=== PATIENT | female | born 1945 | race Caucasian/White ===

== ENCOUNTER 2019-12-12 07:51 | Outpatient (CLI) | payer MEDICARE, SELFPAY ==
[2019-12-12 08:48] LABS: Hematocrit 41.2 % (37.0-47.0); Hemoglobin 13.7 g/dL (12.0-15.0); Mean Corpuscular HGB Conc 33.3 g/dl (32-36); Mean Corpuscular Hemoglobin 30.9 pg (26-34); Mean Corpuscular Volume 92.8 fl (80-100); Mean Platelet Volume 9.5 fl (7.4-10.4); Platelet Count Result 353 k/mm3 (150-375); Red Blood Count 4.44 M/mm3 (4.2-5.4); Red Cell Distribution Width 13.3 % (11.5-14.5); White Blood Count 7.8 K/mm3 (4.5-10.0)
[2019-12-12 08:52] LABS: Alanine Aminotransferase 25 U/L (4-35); Albumin Level 4.4 g/dL (3.5-5.1); Alkaline Phosphatase 90 U/L (38-126); Aspartate Amino Transferase 31 U/L (14-36); Bilirubin,Total 1.3 mg/dL (0.2-1.3); Blood Urea Nitrogen 18 mg/dL (7-17); Calcium 9.3 mg/dL (8.4-10.2); Carbon Dioxide 25 mmol/L (22-30); Chloride 105 mmol/L (98-107); Cholesterol 187 mg/dL (0-200); Estimated Glomerular Filt Rate 44; Glucose 102 mg/dL (65-105); HDL Direct 40 mg/dL; Potassium 4.3 mmol/L (3.4-5.0); Rheumatoid Factor < 8.6 IU/ML (<12); Sodium 140 mmol/L (137-145); Triglycerides 276 mg/dL (<150)
[2019-12-12 09:03] LABS: LDL Cholesterol Direct 92 mg/dL
[2019-12-12 09:12] LABS: Creatinine Urine 138.8 mg/dL
[2019-12-12 09:16] LABS: MALB Creatinine Ratio 5.8 mg/g (0-30)
[2019-12-12 09:27] LABS: Free T4 Free Thyroxine 1.05 ng/mL (0.78-2.19)
[2019-12-12 09:49] LABS: Erythrocyte Sedimentation Rate 19 mm/hr (0-20)
== END 2019-12-12 07:52 | disposition home or self-care (01) ==
PROVIDERS: PCP Emergency Medicine; Visit Provider Emergency Medicine
DX: I10 Essential (primary) hypertension (principal); K21.0 Gastro-esophageal reflux disease with esophagitis; G62.9 Polyneuropathy, unspecified; N28.9 Disorder of kidney and ureter, unspecified
CPT/HCPCS: 36415; 80053; 80061; 82043; 84439; 84443; 85027; 85652; 86038; 86430

== ENCOUNTER 2020-03-22 07:38 | Outpatient (CLI) | payer MEDICARE, SELFPAY ==
[2020-03-22 08:10] LABS: Creatinine Urine 96.8 mg/dL; Total Protein Urine Random 9 mg/dL
[2020-03-22 09:09] LABS: Blood Urea Nitrogen 22 mg/dL (7-17); Calcium 8.9 mg/dL (8.4-10.2); Carbon Dioxide 23 mmol/L (22-30); Chloride 106 mmol/L (98-107); Estimated Glomerular Filt Rate 44; Glucose 102 mg/dL (65-105); Sodium 139 mmol/L (137-145)
[2020-03-22 10:40] LABS: Phosphorus 3.5 mg/dL (2.5-4.5)
== END 2020-03-22 07:39 | disposition home or self-care (01) ==
PROVIDERS: PCP Emergency Medicine; Visit Provider Internal Medicine Nephrology
DX: I12.9 Hypertensive chronic kidney disease with stage 1 through stage 4 chronic kidney disease, or unspecified chronic kidney disease (principal); N18.3 Chronic kidney disease, stage 3 (moderate)
CPT/HCPCS: 36415; 80069; 82570; 84156

== ENCOUNTER 2020-05-10 09:22 | Outpatient (CLI) | payer MEDICARE, SELFPAY ==
[2020-05-10 10:22] LABS: Iron 131 ug/dL (37-170)
== END 2020-05-10 09:23 | disposition home or self-care (01) ==
PROVIDERS: PCP Emergency Medicine; Visit Provider Emergency Medicine
DX: D50.9 Iron deficiency anemia, unspecified (principal)
CPT/HCPCS: 36415; 83540

== ENCOUNTER 2020-06-16 11:32 | Outpatient (CLI) | payer MEDICARE, SELFPAY ==
--- NOTE | ~2020-06-16 | MM_ITS ---
EXAMINATION: MM screening stephenie BI w bharat HISTORY: Screening mammogram TECHNIQUE: Craniocaudal and mediolateral oblique 3-D tomosynthesis images were obtained and synthetic 2-D images were generated. CAD analysis was submitted and interpreted. COMPARISON: 12/18/2018, 04/21/2017, 04/19/2015 bilateral digital screening mammogram examinations BREAST PARENCHYMAL COMPOSITION: The breasts are almost entirely fatty. FINDINGS: There is no evidence of suspicious mass, calcification, or architectural distortion to sugg est malignancy in either breast. There has been no suspicious interval change. IMPRESSION: 1. No mammographic evidence of malignancy. 2. Recommend routine screening mammography in one year. BI-RADS Category 1: Negative Reviewed, dictated and finalized at location A.
== END 2020-06-16 11:33 | disposition home or self-care (01) ==
LOC: ANHIMG 11:36
PROVIDERS: PCP Emergency Medicine; Visit Provider Emergency Medicine
DX: Z12.31 Encounter for screening mammogram for malignant neoplasm of breast (principal)
CPT/HCPCS: 77063; 77067

== ENCOUNTER 2020-08-04 08:15 | Outpatient (CLI) | payer MEDICARE, SELFPAY ==
[2020-08-04 09:01] LABS: Creatinine Urine 138.5 mg/dL; Total Protein Urine Random 9 mg/dL
[2020-08-04 09:08] LABS: Albumin Level 4.2 g/dL (3.5-5.1); Blood Urea Nitrogen 18 mg/dL (7-17); Calcium 9.5 mg/dL (8.4-10.2); Carbon Dioxide 28 mmol/L (22-30); Estimated Glomerular Filt Rate 40; Glucose 111 mg/dL (65-105); Phosphorus 3.8 mg/dL (2.5-4.5)
[2020-08-04 09:19] LABS: Anion Gap 9 mmol/L (8-16); Chloride 102 mmol/L (98-107); Potassium 4.3 mmol/L (3.4-5.0); Sodium 139 mmol/L (137-145)
== END 2020-08-04 08:16 | disposition home or self-care (01) ==
PROVIDERS: PCP Emergency Medicine; Visit Provider Internal Medicine Nephrology
DX: N18.32 Chronic kidney disease, stage 3b (principal); I12.9 Hypertensive chronic kidney disease with stage 1 through stage 4 chronic kidney disease, or unspecified chronic kidney disease; E55.9 Vitamin D deficiency, unspecified
CPT/HCPCS: 36415; 80069; 82570; 84156

== ENCOUNTER 2020-08-12 06:54 | Outpatient (NON) | payer MEDICARE, SELFPAY ==
[2020-08-13 14:52] LABS: SARS-CoV-2 RNA PCR Negative
== END 2020-08-12 06:55 ==
LOC: ANHCOVIDDT 07:05
PROVIDERS: PCP Emergency Medicine; Visit Provider Emergency Medicine
DX: R51.9 Headache, unspecified (principal); Z20.828 Contact with and (suspected) exposure to other viral communicable diseases
CPT/HCPCS: 87635; C9803; U0003

== ENCOUNTER 2020-11-19 08:08 | Outpatient (CLI) | payer MEDICARE, SELFPAY ==
[2020-11-19 08:48] LABS: Hematocrit 43.2 % (37.0-47.0); Hemoglobin 14.7 g/dL (12.0-15.0); Mean Corpuscular Hemoglobin 31.8 pg (26-34); Mean Corpuscular Volume 93.5 fl (80-100); Mean Platelet Volume 9.5 fl (7.4-10.4); Platelet Count Result 319 k/mm3 (150-375); Red Blood Count 4.62 M/mm3 (4.2-5.4); Red Cell Distribution Width 13.7 % (11.5-14.5); White Blood Count 7.6 K/mm3 (4.5-10.0)
[2020-11-19 09:00] LABS: Alanine Aminotransferase 26 U/L (4-35); Albumin Level 4.3 g/dL (3.5-5.1); Alkaline Phosphatase 78 U/L (38-126); Anion Gap 7 mmol/L (8-16); Aspartate Amino Transferase 33 U/L (14-36); Bilirubin,Total 1.7 mg/dL (0.2-1.3); Blood Urea Nitrogen 19 mg/dL (7-17); Calcium 9.6 mg/dL (8.4-10.2); Carbon Dioxide 26 mmol/L (22-30); Chloride 106 mmol/L (98-107); Cholesterol 190 mg/dL (0-200); Estimated Glomerular Filt Rate 40; Glucose 110 mg/dL (65-105); HDL Direct 43 mg/dL; Potassium 4.4 mmol/L (3.4-5.0); Sodium 139 mmol/L (137-145); Triglycerides 189 mg/dL (<150)
[2020-11-19 09:11] LABS: LDL Cholesterol Direct 96 mg/dL
[2020-11-19 09:53] LABS: Iron 148 ug/dL (37-170)
[2020-11-19 10:02] LABS: Percent Iron Saturation 40 % (20-50)
[2020-11-19 10:10] LABS: Free T4 Free Thyroxine 1.18 ng/mL (0.78-2.19)
[2020-11-19 10:15] LABS: Vitamin D 25 Hydroxy 50.6 ng/mL
[2020-11-19 10:25] LABS: Add Urine Microscopic? YES; Appearance Urine Clear (Clear); Bilirubin Urine Negative (Negative); Blood Urine Negative (Negative); Color Urine Yellow (Yellow); Glucose Urine UA Negative (Negative); Ketones Urine Negative (Negative); Leukocyte Esterase Ur 2+ LEU/UL (NEGATIVE); Mucus Urine Few /lpf; Nitrate Urine Negative (Negative); Protein Urine Negative (Negative); Specific Grav Ur 1.016 (1.001-1.035); Squamous Epithelial Cell Urine Many /hpf (Few); Transitional Epi Cells Urine Rare /hpf (None Seen); Urobilinogen Urine Negative mg/dL (<2.0)
[2020-11-19 10:43] LABS: Creatinine Urine 190.2 mg/dL
[2020-11-19 10:48] LABS: MALB Creatinine Ratio 7.1 mg/g (0-30); Microalbumin Urine Random 13.5 mg/L (0-16.7)
== END 2020-11-19 08:09 | disposition home or self-care (01) ==
PROVIDERS: PCP Emergency Medicine; Visit Provider Emergency Medicine
DX: D64.9 Anemia, unspecified (principal); M54.5 Low back pain; I12.9 Hypertensive chronic kidney disease with stage 1 through stage 4 chronic kidney disease, or unspecified chronic kidney disease; N18.30 Chronic kidney disease, stage 3 unspecified
CPT/HCPCS: 36415; 80053; 80061; 81001; 82043; 82306; 83540; 83550; 84439; 84443; 85027

== ENCOUNTER 2020-12-23 07:39 | Outpatient (CLI) | payer MEDICARE, SELFPAY ==
[2020-12-23 09:17] LABS: Add Urine Microscopic? YES; Appearance Urine Cloudy (Clear); Bacteria Urine Trace /hpf; Bilirubin Urine Negative (Negative); Blood Urine Negative (Negative); Color Urine Yellow (Yellow); Glucose Urine UA Negative (Negative); Ketones Urine Negative (Negative); Leukocyte Esterase Ur 3+ LEU/UL (NEGATIVE); Mucus Urine Rare /lpf; Nitrate Urine Negative (Negative); Protein Urine Negative (Negative); Specific Grav Ur 1.017 (1.001-1.035); Squamous Epithelial Cell Urine Many /hpf (Few); Urobilinogen Urine Negative mg/dL (<2.0); WBC Urine 31-50 /hpf (0-3)
[2020-12-23 09:25] LABS: Alanine Aminotransferase 29 U/L (4-35); Albumin Level 4.1 g/dL (3.5-5.1); Alkaline Phosphatase 78 U/L (38-126); Anion Gap 6 mmol/L (8-16); Aspartate Amino Transferase 38 U/L (14-36); Bilirubin,Total 1.5 mg/dL (0.2-1.3); Blood Urea Nitrogen 26 mg/dL (7-17); Carbon Dioxide 28 mmol/L (22-30); Chloride 105 mmol/L (98-107); Estimated Glomerular Filt Rate 44; Glucose 107 mg/dL (65-105); Potassium 4.2 mmol/L (3.4-5.0); Sodium 139 mmol/L (137-145)
[2020-12-23 10:14] LABS: Free T4 Free Thyroxine 1.11 ng/mL (0.78-2.19)
[2020-12-26 06:03] LABS: Thyroid Peroxidase Antibodies 663 IU/mL (<9)
[2020-12-26 08:03] LABS: Triiodothyronine T3 Free 2.9 pg/mL (2.3-4.2)
== END 2020-12-23 07:40 | disposition home or self-care (01) ==
LOC: ANHLAB 07:47
PROVIDERS: PCP Emergency Medicine; Visit Provider Emergency Medicine
DX: R79.89 Other specified abnormal findings of blood chemistry (principal); E03.9 Hypothyroidism, unspecified
CPT/HCPCS: 36415; 80053; 81001; 84439; 84443; 84481; 86376; 87077; 87086; 87088; 87186

== ENCOUNTER 2021-01-06 09:49 | Outpatient (CLI) | payer MEDICARE, SELFPAY ==
[2021-01-06 10:20] LABS: Add Urine Microscopic? YES; Appearance Urine Clear (Clear); Bilirubin Urine Negative (Negative); Blood Urine Negative (Negative); Color Urine Yellow (Yellow); Glucose Urine UA Negative (Negative); Ketones Urine Negative (Negative); Leukocyte Esterase Ur Trace LEU/UL (NEGATIVE); Mucus Urine Rare /lpf; Nitrate Urine Negative (Negative); Protein Urine Negative (Negative); Specific Grav Ur 1.012 (1.001-1.035); Squamous Epithelial Cell Urine Occasional /hpf (Few); Urobilinogen Urine Negative mg/dL (<2.0); WBC Urine 0-3 /hpf (0-3)
== END 2021-01-06 09:50 | disposition home or self-care (01) ==
LOC: ANHLAB 09:53
PROVIDERS: PCP Emergency Medicine; Visit Provider Emergency Medicine
DX: N39.0 Urinary tract infection, site not specified (principal)
CPT/HCPCS: 81001; 87077; 87086; 87088; 87147; 87181; 87186

== ENCOUNTER 2021-01-28 08:25 | Outpatient (CLI) | payer MEDICARE, SELFPAY ==
[2021-01-28 08:56] LABS: Creatinine Urine 151.9 mg/dL; Total Protein Urine Random 11 mg/dL; Ur Ttl Prot Creatinine Ratio 0.07 mg/mg (0-0.20)
[2021-01-28 08:59] LABS: Albumin Level 4.1 g/dL (3.5-5.1); Anion Gap 5 mmol/L (8-16); Blood Urea Nitrogen 24 mg/dL (7-17); Carbon Dioxide 27 mmol/L (22-30); Chloride 107 mmol/L (98-107); Estimated Glomerular Filt Rate 37; Glucose 107 mg/dL (65-105); Phosphorus 3.6 mg/dL (2.5-4.5); Potassium 4.2 mmol/L (3.4-5.0); Sodium 139 mmol/L (137-145)
[2021-01-28 09:25] LABS: Parathyroid Intact 46.7 pg/mL (7.5-53.5)
[2021-01-28 10:08] LABS: Vitamin D 25 Hydroxy 45.9 ng/mL
== END 2021-01-28 08:26 | disposition home or self-care (01) ==
PROVIDERS: PCP Emergency Medicine; Visit Provider Internal Medicine Nephrology
DX: I12.9 Hypertensive chronic kidney disease with stage 1 through stage 4 chronic kidney disease, or unspecified chronic kidney disease (principal); N18.32 Chronic kidney disease, stage 3b
CPT/HCPCS: 36415; 80069; 82306; 82570; 83970; 84156

== ENCOUNTER 2021-02-16 12:13 | Outpatient (CLI) | payer MEDICARE, SELFPAY ==
[2021-02-16 13:22] LABS: Add Urine Microscopic? NO; Appearance Urine Clear (Clear); Bilirubin Urine Negative (Negative); Blood Urine Negative (Negative); Color Urine Straw (Yellow); Glucose Urine UA Negative (Negative); Ketones Urine Negative (Negative); Leukocyte Esterase Ur Negative LEU/UL (NEGATIVE); Nitrate Urine Negative (Negative); Protein Urine Negative (Negative); Specific Grav Ur 1.009 (1.001-1.035); Urobilinogen Urine Negative mg/dL (<2.0)
== END 2021-02-16 12:14 | disposition home or self-care (01) ==
PROVIDERS: PCP Emergency Medicine; Visit Provider Emergency Medicine
DX: N39.0 Urinary tract infection, site not specified (principal)
CPT/HCPCS: 81003; 87086; 87088

== ENCOUNTER 2021-03-11 08:24 | Outpatient (CLI) | payer MEDICARE, SELFPAY ==
[2021-03-11 09:36] LABS: Alanine Aminotransferase 25 U/L (4-35); Albumin Level 4.1 g/dL (3.5-5.1); Alkaline Phosphatase 77 U/L (38-126); Anion Gap 9 mmol/L (8-16); Aspartate Amino Transferase 34 U/L (14-36); Bilirubin,Total 1.5 mg/dL (0.2-1.3); Blood Urea Nitrogen 19 mg/dL (7-17); Calcium 9.4 mg/dL (8.4-10.2); Carbon Dioxide 23 mmol/L (22-30); Chloride 107 mmol/L (98-107); Cholesterol 179 mg/dL (0-200); Estimated Glomerular Filt Rate 40; Glucose 105 mg/dL (65-105); HDL Direct 37 mg/dL; Potassium 4.4 mmol/L (3.4-5.0); Sodium 139 mmol/L (137-145); Triglycerides 266 mg/dL (<150)
[2021-03-11 11:55] LABS: Free T4 Free Thyroxine 1.21 ng/mL (0.78-2.19)
[2021-03-11 12:50] LABS: Folic Acid 10.1 ng/mL (2.76->20)
[2021-03-11 15:29] LABS: LDL Cholesterol Direct 68 mg/dL
[2021-03-14 05:37] LABS: Insulin Level Total 13.7 uIU/mL (<=19.6); Thyroid Peroxidase Antibodies 458 IU/mL (<9)
[2021-03-15 12:17] LABS: Triiodothyronine T3 Free 2.6 pg/mL (2.3-4.2)
== END 2021-03-11 08:25 | disposition home or self-care (01) ==
PROVIDERS: PCP Emergency Medicine; Visit Provider Internal Medicine Endocrinology, Diabetes & Metabolism
DX: E06.3 Autoimmune thyroiditis (principal); R73.01 Impaired fasting glucose
CPT/HCPCS: 36415; 80053; 80061; 82607; 82746; 83036; 83525; 84439; 84443; 84481; 86376

== ENCOUNTER 2021-03-15 09:50 | Outpatient (CLI) | payer MEDICARE, SELFPAY ==
--- NOTE | ~2021-03-15 | US_ITS ---
EXAMINATION: US thyroid EXAM DATE: 03/15/2021 10:31 INDICATION: Goiter. TECHNIQUE: Multiple grayscale and Doppler images of the thyroid were obtained (by a technologist who performed the scan) and subsequently reviewed. Individual nodules and recommendations may be reporte d in accordance with TI-RADS system as designated by the 2017 ACR White Paper TI-RADS committee. The re is no prior study for comparison. FINDINGS: Right thyroid lobe measures 4.3 x 2.7 x 1.5 cm, the left measuring 4.0 x 2.9 x 1.4 cm. There is moder ately heterogeneous thyroid echogenicity without focal nodule identified. IMPRESSION: Mild thyromegaly. Reviewed, dictated and finalized at location B. IMPRESSION: Mild thyromegaly.
== END 2021-03-15 09:51 | disposition home or self-care (01) ==
LOC: ANHIMG 09:53
PROVIDERS: PCP Emergency Medicine; Visit Provider Internal Medicine Endocrinology, Diabetes & Metabolism
DX: E04.9 Nontoxic goiter, unspecified (principal)
CPT/HCPCS: 76536

== ENCOUNTER 2021-07-01 09:45 | Outpatient (CLI) | payer MEDICARE, SELFPAY ==
--- NOTE | ~2021-07-01 | MM_ITS ---
EXAMINATION: MM screening stephenie BI w bharat HISTORY: Screening TECHNIQUE: Craniocaudal and mediolateral oblique 3-D tomosynthesis images were obtained and synthetic 2-D images were generated. CAD analysis was submitted and interpreted. COMPARISON: Comparison to multiple prior studies sequentially, with oldest reviewed study dated 01/27. BREAST PARENCHYMAL COMPOSITION: The breasts are almost entirely fatty. FINDINGS: There is no evidence of suspicious mass, calcification, or architectural distortion to sugg est malignancy in either breast. There has been no suspicious interval change. IMPRESSION: 1. No mammographic evidence of malignancy. 2. Recommend routine screening mammography in one year. BI-RADS Category 1: Negative Reviewed, dictated and finalized at location A.
== END 2021-07-01 09:46 | disposition home or self-care (01) ==
LOC: ANHIMG 09:48
PROVIDERS: PCP Student in an Organized Health Care Education/Training Program; Visit Provider Student in an Organized Health Care Education/Training Program
DX: Z12.31 Encounter for screening mammogram for malignant neoplasm of breast (principal)
CPT/HCPCS: 77063; 77067

== ENCOUNTER 2021-08-02 07:39 | Outpatient (CLI) | payer MEDICARE, SELFPAY ==
[2021-08-02 09:43] LABS: Albumin Level 4.3 g/dL (3.5-5.1); Anion Gap 12 mmol/L (8-16); Blood Urea Nitrogen 21 mg/dL (7-17); Calcium 9.6 mg/dL (8.4-10.2); Carbon Dioxide 22 mmol/L (22-30); Chloride 106 mmol/L (98-107); Estimated Glomerular Filt Rate 40; Glucose 112 mg/dL (65-110); Phosphorus 3.9 mg/dL (2.5-4.5); Potassium 4.3 mmol/L (3.4-5.0); Sodium 140 mmol/L (137-145)
[2021-08-02 20:03] LABS: Creatinine Urine 218.4 mg/dL
[2021-08-02 20:07] LABS: Total Protein Urine Random < 5 mg/dL; Ur Ttl Prot Creatinine Ratio < 0.02 mg/mg (0-0.20)
== END 2021-08-02 07:40 | disposition home or self-care (01) ==
PROVIDERS: PCP Student in an Organized Health Care Education/Training Program; Referring Provider Emergency Medicine; Visit Provider Internal Medicine Nephrology
DX: I12.9 Hypertensive chronic kidney disease with stage 1 through stage 4 chronic kidney disease, or unspecified chronic kidney disease (principal); N18.32 Chronic kidney disease, stage 3b
CPT/HCPCS: 36415; 80069; 82570; 84156

== ENCOUNTER 2021-08-31 09:58 | Outpatient (CLI) | payer MEDICARE, SELFPAY ==
[2021-08-31 10:45] LABS: Alanine Aminotransferase 25 U/L (4-35); Albumin Level 4.2 g/dL (3.5-5.1); Alkaline Phosphatase 79 U/L (38-126); Anion Gap 8 mmol/L (8-16); Aspartate Amino Transferase 21 U/L (14-36); Bilirubin,Total 1.4 mg/dL (0.2-1.3); Blood Urea Nitrogen 33 mg/dL (7-17); Calcium 9.5 mg/dL (8.4-10.2); Carbon Dioxide 24 mmol/L (22-30); Chloride 104 mmol/L (98-107); Estimated Glomerular Filt Rate 44; Glucose 98 mg/dL (65-110); Hemoglobin A1C 5.7 % (<5.7); Potassium 4.5 mmol/L (3.4-5.0); Sodium 136 mmol/L (137-145)
[2021-08-31 11:05] LABS: Free T4 Free Thyroxine 1.45 ng/mL (0.78-2.19)
[2021-09-03 03:21] LABS: Insulin Level Total 9.6 uIU/mL (<=19.6)
== END 2021-08-31 09:59 | disposition home or self-care (01) ==
PROVIDERS: PCP Student in an Organized Health Care Education/Training Program; Visit Provider Internal Medicine Endocrinology, Diabetes & Metabolism
DX: E06.3 Autoimmune thyroiditis (principal); R73.01 Impaired fasting glucose
CPT/HCPCS: 36415; 80053; 83036; 83525; 84439; 84443

== ENCOUNTER 2022-01-13 13:54 | Outpatient (CLI) | payer MEDICARE, SELFPAY ==
--- NOTE | ~2022-01-13 | US_ITS ---
EXAMINATION: US venous doppler LE RT DATE: 01/13/2022 14:26 INDICATION: Right lower limb swelling. TECHNIQUE: Grayscale ultrasound images without and with compression and Doppler ultrasound images of the right lower extremity veins were obtained. COMPARISON: None. FINDINGS: The visualized portions of right common femoral vein, profunda (deep) femoral vein, femoral vein, pop liteal vein, peroneal veins, posterior tibial veins, and greater saphenous vein outflow are patent. IMPRESSION: 1. No deep venous thrombosis. Reviewed, dictated and finalized at location A.
== END 2022-01-13 13:55 | disposition home or self-care (01) ==
PROVIDERS: PCP Student in an Organized Health Care Education/Training Program; Visit Provider Orthopaedic Surgery
DX: R60.0 Localized edema (principal)
CPT/HCPCS: 93971

== ENCOUNTER 2022-02-02 08:03 | Outpatient (CLI) | payer MEDICARE, SELFPAY ==
[2022-02-02 08:54] LABS: Creatinine Urine 187.8 mg/dL; Total Protein Urine Random 11 mg/dL; Ur Ttl Prot Creatinine Ratio 0.06 mg/mg (0-0.20)
[2022-02-02 08:59] LABS: Albumin Level 4.3 g/dL (3.5-5.1); Anion Gap 9 mmol/L (8-16); Blood Urea Nitrogen 21 mg/dL (7-17); Calcium 9.3 mg/dL (8.4-10.2); Carbon Dioxide 25 mmol/L (22-30); Chloride 104 mmol/L (98-107); Estimated Glomerular Filt Rate 40; Glucose 104 mg/dL (65-110); Phosphorus 3.8 mg/dL (2.5-4.5); Potassium 4.2 mmol/L (3.4-5.0); Sodium 138 mmol/L (137-145)
[2022-02-02 09:11] LABS: Parathyroid Intact 45.6 pg/mL (7.5-53.5)
== END 2022-02-02 08:04 | disposition home or self-care (01) ==
LOC: ANHLAB 08:07
PROVIDERS: PCP Student in an Organized Health Care Education/Training Program; Visit Provider Internal Medicine Nephrology
DX: E55.9 Vitamin D deficiency, unspecified (principal); I12.9 Hypertensive chronic kidney disease with stage 1 through stage 4 chronic kidney disease, or unspecified chronic kidney disease; N18.32 Chronic kidney disease, stage 3b
CPT/HCPCS: 36415; 80069; 82306; 82570; 83970; 84156

== ENCOUNTER 2022-03-30 10:08 | Outpatient (CLI) | payer MEDICARE, SELFPAY ==
--- NOTE | 2022-03-30 10:57 | ECG_ITS ---
Measurements Intervals [place] Rate: 79 P: 23 ME: 205 QRS: -15 QRSD: 77 T: 29 QT: 383 QTc: 440 Interpretive Statements SINUS RHYTHM MODERATE VOLTAGE CRITERIA FOR LVH, CONSIDER NORMAL VARIANT [MEETS CRITERIA IN ONE OF: R(aVL), S(V1), R(V5), R(V5/V6)+S(V1)] NO PREVIOUS ECG AVAILABLE FOR COMPARISON Electronically Signed On 03-30-2022 18:06:22 CDT by Kristy Ridley M.D.
[2022-03-30 11:23] LABS: Basophils Absolute Auto 0.1 K/mm3 (0.0-0.1); Basophils Percent Auto 0.7 % (0.2-1.2); Eosinophils Absolute Auto 0.2 K/mm3 (0-0.3); Eosinophils Percent Auto 1.7 % (0-4.4); Hematocrit 40.8 % (37.0-47.0); Hemoglobin 13.2 g/dL (12.0-15.0); Immature Granulocyte Absolute 0.04 K/mm3 (0.00-0.031); Immature Granulocyte Percent A 0.4 % (0-0.5); Lymphocytes Absolute Auto 2.06 K/mm3 (0.9-3.2); Lymphocytes Percent Auto 21.7 % (18.3-44.2); Mean Corpuscular HGB Conc 32.4 g/dl (32-36); Mean Corpuscular Hemoglobin 29.7 pg (26-34); Mean Corpuscular Volume 91.7 fl (80-100); Mean Platelet Volume 9.1 fl (7.4-10.4); Monocytes Absolute Auto 0.7 K/mm3 (0.1-0.6); Monocytes Percent Auto 7.4 % (2.6-8.5); Neutrophils Absolute Auto 6.5 K/mm3 (1.3-6.7); Neutrophils Percent Auto 68.1 % (45.5-73.1); Platelet Count Result 362 k/mm3 (150-375); Red Blood Count 4.45 M/mm3 (4.2-5.4); Red Cell Distribution Width 13.8 % (11.5-14.5); White Blood Count 9.5 K/mm3 (4.5-10.0)
[2022-03-30 11:32] LABS: Albumin Level 4.4 g/dL (3.5-5.1); Anion Gap 7 mmol/L (8-16); Blood Urea Nitrogen 23 mg/dL (7-17); Calcium 9.1 mg/dL (8.4-10.2); Carbon Dioxide 25 mmol/L (22-30); Chloride 105 mmol/L (98-107); Estimated Glomerular Filt Rate 40; Glucose 107 mg/dL (65-110); Potassium 4.5 mmol/L (3.4-5.0); Sodium 137 mmol/L (137-145)
[2022-03-30 11:36] LABS: Hemoglobin A1C 5.9 % (<5.7)
[2022-03-30 12:02] LABS: Urine Cotinine NEGATIVE
== END 2022-03-30 10:09 | disposition home or self-care (01) ==
LOC: ANHSURGERY 10:15
PROVIDERS: PCP Student in an Organized Health Care Education/Training Program; Visit Provider Orthopaedic Surgery
DX: M17.11 Unilateral primary osteoarthritis, right knee (principal); Z01.818 Encounter for other preprocedural examination; R94.31 Abnormal electrocardiogram [ECG] [EKG]
CPT/HCPCS: 80048; 80307; 82040; 83036; 85025; 87070; 93005

== ENCOUNTER 2022-04-17 01:40 | Day surgery (SDC) | payer MEDICARE, SELFPAY ==
--- NOTE | 2022-03-30 09:44 | PC.NURSE ---
Report to the Outpatient Waiting Room, entrance under the green pavilion located off [facility], at time _0600_ on date _04/17/22_. OR Time: _0730`_. - You and your visitor will be asked a series of questions to screen for COVID 19 for your protection. - Only one visitor is allowed at this time. - The patient visitor is requested to leave or wait in car when not with patient. - A mask is required within the hospital. VISITING HOURS 10AM-8PM, USE MAIN HOSPITAL ENTRANCE (FRONT OF HOSPITAL) Patients may have clear liquids (water, carbonated beverages, clear teas, apple juice) until 3 hours prior to surgery (0430 AM) with a maximum of 20 ounces. - No food from midnight until time of surgery Take the following medications with a SIP of water the morning of surgery: _ LEVOTHYROXINE, TYLENOL & DIAZEPAM IF NEEDED_ Medications to discontinue per JESSICA - PIROXICAM, 7 DAYS PRIOR TO SURGERY, Date to take last dose 04/09/22_ Please no make-up, nail guatemalan, hairspray, perfume, deodorant, or body powder the day of surgery. No jewelry (including any body piercings) or valuables the day of surgery, leave them at home. Please take a shower or bath the night before, or the morning of, surgery with an antibacterial soap. Wear comfortable, loose fitting clothing. - Jewelry must be removed prior to entering the operating room. Rings and piercings that are not removed may be cut off. - The hospital will not accept responsibility for valuables. - Please leave all valuables, including medications, at home the day of surgery. If you are going home after surgery, a licensed courtesy bus driver must drive you home. - NO public transportation without another adult. - We recommend that an adult stay with you for 24 hours following discharge. - We also recommend that you do not drive, make important decision, drink alcoholic beverages, or take any drugs that were not prescribed by your health care provider for at least 24 hours after your discharge time. Follow any additional instructions given to you from your surgeon. TOTAL JOINT CLASS 04/05/22 @ [address] [place] [address] - USE MAIN HOSPITAL ENTRANCE, LOWER LEVEL If you or anyone in your household have experienced Covid symptoms in the past week, please notify your surgeon or the nurse liaison at the phone number below for possible testing. Instructions given to ___PT and asked if any additional questions and then verbalized understanding. Patient advised to call surgeon office or pre surgery nurse liaison [phone] if any additional questions.
[2022-03-30 10:42] VITALS: BP 124/78; PULSE 90; RESP 18; TEMP 37.2; O2SAT 98; BMI 32.3
--- NOTE | 2022-04-14 12:45 | PM.IMHP ---
H&P: HPI History of Present Illness Date/Time: 04/14/22 12:45 Chief Complaint: Right knee DJD Narrative: 76-year-old female patient of Dr. Resendez who presents today for a right total knee arthroplasty. Patient has been having pain in his knee for years. She has severe lateral compartment arthritis with a significant valgus deformity as well as a significant flexion contracture. Patient has been treated this nonsurgically for years. She is on chronic high-dose narcotics. She has reached a point where she feels she wishes to proceed with total knee arthroplasty rather continue nonsurgical treatment. Patient has also been on peroxicam cam chronically. Review of Systems Review of Systems: All systems reviewed & are unremarkable except as noted in HPI and below PMFSH Past Medical History Medical History Gallbladder & bile duct stone with obstruction Neck abrasion Right carpal tunnel syndrome Rotator cuff tear arthropathy of both shoulders Surgical History Surgical History History of left hip replacement Social History Social History Smoking packs per day: 1 Smoking cigarettes per day: 20.0 Smoking status: Former smoker Tobacco type: cigarettes Second hand tobacco smoke exposure: No Smoking end date: 10/01/77 Additional smoking assessment comments: PT UNABLE TO RECALL YRS SMOKED - DENIES ALL FORMS OF TOBACCO USE Alcohol intake: never Substance use: never Substance use type: does not use Additional living arrangements comments: DAUGHTER YORDY TO STAY WITH PT POST OP Spiritual care concerns: No Meds Home Medications and Allergies Home Medications Medication Instructions Recorded Confirmed Type diazepam 5 mg tablet (Valium) 5 mg PO TID PRN Anxiety 04/22/21 03/30/22 History levothyroxine 75 mcg tablet 75 mcg PO QAM 04/22/21 03/30/22 History (Synthroid) omeprazole 20 mg capsule,delayed 20 mg PO QAM 04/22/21 03/30/22 History release acetaminophen 500 mg tablet 750 mg PO Q6H PRN Pain 03/30/22 03/30/22 History cholecalciferol (vitamin D3) 250 250 mcg PO QAM 03/30/22 03/30/22 History mcg (10,000 unit) tablet olmesartan 20 mg tablet 10 mg QAM 03/30/22 03/30/22 History piroxicam 10 mg capsule 10 mg BID 03/30/22 03/30/22 History Allergies Allergy/AdvReac Type Severity Reaction Status Date / Time tramadol Allergy Seizure Verified 03/30/22 10:42 quinidine AdvReac Severe ??REACTION--ADVISED Verified 03/30/22 10:[address] SMITH NEVER TO TAKE codeine AdvReac Intermediate N/V Verified 03/30/22 10:35 Influenza Virus Vaccines AdvReac Intermediate RASH Verified 03/30/22 10:35 procaine AdvReac Intermediate DIAPHORETIC Verified 03/30/22 10:35 /N/V Penicillins AdvReac Mild RASH ON Verified 03/30/22 10:35 CHEST propoxyphene AdvReac Mild N/V Verified 03/30/22 10:35 Bumble Bee Allergy Unknown Itching Uncoded 03/30/22 10:35 Honey Bee Allergy Unknown Itching Uncoded 03/30/22 10:35 Wasp Allergy Unknown Itching Uncoded 03/30/22 10:35 Exam Narrative: 76-year-old female alert pleasant. She is 5 ft 3 and 181 lb. BMI is 32.1. She uses a four-wheel walker full-time basis. She does have a prominent Trendelenburg sag on the right when she walks. Her right knee range of motion is from 15-120 degrees. There is no effusion. Moderate tenderness over lateral aspect of the knee to palpation. Moderate parapatellar pain palpation. Obvious valgus deformity. Neurological exam to the right leg is normal. She has normal muscle strength in all muscle groups. Her right hip has decreased range of motion and pain with range of motion. She does have known moderately severe arthritis of. 2+ dorsalis pedis pulse in her foot. Assessment and Plan Assessment and plan (1) Right knee DJD: Code(s): M17.11 - Unilateral primary
[2022-04-17] VITALS (15 sets, daily range): BP systolic 130–154; BP diastolic 68–83; PULSE 73–91; RESP 12–18; TEMP 36.3–36.9; O2SAT 91–100
--- NOTE | ~2022-04-17 | XR_ITS ---
EXAMINATION: XR knee RT 2V DATE: 04/17/2022 11:29 INDICATION: Postoperative evaluation following right total knee arthroplasty. TECHNIQUE: Anteroposterior and lateral views of the right knee were obtained. COMPARISON: None. FINDINGS: Right total knee arthroplasty with patellar resurfacing appears well seated and in near anatomic alig nment. No fractures identified. Expected postoperative subcutaneous, intramedullary and intra-articu lar gas. IMPRESSION: 1. Right total knee arthroplasty, negative for postoperative purposes. Reviewed, dictated and finalized at location A.
[2022-04-17] MEDS: ACETAMINOPHEN 500 MG TABLET 1000 MG PO ×4 (06:26→23:56)
--- NOTE | 2022-04-17 06:54 | WPDANESEPPF ---
Anes - Initial Pre Proc Eval Procedure: Operation Date: 04/17/22 07:30 Proposed Procedures p Right Total Knee Arthroplasty - Rene Dutta MD Date/Time: 04/17/22 06:54 Surgeon: Rene Dutta MD Pre Op Diagnosis: oa right knee Patient Data Age: 76 Gender: F Height: 1.6 m Weight: 82.4 kg Last Vital Signs Temp 37.2 C 03/30/22 10:42 Pulse 90 03/30/22 10:42 Resp 18 03/30/22 10:42 BP 124/78 03/30/22 10:42 Pulse Ox 98 03/30/22 10:42 O2 Del Method Room Air 03/30/22 10:42 Allergies Allergy/AdvReac Type Severity Reaction Status Date / Time tramadol Allergy Seizure Verified 04/17/22 06:19 quinidine AdvReac Severe ??REACTION--ADVISED Verified 04/17/22 06:[address] SMITH NEVER TO TAKE codeine AdvReac Intermediate N/V Verified 04/17/22 06:19 Influenza Virus Vaccines AdvReac Intermediate RASH Verified 04/17/22 06:19 procaine AdvReac Intermediate DIAPHORETIC Verified 04/17/22 06:19 /N/V Penicillins AdvReac Mild RASH ON Verified 04/17/22 06:19 CHEST propoxyphene AdvReac Mild N/V Verified 04/17/22 06:19 Home Medications Medication Instructions Recorded Confirmed Type diazepam 5 mg tablet (Valium) 5 mg PO TID PRN Anxiety 04/22/21 04/17/22 History omeprazole 20 mg capsule,delayed 20 mg PO QAM 04/22/21 04/17/22 History release acetaminophen 500 mg tablet 750 mg PO Q6H PRN Pain 03/30/22 04/17/22 History cholecalciferol (vitamin D3) 250 250 mcg PO QAM 03/30/22 04/17/22 History mcg (10,000 unit) tablet olmesartan 20 mg tablet 10 mg QAM 03/30/22 04/17/22 History piroxicam 10 mg capsule 10 mg BID 03/30/22 04/17/22 History levothyroxine 112 mcg tablet 1 tablet PO QAM 04/17/22 04/17/22 History Patient hx anesthesia problems: post op nausea/vomiting Family hx anesthesia problems: none Results Review: All pre-operative results and documents have been reviewed as part of the pre-operative evaluation. [facility] Past Medical History Medical History Arthritis Hypertension Hypothyroid Surgical History Surgical History History of left hip replacement Social History Social History Smoking packs per day: 1 Smoking cigarettes per day: 20.0 Smoking status: Former smoker Tobacco type: cigarettes Second hand tobacco smoke exposure: No Smoking end date: 10/01/77 Additional smoking assessment comments: PT UNABLE TO RECALL YRS SMOKED - DENIES ALL FORMS OF TOBACCO USE Alcohol intake: never Substance use: never Substance use type: does not use Living arrangements: alone Additional living arrangements comments: DAUGHTER YORDY TO STAY WITH PT POST OP Spiritual care concerns: No Anes - Eval Final PreProcedure Day of Procedure 04/17/22 06:54 Patient weight: obese Heart: regular rate and rhythm Lungs: decreased breath sounds Airway: Mallampati scale class II Neurological: other (alert) Last oral intake: >/= 8 hours ASA classification: III Emergent: no Anesthetic plan: proceed Anesthesia type and monitoring: general LMA and standard monitoring Results Review: All pre-operative results and documents have been reviewed as part of the pre-operative evaluation. Informed Consent: The patient's anesthetic plan and its attendant risks and benefits were discussed with the patient/family/POA. Questions were solicited and answers provided to the satisfaction of the patient/family/POA.
[2022-04-17] MEDS: LACTATED RINGERS 1,000 ML 30 ML IV CONT (07:02)
[2022-04-17] MEDS: TRANEXAMIC ACID 1,000MG/ISO100 1,000 MG/100 ML BAG 200 MG IVPB (07:03)
--- NOTE | 2022-04-17 07:13 | WPDHPUPDATE1 ---
History and Physical Update Update Date/Time: 04/17/22 07:13 History and Physical has been reviewed, including an updated exam of the patient. There are NO changes in the patient's condition. Risks, benefits, and alternatives have been discussed and questions answered. Patient agrees to proceed with procedure.
[2022-04-17] MEDS: ceFAZolin 2 GM/D5W 50 ML 2 GM/50 ML BAG IVPB (07:40)
[2022-04-17] MEDS: ceFAZolin SODIUM 1 GM VIAL 3 GM (09:00)
[2022-04-17] MEDS: TRANEXAMIC ACID 1,000 MG/10 ML AMPUL 1000 MG IV PUSH (10:40)
[2022-04-17] MEDS: ceFAZolin SODIUM 1 GM VIAL IV PUSH (10:40)
--- NOTE | 2022-04-17 11:33 | W.PM.PROC2 ---
Procedure Note - Detailed Date of Procedure 04/17/22 Pre-op Diagnosis oa right knee, grade 3 valgus deformity Post-op Diagnosis Same Procedure Performed Right total knee arthroplasty with Biomet SSK semi constrained implants Surgeon Rene Dutta MD Professor Of Exercise Science Ricky Anesthesia General Description of Procedure Patient was brought to the operating room and general anesthesia was administered. The right knee was prepped draped usual fashion. She had about a 4 5 degree flexion contracture with mild valgus laxity under anesthesia. She received 2 g Ancef weight based vancomycin 1 g of tranexamic acid preoperatively. Limb was exsanguinated tourniquet elevated to 250 mmHg. A 7 in longitudinal midline incision was used and a vastus medialis splitting approach utilized splitting the vastus medialis at the level of the superior pole of patella. Infrapatellar and suprapatellar fat pads were excised a quadriceps synovectomy carried out. The patella had mild arthritic change. It measured 23.5 mm in thickness was cut to 15.5 mm. Protector cap applied. Guide anthony was inserted on the femoral canal after aspiration of canal contents and used the 5 degree valgus cutting bushing, 10 mm of bone removed the distal femur. This removed approximately 4 or 5 mm on the lateral side. There was gross asymmetry on extension gap between the medial and lateral side and with her 20 degree anatomic axis valgus deformity on standing x-ray, we plan to proceed with a constrained implants if the knee did not balance properly and it did not. Next the tibial plateau was cut. We tried to make a skim cut off the low point of the medial tibial plateau in our initial cut was just a little too conservative therefore an additional 2 mm of bone removed from the tibial plateau. Meniscal remnants were excised. Flexion gap measured 9 mm medially despite using a skim cut and this was due to the stretching the medial capsule and we considered 8 mm appropriate for calculation. Lateral side 90? measured 12 mm. Whitesides line was drawn on the femur and we set the cutting guide to 5? of external rotation which matched Whitesides line. She did not have a varus slope to her tibia. Posterior referencing pinholes were placed and the size 65 cutting block applied the distal femur which fit line to line medial to lateral AP and chamfer cuts were made. The 65 fit appropriately. The tibia cut was felt to still be in 1 or 2? of record bottom therefore we reapplied the tibial cutting guide using the same pin hole which just a little bit more slope. The tibia was sized to a 71 which fit line to line anteromedial to posterolateral and this was punched for the 80 mm finned stem 10 mm diameter and this seated flush. We trialed with the 5 in 1 trial. We were a little bit tighter laterally but we did have a mm of opening at 90? of flexion laterally with appropriate anterior drawer stability based on that side with looseness on the medial side. The knee came out almost to full extension just lacking a few degrees. We removed posterior femoral osteophytes and released posterior capsule centrally just lateral to the midline where there was a tight band and trialing again there was just a barely positive bounce with no play laterally therefore an additional mm of bone was removed from the distal femur chamfer cuts revisited and this time the knee came out to full extension with no bounce 1 mm lateral opening and 5 mm medial opening in extension about 6 mm at 30?. In extension the IT band was not tight. We had put the tourniquet down at 75 minutes. The 360 femoral component was applied the distal femur pinned in placed and we cut out the bone from the intercondylar box and prepared the canal with a Boss Reamer and 16 mm cylindrical Reamer for the 40 mm x 14 anthony. We trialed and we had the same findings knee came out to full extension with negative bounce and there is appropriate anterior drawer stability at 90? and 40? and
[2022-04-17] MEDS: fentaNYL CITRATE INJ (*CRX) 100 MCG/2 ML VIAL 25 MCG IV PUSH ×2 (12:02→12:10)
[2022-04-17] MEDS: SODIUM CHLORIDE 0.9% IV 1,000 ML 125 ML IV CONT (13:26)
--- NOTE | 2022-04-17 13:40 | ADMGEN ---
This patient, Celia Patterson, was admitted to 2 Medical Room 242-01. Patient/family oriented to hospital policies and general routines including ID bracelet, bed and alarms, visiting hours, pain management, procedures, bathroom and other care routines, personal items, smoking policy, room service/diet, and visiting hours. Information on how to activate the Rapid Response Team has been discussed. Patient/Family are encouraged to report perceived risks to care and to ask questions if they do not understand what they are told or what they should do. Report received from MARIA Hickey
--- NOTE | 2022-04-17 14:08 | PCOTNOTE ---
Per nursing, pt. unable to be seen as she is still heavily sedated and unable to stay awake. Will follow.
--- NOTE | 2022-04-17 15:54 | PC.NURSE ---
Patient states pain is only a 5, we gave ordered Tylenol and patient unable to stay awake while answering questions. States she is sleepy.
[2022-04-17] MEDS: SENNA/DOCUSATE SODIUM TABLET 2 TAB PO (17:33)
[2022-04-17] MEDS: ONDANSETRON INJ 4 MG/2 ML VIAL IV PUSH (20:17)
[2022-04-17] MEDS: FAMOTIDINE 20 MG TABLET PO (20:18)
[2022-04-17] MEDS: oxyCODONE HCL (*CRX) 5 MG TAB IR PO (20:18)
[2022-04-18 00:03] VITALS: BP 136/68; PULSE 69; RESP 18; TEMP 36.6; O2SAT 98
[2022-04-18] MEDS: oxyCODONE HCL (*CRX) 5 MG TAB IR PO ×2 (00:19→05:57)
[2022-04-18] MEDS: ONDANSETRON INJ 4 MG/2 ML VIAL IV PUSH ×2 (00:19→05:55)
[2022-04-18] MEDS: diazePAM (*CRX) 5 MG TABLET PO (02:50)
[2022-04-18] MEDS: LEVOTHYROXINE SODIUM 112 MCG TABLET PO (05:57)
[2022-04-18] MEDS: ACETAMINOPHEN 500 MG TABLET 1000 MG PO (05:57)
[2022-04-18 05:58] LABS: Basophils Percent Auto 0.1 % (0.2-1.2); Hematocrit 29.7 % (37.0-47.0); Immature Granulocyte Absolute 0.06 K/mm3 (0.00-0.031); Immature Granulocyte Percent A 0.4 % (0-0.5); Lymphocytes Percent Auto 9.2 % (18.3-44.2); Mean Corpuscular HGB Conc 33.7 g/dl (32-36); Mean Corpuscular Hemoglobin 30.4 pg (26-34); Mean Corpuscular Volume 90.3 fl (80-100); Mean Platelet Volume 9.8 fl (7.4-10.4); Monocytes Absolute Auto 1.6 K/mm3 (0.1-0.6); Monocytes Percent Auto 9.6 % (2.6-8.5); Neutrophils Absolute Auto 13.1 K/mm3 (1.3-6.7); Neutrophils Percent Auto 80.7 % (45.5-73.1); Platelet Count Result 276 k/mm3 (150-375); Red Blood Count 3.29 M/mm3 (4.2-5.4); Red Cell Distribution Width 13.7 % (11.5-14.5); White Blood Count 16.3 K/mm3 (4.5-10.0)
[2022-04-18 06:05] LABS: Anion Gap 4 mmol/L (8-16); Blood Urea Nitrogen 17 mg/dL (7-17); Calcium 7.8 mg/dL (8.4-10.2); Carbon Dioxide 24 mmol/L (22-30); Chloride 106 mmol/L (98-107); Estimated CRCL calculation 44 ml/min; Estimated Glomerular Filt Rate 54; Glucose 114 mg/dL (65-110); Potassium 4.1 mmol/L (3.4-5.0); Sodium 134 mmol/L (137-145)
[2022-04-18 06:10] VITALS: BP 123/59; PULSE 77; RESP 16; TEMP 36.1; O2SAT 95
--- NOTE | 2022-04-18 08:30 | PM.IMCN ---
Assessment and Plan Assessment and plan (1) Status post right knee replacement: Code(s): Z96.651 - Presence of right artificial knee joint Status: Acute Assessment and Plan: POD 1 Post op care per ortho Pain medications: Oxycodone 5mg PO Q4H TIFFANY and PRN, Morphine 2mg IV Q4H PRN . Cefazolin X3 bags Bowel: Miralax and Senna Ice pack DVT Eliquis 2.5mg PO Q12H for 12 days PT/OT Give one dose of Reglan for nausea (2) Right knee DJD: Code(s): M17.11 - Unilateral primary osteoarthritis, right knee Status: Acute Assessment and Plan: See above (3) Hypertension: Code(s): I10 - Essential (primary) hypertension Status: Acute Assessment and Plan: BP is 123/59 Continue home medications Trend BP Adjust accordingly (4) Hypothyroid: Code(s): E03.9 - Hypothyroidism, unspecified Status: Acute Assessment and Plan: COntinue home medications Additional Plan thank for allowing us to participate in this case please call for any additional questions HPI Data of Consult Consult date: 04/18/22 Requesting Physician: Rene Dutta MD Primary Care Provider: Vinh Resendez, DO Consult Narrative Reason for consult: medical management Narrative: Celia Patterson is a 76 year old female Medical history of anxiety, hypothyroidism, hypertension who is here for an elective right knee replacement with Dr. Dutta on 04/17/2022. Patient stated that she is having little pain about a 410. She does have an ice pack and stated that it has been helping her as well. She is nauseous but she thinks is pain medicine. She also stated that it could also be from lack of intake. Patient did have a tray for breakfast and stated that she was hoping that would help. She also stated that she gets icterus done which takes pain medicine however she did say Feldene is really only thing that has been helping. She stated that she has been taking ever since 2005 however there are cautious about giving him to work as she stated bed for kidneys however she said her baseline creatinine runs from anywhere from 1-1.3. She also stated that she is not having any urination issues as she chronically goes every 2 hours she stated that it has been happening for years. She denies any chest pain, shortness of breath, weakness, fatigue, visual changes hearing changes, dizziness, syncope, falls, abdominal pain, or vomiting. Patient is being admitted to the hospital services a consult with Ortho for medical management Review of Systems Review of Systems: All systems reviewed & are unremarkable except as noted in HPI and below PMFSH Past Medical History Medical History (Updated 04/18/22 @ 09:56 by RADHA Kidd) Arthritis Hypertension Hypothyroid Surgical History Surgical History (Updated 04/18/22 @ 09:56 by RADHA Kidd) History of left hip replacement Family History Family History Mother Heart disease Hypertension Father Hypertension Social History Social History Social History: patient currently lives at home by herself with her dog that she has had for the last 14 years. She stated that she has 2 kids 2 daughters 4 grandchildren 1 great grandchildren. Patient stated that she was however he of kidney cancer in 2011. Patient wishes to be a full code at this time and she likes her daughter Tonia to be her surrogate Smoking packs per day: 1 Smoking cigarettes per day: 20.0 Smoking status: Former smoker Tobacco type: cigarettes Second hand tobacco smoke exposure: No Smoking end date: 10/01/77 Additional smoking assessment comments: PT UNABLE TO RECALL YRS SMOKED - DENIES ALL FORMS OF TOBACCO USE Alcohol intake: never Substance use: never Substance us
[2022-04-18] MEDS: CHOLECALCIFEROL 1,000 UNITS TABLET 10000 UNITS PO (09:08)
[2022-04-18] MEDS: SENNA/DOCUSATE SODIUM TABLET 2 TAB PO (09:09)
[2022-04-18] MEDS: FAMOTIDINE 20 MG TABLET PO (09:09)
[2022-04-18] MEDS: OLMESARTAN MEDOXOMIL 10 MG TABLET PO (09:09)
[2022-04-18] MEDS: MELOXICAM 7.5 MG TABLET PO (09:10)
[2022-04-18] MEDS: APIXABAN 2.5 MG TABLET PO (09:10)
[2022-04-18] MEDS: polyethylene glycoL 3350 17 GM POWD.PACK PO (09:15)
[2022-04-18] MEDS: METOCLOPRAMIDE HCL INJ 10 MG/2 ML VIAL IV PUSH (10:13)
[2022-04-18 10:35] VITALS: BP 118/58; PULSE 74; RESP 14; TEMP 36.4; O2SAT 93
--- NOTE | 2022-04-18 11:40 | PM.PNORT ---
Subjective Subjective Date/Time Seen: 04/18/22 11:40 Review of Systems Review of Systems: Postop day 1 patient is alert. She did have some nausea overnight and 1 bout of emesis. We will change her pain medicine to 2.5 mg from a5 mg. She was up with therapy today walking well. Her knee has mild swelling. Dressing is dry. Neurovascularly she is intact. Morning labs are noted. Creatinine is down 1.00. Will plan outpatient work with therapy this afternoon and discharged home. Patient is anxious and wanting to home this afternoon. Objective Data Vital Signs Vital Signs: Vital Signs - 24 hr 04/17/22 11:45 04/17/22 12:00 04/17/22 12:15 Temperature Pulse Rate 78 82 78 Respiratory Rate 16 18 14 Blood Pressure 154/80 H 150/76 H 146/83 H Pulse Oximetry 100 98 98 Oxygen Delivery Room Air Nasal Cannula Nasal Cannula Oxygen Flow Rate 2 2 04/17/22 12:30 04/17/22 12:45 04/17/22 13:47 Temperature Pulse Rate 81 88 Respiratory Rate 16 18 Blood Pressure 140/77 146/82 H Pulse Oximetry 97 99 100 Oxygen Delivery Nasal Cannula Nasal Cannula Nasal Cannula Oxygen Flow Rate 2 2 2 04/17/22 13:54 04/17/22 13:10 04/17/22 13:22 Temperature 36.4 C 36.4 C L Pulse Rate 83 87 Respiratory Rate 12 14 Blood Pressure 136/76 137/76 Pulse Oximetry 97 97 99 Oxygen Delivery Nasal Cannula Oxygen Flow Rate 1 04/17/22 13:55 04/17/22 14:55 04/17/22 14:44 Temperature 36.3 C L 36.4 C L Pulse Rate 73 82 Respiratory Rate 18 14 Blood Pressure 139/68 135/75 Pulse Oximetry 95 94 Oxygen Delivery Room Air Oxygen Flow Rate 04/17/22 18:35 04/17/22 20:30 04/18/22 00:03 Temperature 36.9 C 36.6 C 36.6 C Pulse Rate 89 84 69 Respiratory Rate 16 16 18 Blood Pressure 150/74 H 140/72 136/68 Pulse Oximetry 98 91 98 Oxygen Delivery Oxygen Flow Rate 04/18/22 06:10 04/18/22 09:00 04/18/22 10:35 Temperature 36.1 C L 36.4 C L Pulse Rate 77 74 Respiratory Rate 16 14 Blood Pressure 123/59 L 118/58 L Pulse Oximetry 95 93 Oxygen Delivery Room Air Oxygen Flow Rate Intake/Output Intake/Output: Intake & Output 04/15/22 04/16/22 04/17/22 04/18/22 23:59 23:59 23:59 23:59 Intake Total 1470 1220 Balance 1470 1220 Meds/Results Medications: Active Medications Generic Name Dose Route Start Last Admin Trade Name Freq PRN Reason Stop Dose Admin Acetaminophen 1,000 mg 04/17/22 12:50 04/18/22 05:57 Acetaminophen 500 Mg Tablet PO 1,000 mg Q6H TIFFANY Administration Apixaban 2.5 mg 04/18/22 09:00 04/18/22 09:10 Apixaban 2.5 Mg Tablet PO 04/29/22 21:01 2.5 mg Q12HR TIFFANY Administration Cephalexin HCl 500 mg 04/18/22 21:00 Cephalexin 500 Mg Capsule PO Q12HR TIFFANY Diazepam 5 mg 04/17/22 12:50 04/18/22 02:50 Diazepam (*Crx) 5 Mg Tablet PO 5 mg TID PRN Administration Anxiety Diphenhydramine HCl 25 mg 04/17/22 12:50 Diphenhydramine Hcl Inj 50 Mg/Ml Vial IV PUSH Q6H PRN Itching Famotidine 20 mg 04/17/22 21:00 04/18/22 09:09 Famotidine 20 Mg Tablet PO 20 mg Q12HR TIFFANY Administration Levothyroxine Sodium 112 mcg 04/18/22 06:30 04/18/22 05:57 Levothyroxine Sodium 112 Mcg Tablet PO 112 mcg DAILY@0630 [facility] Administration Meloxicam 7.5 mg 04/18/22 08:00 04/18/22 09:10 Meloxicam 7.5 Mg Tablet PO 7.5 mg DAILY@0800 [facility] Administration Morphine Sulfate 2 mg 04/17/22 12:50 Morphine Sulfate (*Crx) 2 Mg/Ml Inj IV PUSH Q4H PRN Pain Rated 7-10 Naloxone HCl 0.1 mg 04/17/22 12:50 Naloxone Hcl 0.4 Mg/Ml Vial IV PUSH Q2M PRN Opiate Reversal Olmesartan 10 mg 04/18/22 09:00 04/18/22 09:09 Olmesartan Medoxomil 10 Mg Tablet PO 10 mg QAM TIFFANY Administration Ondansetron HCl 4 mg 04/17/22 12:50 04/18/22 05:55 Ondansetron Inj 4 Mg/2 Ml Vial IV PUSH 4 mg Q4H PRN Administration Nausea And Vomiting Oxycodone HCl 5 mg 04/17/22 12:50 Oxycodone Hcl (*Crx) 5 Mg Tab Ir
--- NOTE | 2022-04-18 11:48 | PM.DS ---
DS: Admitting Diagnosis Discharge Date 04/18 Admitting Diagnosis Right knee DJD DS: Discharge Diagnosis Discharge Diagnosis Plan 76-year-old female underwent right total knee arthroplasty on 04/17. Underwent the procedure without complications. Postoperatively she has been afebrile signs are stable. Neurovascular she is intact. She did have some nausea evening of surgery. She had 1 bout of emesis the next morning following breakfast. This is improved. Pain is well controlled with oxycodone 2.5 mg. She is also on meloxicam 7.5 mg daily. She is on scheduled Tylenol as well. Patient is on Eliquis for DVT prophylaxis. She is also on Senokot MiraLax. She is also going home with Keflex for 12 days. Patient was walking with physical therapy postop day 1 and doing well. Plan of discharge 04/18. Patient was advised keep the leg elevated at home prevent swelling but she should do her exercise on a regular basis. She has outpatient therapy starting next Sunday. Patient was also advised to not sit in the joint looking down within 30 minutes of time 3 times a day. Her dressing over the knee is dry intact. Patient was advised any questions or concerns she office otherwise we will see her her appointment date. DS: Summary Hospital Course Hospital Course: Stable Time Spent with Patient Time attestation: Total time spent providing and/or coordinating discharge services: DS: Data Data Completed and Pending Labs on day of discharge: Labs from last 24 hours 04/18/22 04/18/22 05:03 05:03 WBC 16.3 H RBC 3.29 L Hgb 10.0 L D Hct 29.7 L MCV 90.3 MCH 30.4 MCHC 33.7 RDW 13.7 Plt Count 276 MPV 9.8 Immature Gran % (Auto) 0.4 Neut % (Auto) 80.7 H Lymph % (Auto) 9.2 L [place] % (Auto) 9.6 H Eos % (Auto) 0.0 Baso % (Auto) 0.1 L Lymph # (Auto) 1.50 [place] # (Auto) 1.6 H Eos # (Auto) 0.0 Baso # (Auto) 0.0 Abs Immat Gran (auto) 0.06 H Absolute Neuts (auto) 13.1 H Absolute Nucleated RBC 0.0 Nucleated RBC % 0.0 Sodium 134 L Potassium 4.1 Chloride 106 Carbon Dioxide 24 Anion Gap 4 L BUN 17 Creatinine 1.00 Estim Creat Clear Calc 44 Estimated GFR 54 L Glucose 114 H Calcium 7.8 L Discharge Plan Discharge Patient Disposition: Home, Self-Care Discharge Instructions: RENE DUTTA M.D [facility], [place] [address] [place] [address] POST-OPERATIVE DISCHARGE INSTRUCTIONS TOTAL KNEE ARTHROPLASTY 1. When resting, lie on back with leg elevated above heart to minimize swelling. Significant swelling could indicate a blood clot and if this occurs call the office (or go to the ER) to have a venous ultrasound. 2. Do exercise 5 times a day. 3. Do not sit with leg down except for meals. Limit sitting in the chair with leg pain down to 30 minutes at a time 3 times a day. 4. Wound Care: Nursing will give additional dressings at discharge. Patient to change dressing at home 1 week from surgery, then maintain until seen in office. 5. May shower with dressing in place. Patient Instructions: Apixaban (By mouth), Pain Management (DC) Follow-up/Referrals: Rene Dutta MD [Physician] - Keep Reg. Scheduled Appt. Discharge Medications: New polyethylene glycol 3350 [Miralax] 17 gram Powder In Packet 17 g PO QAM Qty: 30 0RF sennosides-docusate sodium [Senokot-S] 8.6-50 mg Tablet 2 tab PO BID Qty: 60 0RF acetaminophen 500 mg Tablet 1,000 mg PO Q6H Qty: 90 0RF cephalexin 500 mg Capsule 500 mg PO Q12HR Qty: 48 0RF oxycodone 5 mg Tablet 5 mg PO Q4HR Qty: 30 0RF Rx Instructions: Take half tab q.4 hours for pain Eliquis 2.5 mg Tablet 2.5 mg PO Q12HR Qty: 27 0RF meloxicam 7.5 mg tablet 7.5 mg PO DAILY Qty: 30 0RF Continued omeprazole 20 mg capsule,delayed release(DR/EC) 20 mg PO QAM Rx Instructions: with meal everyday diazepam
== END 2022-04-18 13:30 | disposition home or self-care (01) ==
LOC: ANHSURGERY 06:14 → ANH2MED 12:52
PROVIDERS: Physician Assistant Surgical; PCP Student in an Organized Health Care Education/Training Program; Visit Provider Orthopaedic Surgery
PROC: (CPT 27447; principal; 2022-04-17 07:30)
DX: M17.11 Unilateral primary osteoarthritis, right knee (principal); I10 Essential (primary) hypertension; E03.9 Hypothyroidism, unspecified; Z87.891 Personal history of nicotine dependence; E66.9 Obesity, unspecified; Z68.32 Body mass index [BMI] 32.0-32.9, adult; Z79.899 Other long term (current) drug therapy
CPT/HCPCS: 27447; 36415; 73560; 80048; 85025; 86850; 86900; 86901; 87086; 97110; 97116; 97161; 97165; 97530; A9270; C1713; C1770; C1776; J0171; J0690; J1100; J1170; J1200; J2270; J2405; J2704; J2710; J2765; J2795; J3010; J3370; J7030; J7120

== ENCOUNTER 2022-04-21 14:26 | Outpatient (CLI) | payer MEDICARE, SELFPAY ==
--- NOTE | ~2022-04-21 | US_ITS ---
EXAMINATION: US venous doppler [facility] DATE: 04/21/2022 15:15 INDICATION: Right lower limb swelling. TECHNIQUE: Grayscale ultrasound images without and with compression and Doppler ultrasound images of the bilateral lower extremity veins were obtained. COMPARISON: Ultrasound 01/13/2022 FINDINGS: The visualized portions of right common femoral vein, profunda (deep) femoral vein, femoral vein, pop liteal vein, peroneal veins, posterior tibial veins, and greater saphenous vein outflow are patent. The visualized portions of left common femoral vein, profunda femoral vein, femoral vein, popliteal v ein, peroneal veins, posterior tibial veins, and greater saphenous vein outflow are patent. IMPRESSION: 1. No deep venous thrombosis. Reviewed, dictated and finalized at location A.
== END 2022-04-21 14:27 | disposition home or self-care (01) ==
PROVIDERS: PCP Student in an Organized Health Care Education/Training Program; Visit Provider Physician Assistant Surgical
DX: R60.0 Localized edema (principal)
CPT/HCPCS: 93970

== ENCOUNTER 2022-08-23 09:40 | Outpatient (CLI) | payer MEDICARE, SELFPAY ==
--- NOTE | 2022-08-23 11:00 | NEURO_ITS ---
Impression: # History of bilateral hand paresthesia. # Mild bilateral Carpal Tunnel Syndrome. # Normal needle/EMG exam. # Clinical correlation recommended. Motor Nerve Conduction Upper Extremities Median Nerve Conduction Velocity (m/sec) Terminal Latency (msec) Response Voltage(mV) Elbow-Wrist Wrist Elbow Wrist Right 51 4.1 3 7 Left 54 4.3 3 4 Ulnar Nerve Conduction Velocity (m/sec) Terminal Latency (msec) Response Voltage(mV) Above Elbow Below Elbow Wrist Above Elbow Below Elbow Wrist Right 60 61 2.6 6 7 7 Left 60 60 2.5 5 5 7 F-Wave Latency Median (ms) Ulnar (ms) Right 27.6 27.0 Left 28.3 28.2 Sensory Nerve Conduction Upper Extremities Median Nerve Stimulation Terminal Latency (msec) Wrist/Digit Response Voltage (uV) Wrist Right 3.9/4.1 17/23 Left 4.0/4.7 27/24 Ulnar Nerve Stimulation Terminal Latency (msec) Wrist/Digit Response Voltage (uV) Wrist Right 2.9 26 Left 2.9 43 Radial Nerve Terminal Latency (msec) Response Voltage(mV) Right 1.9 25 Left 1.9 21 Left Right Muscles Examined Fibrillation Fasciculation Scarcity Voltage Duration Left Right Left Right Left Right Left Right Left Right Deltoid Biceps X X Brachioradialis Triceps X X Pronator Teres X X Ext Indicis X X Ext Digitorum X X Abd Poll Brev X X 1st Dorsal Interosseus Paraspinals MTDD
== END 2022-08-23 09:41 | disposition home or self-care (01) ==
PROVIDERS: PCP Student in an Organized Health Care Education/Training Program; Visit Provider Psychiatry & Neurology Neurology
DX: G56.03 Carpal tunnel syndrome, bilateral upper limbs (principal)
CPT/HCPCS: 95886; 95911

== ENCOUNTER 2022-09-06 07:57 | Outpatient (CLI) | payer MEDICARE, SELFPAY ==
[2022-09-06 09:09] LABS: Albumin Level 4.3 g/dL (3.5-5.1); Anion Gap 6 mmol/L (8-16); Blood Urea Nitrogen 25 mg/dL (7-17); Calcium 9.2 mg/dL (8.4-10.2); Carbon Dioxide 27 mmol/L (22-30); Chloride 102 mmol/L (98-107); Estimated Glomerular Filt Rate 44; Glucose 99 mg/dL (65-110); Phosphorus 3.9 mg/dL (2.5-4.5); Potassium 4.5 mmol/L (3.4-5.0); Sodium 135 mmol/L (137-145)
[2022-09-06 09:44] LABS: Creatinine Urine 110.1 mg/dL; Total Protein Urine Random 6 mg/dL; Ur Ttl Prot Creatinine Ratio 0.05 mg/mg (0-0.20)
== END 2022-09-06 07:58 | disposition home or self-care (01) ==
PROVIDERS: PCP Student in an Organized Health Care Education/Training Program; Visit Provider Internal Medicine Nephrology
DX: I12.9 Hypertensive chronic kidney disease with stage 1 through stage 4 chronic kidney disease, or unspecified chronic kidney disease (principal); N18.32 Chronic kidney disease, stage 3b
CPT/HCPCS: 36415; 80069; 82570; 84156

== ENCOUNTER 2022-11-22 01:42 | Day surgery (SDC) | payer MEDICARE, SELFPAY ==
[2022-10-16 15:33] VITALS: BMI 32.0
--- NOTE | 2022-10-16 15:38 | PC.NURSE ---
Report to the Outpatient Waiting Room, entrance under the green pavilion located off [facility], at time ___0800____ on date __10/25/22 . Planned Procedure Time: ___1000 . Time changes happen often and if your time is changed the preop area will call you the afternoon before. - You and your visitor will be asked to self-screen and do not enter if you have any COVID symptoms. - Only one visitor is requested with a max of two and NO children visitors are allowed at this time. - The patient visitor may be requested to leave or wait in car when not with patient due to distancing restrictions. - A mask is optional within the hospital. Patients may have clear liquids (water, carbonated beverages, clear teas, apple juice) until 3 hours prior to surgery (0700 AM) with a maximum of 20 ounces. - No food from midnight until time of surgery - Infants may have breast milk until 4 hours before surgery, infant formula 6 hours prior to surgery. - Children will be allowed to drink immediately following surgery. If applicable, please bring a bottle or sippy cup to assist with drinking. Juice, water, soda, and popsicles are readily available. For infants on formula, please bring formula the day of surgery. Pacifiers are allowed. Take the following medications with a SIP of water the morning of surgery: _LEVOTHYROXINE, TYLENOL & DIAZEPAM IF NEEDED Medications to discontinue per physician PIROXICAM PER DR. CASTRO'S INSTRUCTIONS Date to take last dose Please no make-up, nail italian, hairspray, perfume, deodorant, or body powder the day of surgery. No jewelry (including any body piercings) or valuables the day of surgery, leave them at home. Please take a shower or bath the night before, or the morning of, surgery with an antibacterial soap. Wear comfortable, loose fitting clothing. Children are encouraged to wear pajamas. - Jewelry must be removed prior to entering the operating room. Rings and piercings that are not removed may be cut off. - The hospital will not accept responsibility for valuables. - Please leave all valuables, including medications, at home the day of surgery. If you are going home after surgery, a licensed distribution driver must drive you home. - NO public transportation without another adult if you receive anesthesia. - We recommend that an adult stay with you for 24 hours following discharge. - We also recommend that you do not drive, make important decision, drink alcoholic beverages, or take any drugs that were not prescribed by your health care provider for at least 24 hours after your discharge time. For Pediatric surgeries, we recommend two adults accompany the child home. Follow any additional instructions given to you from your surgeon. If you or anyone in your household have experienced Covid symptoms in the past week, please notify your surgeon or the nurse liaison at the phone number below for possible testing. Telephone instructions given to ___PT and asked if any additional questions and then verbalized understanding. Patient advised to call surgeon office or pre surgery nurse liaison [phone] if any additional questions.
--- NOTE | 2022-10-17 09:44 | PC.NURSE ---
Report to the Outpatient Waiting Room, entrance under the green pavilion located off [facility], at time ___09____ on date __10/25/22 . Planned Procedure Time: __1000 . Time changes happen often and if your time is changed the preop area will call you the afternoon before. - You and your visitor will be asked to self-screen and do not enter if you have any COVID symptoms. - Only one visitor is requested with a max of two and NO children visitors are allowed at this time. - The patient visitor may be requested to leave or wait in car when not with patient due to distancing restrictions. - A mask is optional within the hospital. -MAY HAVE LIGHT BREAKFAST Take the following medications with a SIP of water the morning of surgery: REGULAR HOME MEDS Medications to discontinue per physician __PIROXICAM PER DR. CASTRO'S INSTRUCTIONS___ Date to take last dose Please no make-up, nail lithuanian, hairspray, perfume, deodorant, or body powder the day of surgery. No jewelry (including any body piercings) or valuables the day of surgery, leave them at home. Please take a shower or bath the night before, or the morning of, surgery with an antibacterial soap. Wear comfortable, loose fitting clothing. Children are encouraged to wear pajamas. - Jewelry must be removed prior to entering the operating room. Rings and piercings that are not removed may be cut off. - The hospital will not accept responsibility for valuables. - Please leave all valuables, including medications, at home the day of surgery. -MAY DRIVE, BUT HAVING A DENTAL ASSOCIATE IS ENCOURAGED Follow any additional instructions given to you from your surgeon. If you or anyone in your household have experienced Covid symptoms in the past week, please notify your surgeon or the nurse liaison at the phone number below for possible testing. Telephone instructions given to __PATIENT__and asked if any additional questions and then verbalized understanding. Patient advised to call surgeon office or pre surgery nurse liaison [phone] if any additional questions.
--- NOTE | 2022-10-19 13:15 | PM.IMHP ---
H&P: HPI History of Present Illness Date/Time: 10/19/22 13:15 Chief Complaint: the patient is a 77-year-old female who presents with chronic history of numbness and tingling in the median nerve distribution left hand. This is chronic in nature getting worse with time she states her hand frequently falls asleep feels numb and tingling almost all the time. The patient has tried bracing activity modification and anti-inflammatories without significant relief. Patient underwent an EMG nerve conduction velocity test which shows moderately severe carpal tunnel syndrome left worse than right. Patient's symptoms are more significant than EMG study she has discussed treatment options in detail Dr. Pro has failed conservative measures she would now like to proceed with left carpal tunnel release. Review of Systems Review of Systems: Ten point review of systems otherwise negative [facility] Past Medical History Medical History Arthritis Hypertension Hypothyroid Surgical History Surgical History History of left hip replacement Family History Family History Mother Heart disease Hypertension Father Hypertension Social History Social History Social History: patient currently lives at home by herself with her dog that she has had for the last 14 years. She stated that she has 2 kids 2 daughters 4 grandchildren 1 great grandchildren. Patient stated that she was however he of kidney cancer in 2011. Patient wishes to be a full code at this time and she likes her daughter Tonia to be her surrogate Smoking packs per day: 1 Smoking cigarettes per day: 20.0 Smoking status: Former smoker Tobacco type: cigarettes Second hand tobacco smoke exposure: No Smoking end date: 10/01/77 Additional smoking assessment comments: PT UNABLE TO REALL # OF YRS SMOKED Alcohol intake: never Substance use: never Substance use type: does not use Living arrangements: alone Additional living arrangements comments: DAUGHTER YORDY TO STAY WITH PT POST OP Additional occupation/education comments: [employer] Gender identity (if verbalized by the patient): Female Sexual Orientation (if Verbalized by the Patient): Straight or Heterosexual Spiritual care concerns: No Agree to blood products: Yes Meds Home Medications and Allergies Home Medications Medication Instructions Recorded Confirmed Type diazepam 5 mg tablet (Valium) 5 mg PO TID PRN Anxiety 04/22/21 10/16/22 History omeprazole 20 mg capsule,delayed 20 mg PO QAM 04/22/21 10/16/22 History release cholecalciferol (vitamin D3) 250 250 mcg PO QAM 03/30/22 10/16/22 History mcg (10,000 unit) tablet olmesartan 20 mg tablet 10 mg QAM 03/30/22 10/16/22 History levothyroxine 112 mcg tablet 1 tablet PO QAM 04/17/22 10/16/22 History acetaminophen 500 mg tablet 1,000 mg PO Q6H #90 tabs 04/18/22 10/16/22 Rx piroxicam 10 mg capsule 10 mg PO BID #60 caps 09/05/22 10/16/22 Rx prednisone 10 mg tablet See Rx Instructions .Route .COMPLEX 10/17/22 10/17/22 History Allergies Allergy/AdvReac Type Severity Reaction Status Date / Time tramadol Allergy Seizure Verified 10/16/22 15:27 quinidine AdvReac Severe ??REACTION--ADVISED Verified 10/16/22 15:[address] SMITH NEVER TO TAKE codeine AdvReac Intermediate N/V Verified 10/16/22 15:27 Influenza Virus Vaccines AdvReac Intermediate RASH Verified 10/16/22 15:27 procaine AdvReac Intermediate DIAPHORETIC Verified 10/16/22 15:27 /N/V Penicillins AdvReac Mild RASH ON Verified 10/16/22 15:27 CHEST propoxyphene AdvReac Mild N/V Verified 10/16/22 15:27 Exam Narrative: on exam the patient is noted to be well-developed well-nourished female no acute distre
--- NOTE | 2022-10-27 15:07 | PC.NURSE ---
Report to the Outpatient Waiting Room, entrance under the green pavilion located off [facility], at time _0900_ on date _11/08/22_. Planned Procedure Time: _1000_. Time changes happen often and if your time is changed the preop area will call you the afternoon before. - You and your visitor will be asked to self-screen and do not enter if you have any COVID symptoms. - Only one visitor is requested with a max of two and NO children visitors are allowed at this time. - The patient visitor may be requested to leave or wait in car when not with patient due to distancing restrictions. - A mask is optional within the hospital at this time. -MAY HAVE A LIGHT BREAKFAST Take the following medications with a SIP of water the morning of surgery: _REGULAR HOME MEDS_ DO NOT STOP ANY OF YOUR OTHER PRESCRIPTION MEDICATIONS PRIOR TO SURGERY ?EXCEPT THE FOLLOWING Medications to discontinue per physician __PIROXICAM PER DR. CASTRO'S INSTRUCTIONS__ Date to take last dose Please no make-up, nail welsh, hairspray, perfume, deodorant, or body powder the day of surgery. No jewelry (including any body piercings) or valuables the day of surgery, leave them at home. Please take a shower or bath the night before, or the morning of, surgery with an antibacterial soap. Wear comfortable, loose fitting clothing. - Jewelry must be removed prior to entering the operating room. Rings and piercings that are not removed may be cut off. - The hospital will not accept responsibility for valuables. - Please leave all valuables, including medications, at home the day of surgery. -MAY DRIVE TO/FROM HOSPITAL, BUT HAVING A STORM SASH MAKER IS ENCOURAGED Follow any additional instructions given to you from your surgeon. If you or anyone in your household have experienced Covid symptoms in the past week, please notify your surgeon or the nurse liaison at the phone number below for possible testing. Telephone instructions given to __PATIENT__and asked if any additional questions and then verbalized understanding. Patient advised to call surgeon office or pre surgery nurse liaison [phone] if any additional questions.
--- NOTE | 2022-11-16 12:47 | PC.NURSE ---
PT STATES NO CHANGE IN HEALTH HX SINCE LAST INTERVIEW
--- NOTE | 2022-11-16 12:48 | PC.NURSE ---
Report to the Outpatient Waiting Room, entrance under the green pavilion located off [address], at time __1000 on date _11/22/22 . Planned Procedure Time: _1100 . Time changes happen often and if your time is changed the preop area will call you the afternoon before. - You and your visitor will be asked to self-screen and do not enter if you have any COVID symptoms. - Only one visitor is requested with a max of two and NO children visitors are allowed at this time. - The patient visitor may be requested to leave or wait in car when not with patient due to distancing restrictions. - A mask is optional within the hospital at this time. Patients may have clear liquids (water, carbonated beverages, clear teas, apple juice) until 3 hours prior to surgery with a maximum of 20 ounces. - No food from midnight until time of surgery - Infants may have breast milk until 4 hours before surgery, infant formula 6 hours prior to surgery. - Children will be allowed to drink immediately following surgery. If applicable, please bring a bottle or sippy cup to assist with drinking. Juice, water, soda, and popsicles are readily available. For infants on formula, please bring formula the day of surgery. Pacifiers are allowed. LIGHT BREAKFAST Take the following medications with a SIP of water the morning of surgery: ALL ROUTINE MORNING MEDS DO NOT STOP ANY OF YOUR OTHER PRESCRIPTION MEDICATIONS PRIOR TO SURGERY ?EXCEPT THE FOLLOWING Medications to discontinue per physician PIROXICAM PER DR CASTRO Date to take last dose Please no make-up, nail kenyan, hairspray, perfume, deodorant, or body powder the day of surgery. No jewelry (including any body piercings) or valuables the day of surgery, leave them at home. Please take a shower or bath the night before, or the morning of, surgery with an antibacterial soap. Wear comfortable, loose fitting clothing. Children are encouraged to wear pajamas. - Jewelry must be removed prior to entering the operating room. Rings and piercings that are not removed may be cut off. - The hospital will not accept responsibility for valuables. - Please leave all valuables, including medications, at home the day of surgery. If you are going home after surgery, a licensed local owner operator truck driver must drive you home. - NO public transportation without another adult if you receive anesthesia. - We recommend that an adult stay with you for 24 hours following discharge. - We also recommend that you do not drive, make important decision, drink alcoholic beverages, or take any drugs that were not prescribed by your health care provider for at least 24 hours after your discharge time. For Pediatric surgeries, we recommend two adults accompany the child home. Follow any additional instructions given to you from your surgeon. If you or anyone in your household have experienced Covid symptoms in the past week, please notify your surgeon or the nurse liaison at the phone number below for possible testing. Telephone instructions given to ___PATIENT and asked if any additional questions and then verbalized understanding. Patient advised to call surgeon office or pre surgery nurse liaison [phone] if any additional questions.
--- NOTE | 2022-11-22 06:54 | WPDHPUPDATE1 ---
History and Physical Update Update Date/Time: 11/22/22 06:54 History and Physical has been reviewed, including an updated exam of the patient. There are NO changes in the patient's condition. Risks, benefits, and alternatives have been discussed and questions answered. Patient agrees to proceed with procedure.
[2022-11-22 10:06] VITALS: BP 169/88; PULSE 95; RESP 20; TEMP 36.6; O2SAT 100
[2022-11-22] MEDS: ACETAMINOPHEN 500 MG TABLET 1000 MG PO (10:15)
[2022-11-22 10:29] VITALS: BP 178/88; PULSE 93; RESP 16; O2SAT 98
[2022-11-22 10:39] VITALS: BP 167/88; PULSE 91; RESP 16; O2SAT 98
[2022-11-22] MEDS: LIDOCAINE HCL 1% LOCAL INJ 20 ML VIAL INFILTRATE (10:45)
[2022-11-22 10:52] VITALS: BP 147/77; PULSE 83; RESP 16; O2SAT 99
--- NOTE | 2022-11-22 18:03 | W.PM.PROC2 ---
Procedure Note - Detailed Date of Procedure 11/22/22 Pre-op Diagnosis left carpal tunnel syndrome Post-op Diagnosis Same Procedure Performed [side] carpal tunnel release Surgeon Bulmaro Pro MD Anesthesia MAC Description of Procedure After sterile prep and drape, I injected the area of intended incision with 10ml of 1% lidocaine. A longitudinal incision was made in line with the ulnar boarder of the third finger. Disection carried down to the fascia, the fascia split and the carpal ligament identified. The carpal ligament was released and the flexor retinaculum was released as well. The nerve was noted to be red purple in color and in continuity. The wound was irrigated, hemostatis was obtained and closed with 3-0 prolene. Estimated Blood Loss 5 Drains No Packing No Pathology None sent Complications No immediate complications Condition Stable Disposition Same day
== END 2022-11-22 11:30 | disposition home or self-care (01) ==
PROVIDERS: PCP Student in an Organized Health Care Education/Training Program; Visit Provider Orthopaedic Surgery
PROC: (CPT 64721; principal; 2022-11-22 11:00)
DX: G56.02 Carpal tunnel syndrome, left upper limb (principal); I10 Essential (primary) hypertension; E03.9 Hypothyroidism, unspecified; M19.90 Unspecified osteoarthritis, unspecified site; Z87.891 Personal history of nicotine dependence
CPT/HCPCS: 64721; A9270

== ENCOUNTER 2022-12-24 08:47 | Outpatient (CLI) | payer MEDICARE, SELFPAY ==
--- NOTE | ~2022-12-24 | MR_ITS ---
MRI of the cervical spine Clinical History: Neck pain Technique: Axial T2-weighted and gradient images, and sagittal T1-weighted, T2-weighted, and STIR eddie ges were acquired. Findings: No acute fracture or subluxation identified in the cervical spine. There is fusion across t he C4-C5 and C5-C6 disc spaces. There is mild degenerative disc change at C3-C4 and C6-C7. No suspici ous bone marrow signal abnormality seen. At C2-C3, there is no disc bulge or herniation. No spinal canal stenosis, cord compression, or neural foraminal narrowing. At C3-C4, broad-based disc protrusion and ligamentum flavum hypertrophy result in moderate to severe spinal canal stenosis and cord compression. At C5-C6, there is no disc bulge or herniation. No spinal canal stenosis, cord compression, or neural foraminal narrowing. At C6-C7, there is no disc bulge or herniation. No spinal canal stenosis or cord compression. There i s probable bilateral neural foraminal narrowing with facet arthropathy, left worse than right. There is focal spinal cord edema at the C3-C4 level at the area of compression. Paravertebral soft ti ssues otherwise are unremarkable. Impression: Moderate to severe cord compression and spinal canal stenosis at C3-C4, with associated spinal cord e emily at this level. Compression is related to disc protrusion and ligamentum flavum hypertrophy. Prior fusion from C4 to C6. Reviewed, dictated and finalized at [facility]. Impression: Moderate to severe cord compression and spinal canal stenosis at C3-C4, with as sociated spinal cord edema at this level. Compression is related to disc protru sobeida and ligamentum flavum hypertrophy. Prior fusion from C4 to C6.
--- NOTE | ~2022-12-24 | MR_ITS ---
MRI of the lumbar spine Clinical History: Back pain Technique: Axial T2-weighted images, and sagittal T1-weighted, T2-weighted, and T2 fat-sat images wer e acquired. Findings: No fracture seen in the lumbar spine. 5 mm retrolisthesis of L1 over L2 noted. Minimal grad e 1 anterolisthesis of L4 over L5 noted. No focal or suspicious bone marrow signal abnormality identi fied. At L1-L2, disc bulge and facet arthropathy are present. There is no sue spinal canal stenosis. Ther e is severe bilateral neural foraminal narrowing. At L2-L3, there is minimal disc bulge with facet arthropathy. No spinal canal stenosis. There is mild right neural foraminal narrowing. Left neural foramen preserved. At L3-L4, disc bulge and facet arthropathy are present. No sue spinal canal stenosis. Neural forami na are preserved. At L4-L5, there is advanced facet arthropathy. No spinal canal stenosis or neural foraminal narrowing . At L5-S1, there is mild disc bulge with advanced facet arthropathy. No spinal canal stenosis or neura l foraminal narrowing. Paravertebral soft tissues are unremarkable. Impression: 5 mm retrolisthesis of L1 over L2. Minimal grade 1 anterolisthesis of L4 over L5. Severe bilateral neural foraminal narrowing at L1-L2. Mild right neural foraminal narrowing at L2-L3. Facet joint degenerative changes throughout the lumbar spine. Reviewed, dictated and finalized at [facility]. Impression: 5 mm retrolisthesis of L1 over L2. Minimal grade 1 anterolisthesis of L4 over L5. Severe bilateral neural foraminal narrowing at L1-L2. Mild right neural foraminal narrowing at L2-L3. Facet joint degenerative changes throughout the lumbar spine.
--- NOTE | ~2022-12-24 | MR_ITS ---
MRI of the thoracic spine Clinical History: Back pain Technique: Axial T2-weighted and gradient images, and sagittal T1-weighted, T2-weighted, and STIR eddie ges were acquired. Findings: Mild chronic compression deformity of the inferior endplate region of T12 is present, witho ut marrow edema. No other fracture or subluxation seen in the thoracic spine. No bone marrow signal a bnormality seen in the thoracic spine. There are several minimal disc bulges in the thoracic spine. No spinal canal stenosis, cord compressi on evident. No abnormal signal seen in the spinal cord. Vertebral soft tissues are unremarkable. Impression: Chronic compression deformity of T12. Minimal degenerative spondylosis, as above. Reviewed, dictated and finalized at location [facility]. Impression: Chronic compression deformity of T12. Minimal degenerative spondylosis, as above.
== END 2022-12-24 08:48 | disposition home or self-care (01) ==
PROVIDERS: PCP Student in an Organized Health Care Education/Training Program; Visit Provider Psychiatry & Neurology Neurology
DX: G95.9 Disease of spinal cord, unspecified (principal); Z98.1 Arthrodesis status
CPT/HCPCS: 72141; 72146; 72148

== ENCOUNTER 2023-01-25 11:54 | Outpatient (CLI) | payer MEDICARE, SELFPAY ==
--- NOTE | ~2023-01-25 | XR_ITS ---
Cervical Spine: AP, lateral, open-mouth views Clinical History: Pain Findings: The normal lordotic curve is maintained. There is fusion of the C4, C5, and C6 vertebral erich dies, with fusion across the associated C4-C5 and C5-C6 disc spaces. There is minimal grade 1 retroli sthesis of C3 over C4 with mild degenerative disc change at this level. There is probable mild degene rative disc change at C6-C7. There mild scattered facet joint degenerative changes in the cervical sp ine. Pre-vertebral soft tissues are unremarkable. Impression: Cervical fusion from C4 through C6, as detailed above. Additional mild degenerative changes, as above. Reviewed, dictated and finalized at location [facility]. Impression: Cervical fusion from C4 through C6, as detailed above. Additional mild degenerative changes, as above.
--- NOTE | ~2023-01-25 | CT_ITS ---
EXAMINATION: CT cervical spine wo con DATE: 01/25/2023 12:27 INDICATION: Cervical myelopathy. TECHNIQUE: Computed tomography (CT) of the cervical spine was performed without intravenous contrast. Automated exposure control and iterative reconstruction technique were employed. The dose-length pro duct was 412.92 mGy-cm. COMPARISON: Cervical spine MRI 12/24/2022, radiographs 01/25/2023 FINDINGS: Bone alignment is normal. There is mild chronic anterior wedging of C3 and C7 vertebral bod ies. There are changes of anterior fusion procedures at C4-C5 and C5-C6 with healed interbody bone gr aft. There is moderately decreased disc height at C2-C3 and C3-C4. The following disc levels are spec ifically discussed: C2-C3: There is no uncovertebral joint hypertrophy. There is mild right facet joint osteoarthritis. T here is ankylosis of left facet joint with mild hypertrophy. There is mild left neural foraminal sten osis. There is no central canal stenosis. C3-C4: There is severe bilateral uncovertebral joint osteoarthritis. There is severe bilateral facet joint osteoarthritis. There is mild bilateral neural foraminal stenosis. There is hypertrophy of the ligamentum flavum. There is severe central canal stenosis. C4-C5: There is no uncovertebral joint osteoarthritis. There is mild bilateral facet joint hypertroph y. There is no neural foraminal stenosis. There is no central canal stenosis. C5-C6: There is mild right and moderate left uncovertebral joint hypertrophy. There is mild bilateral facet joint hypertrophy. There is mild right and moderate left neural foraminal stenosis. There is n o central canal stenosis. C6-C7: There is ankylosis of the uncovertebral joints without hypertrophy. There is severe height fac et joint osteoarthritis. There is ankylosis of left facet joint with moderate hypertrophy. There is m ild bilateral neural foraminal stenosis. There is mild central canal stenosis. C7-T1: There is no uncovertebral joint osteoarthritis. There is severe bilateral facet joint osteoart hritis. There is mild bilateral neural foraminal stenosis. There is no central canal stenosis. IMPRESSION: 1. Severe central canal stenosis at C3-C4. Moderate spondylosis at other levels. 2. Interbody fusion and/or facet joint ankylosis at C2-C3 and from C4 to C7. Reviewed, dictated and finalized at location [facility]. IMPRESSION: 1. Severe central canal stenosis at C3-C4. Moderate spondylosis at other levels . 2. Interbody fusion and/or facet joint ankylosis at C2-C3 and from C4 to C7.
== END 2023-01-25 11:55 | disposition home or self-care (01) ==
PROVIDERS: PCP Student in an Organized Health Care Education/Training Program; Visit Provider Neurological Surgery
DX: G95.9 Disease of spinal cord, unspecified (principal); M48.02 Spinal stenosis, cervical region; M50.30 Other cervical disc degeneration, unspecified cervical region; Z98.1 Arthrodesis status
CPT/HCPCS: 72040; 72125

== ENCOUNTER 2023-02-22 11:31 | Outpatient (CLI) | payer MEDICARE, SELFPAY ==
[2023-02-22 12:07] LABS: Hematocrit 35.2 % (37.0-47.0); Hemoglobin 11.2 g/dL (12.0-15.0); Mean Corpuscular HGB Conc 31.8 g/dl (32-36); Mean Corpuscular Hemoglobin 26.4 pg (26-34); Mean Corpuscular Volume 82.8 fl (80-100); Platelet Count Result 426 k/mm3 (150-375); Red Blood Count 4.25 M/mm3 (4.2-5.4); Red Cell Distribution Width 17.2 % (11.5-14.5); White Blood Count 9.8 K/mm3 (4.5-10.0)
[2023-02-22 12:11] LABS: Appearance Urine Clear (Clear); Bacteria Urine Rare /hpf; Bilirubin Urine Negative (Negative); Blood Urine Negative (Negative); Color Urine Yellow (Yellow); Glucose Urine UA Negative (Negative); Ketones Urine Trace mg/dL (Negative); Leukocyte Esterase Ur 2+ LEU/UL (Negative); Nitrate Urine Negative (Negative); Protein Urine Negative (Negative); RBC Urine 0-2 /hpf (0-2); Specific Grav Ur 1.017 (1.001-1.035); Squamous Epithelial Cell Urine Occasional /hpf (Few); Urobilinogen Urine 0.2 mg/dL (<2.0); WBC Urine 21-50 /hpf
[2023-02-22 12:17] LABS: Add Urine Microscopic? YES; Prothrombin Time 13.3 Seconds (11.1-14.7)
[2023-02-22 12:18] LABS: Partial Thromboplastin Time 29.4 SECONDS (22.3-36.8)
[2023-02-22 12:30] LABS: Anion Gap 6 mmol/L (8-16); Blood Urea Nitrogen 27 mg/dL (7-17); Calcium 9.1 mg/dL (8.4-10.2); Carbon Dioxide 27 mmol/L (22-30); Chloride 102 mmol/L (98-107); Estimated Glomerular Filt Rate 44; Glucose 99 mg/dL (65-110); Potassium 4.7 mmol/L (3.4-5.0); Sodium 135 mmol/L (137-145)
== END 2023-02-22 11:32 | disposition home or self-care (01) ==
LOC: ANHSURGERY 11:38
PROVIDERS: PCP Student in an Organized Health Care Education/Training Program; Visit Provider Neurological Surgery
DX: M48.02 Spinal stenosis, cervical region (principal); M50.30 Other cervical disc degeneration, unspecified cervical region
CPT/HCPCS: 36415; 80048; 81001; 85027; 85610; 85730; 86850; 86900; 86901; 87086; 87147; 87181; 87186

== ENCOUNTER 2023-02-28 11:02 | Inpatient (IN) | payer MEDICARE, SELFPAY ==
--- NOTE | 2023-02-16 15:26 | PC.NURSE ---
Report to the Outpatient Waiting Room, entrance under the green pavilion located off [facility], at time __0600 on date ___02/28/23____. Planned Procedure Time: __729 . Time changes happen often and if your time is changed the preop area will call you the afternoon before. - You and your visitor will be asked to self-screen and do not enter if you have any COVID symptoms. - A mask is optional within the hospital at this time. Patients may have clear liquids (water, carbonated beverages, clear teas, apple juice) until 3 hours prior to surgery with a maximum of 20 ounces. - No food from midnight until time of surgery - Infants may have breast milk until 4 hours before surgery, infant formula 6 hours prior to surgery. - Children will be allowed to drink immediately following surgery. If applicable, please bring a bottle or sippy cup to assist with drinking. Juice, water, soda, and popsicles are readily available. For infants on formula, please bring formula the day of surgery. Pacifiers are allowed. Take the following medications with a SIP of water the morning of surgery: ____LEVOTHYROXINE DO NOT STOP ANY OF YOUR OTHER PRESCRIPTION MEDICATIONS PRIOR TO SURGERY ?EXCEPT THE FOLLOWING Medications to discontinue per physician VITAMIN D3 3 DAYS PRE OP. LAST DOSE 02/25/[address] GUERRERO Please no make-up, nail armenian, hairspray, perfume, deodorant, or body powder the day of surgery. No jewelry (including any body piercings) or valuables the day of surgery, leave them at home. Please take a shower or bath the night before, or the morning of, surgery with an antibacterial soap. Wear comfortable, loose fitting clothing. Children are encouraged to wear pajamas. - Jewelry must be removed prior to entering the operating room. Rings and piercings that are not removed may be cut off. - The hospital will not accept responsibility for valuables. - Please leave all valuables, including medications, at home the day of surgery. If you are going home after surgery, a licensed helper driver must drive you home. - NO public transportation without another adult if you receive anesthesia. - We recommend that an adult stay with you for 24 hours following discharge. - We also recommend that you do not drive, make important decision, drink alcoholic beverages, or take any drugs that were not prescribed by your health care provider for at least 24 hours after your discharge time. For Pediatric surgeries, we recommend two adults accompany the child home. Follow any additional instructions given to you from your surgeon. If you or anyone in your household have experienced Covid symptoms in the past week, please notify your surgeon or the nurse liaison at the phone number below for possible testing. Telephone instructions given to _PATIENT and asked if any additional questions and then verbalized understanding. Patient advised to call surgeon office or pre surgery nurse liaison [phone] if any additional questions.
[2023-02-16 15:37] VITALS: BMI 33.1
[2023-02-28] VITALS (18 sets, daily range): BP systolic 113–180; BP diastolic 60–97; PULSE 63–114; RESP 16–22; TEMP 36–37.1; O2SAT 88–100
--- NOTE | ~2023-02-28 | XR_ITS ---
EXAMINATION: XR fluoroscopy no charge DATE: 02/28/2023 11:04 INDICATION: C3 laminectomy and discectomy TECHNIQUE: AP and lateral fluoroscopic images of the cervical spine were obtained during procedure pe rformed by Dr. Fajardo. Radiologist was not present for the imaging or procedure. The amount of fluor oscopy time used during this procedure was 0.2 minutes. COMPARISON: None. FINDINGS: C3 laminectomy. C3-C4 discectomy with interbody fusion device and anterior plate and screw fixation. Endotracheal tube extends into the upper thoracic trachea and beyond the inferior margin of the field -of-view. IMPRESSION: 1. Fluoroscopy utilized during a C3 laminectomy and C3-C4 instrumented anterior spinal fusion. See pr ocedure note for further detail. Reviewed, dictated and finalized at location B. IMPRESSION: 1. Fluoroscopy utilized during a C3 laminectomy and C3-C4 instrumented anterior spinal fusion. See procedure note for further detail.
--- NOTE | 2023-02-28 06:45 | WPDANESEPPF ---
Anes - Initial Pre Proc Eval Procedure: Operation Date: 02/28/23 07:30 Proposed Procedures p C3 Laminectomy, C3-4 Cervical Discectomy with Fusion - Nessa Fajardo MD Date/Time: 02/28/23 06:45 Surgeon: Nessa Fajardo MD Pre Op Diagnosis: cervical myopathy, prev fusion Patient Data Age: 77 Gender: F Height: 1.61 m Weight: 86.2 kg Allergies Allergy/AdvReac Type Severity Reaction Status Date / Time Influenza Virus Vaccines Allergy Intermediate RASH Verified 02/16/23 15:16 Penicillins Allergy Mild RASH ON Verified 02/16/23 15:16 CHEST tramadol Allergy Seizure Verified 02/16/23 15:16 quinidine AdvReac Severe ??REACTION--ADVISED Verified 02/16/23 15:[address] SMITH NEVER TO TAKE codeine AdvReac Intermediate N/V Verified 02/16/23 15:16 procaine AdvReac Intermediate DIAPHORETIC Verified 02/16/23 15:16 /N/V propoxyphene AdvReac Mild N/V Verified 02/16/23 15:16 Home Medications Medication Instructions Recorded Confirmed Type diazepam 5 mg tablet (Valium) 5 mg PO TID PRN Anxiety 04/22/21 02/16/23 History omeprazole 20 mg capsule,delayed 20 mg PO QAM 04/22/21 02/16/23 History release cholecalciferol (vitamin D3) 250 250 mcg PO QAM 03/30/22 02/16/23 History mcg (10,000 unit) tablet levothyroxine 112 mcg tablet 1 tablet PO QAM 04/17/22 02/16/23 History piroxicam 10 mg capsule 10 mg PO BID #180 caps 11/22/22 02/16/23 Rx acetaminophen 500 mg tablet 1,000 mg PO Q6H PRN Pain 02/16/23 02/16/23 History olmesartan 20 mg tablet 10 mg PO DAILY 02/16/23 02/16/23 History Patient hx anesthesia problems: post op nausea/vomiting Family hx anesthesia problems: none Results Review: All pre-operative results and documents have been reviewed as part of the pre-operative evaluation. [facility] Past Medical History Medical History Arthritis Hypertension Hypothyroid Surgical History Surgical History History of left hip replacement Hx of hand surgery (~11/2022) Hx of right knee surgery (~03/2022) Family History Family History Mother Heart disease Hypertension Father Hypertension Social History Social History Social History: patient currently lives at home by herself with her dog that she has had for the last 14 years. She stated that she has 2 kids 2 daughters 4 grandchildren 1 great grandchildren. Patient stated that she was however he of kidney cancer in 2011. Patient wishes to be a full code at this time and she likes her daughter Tonia to be her surrogate Smoking packs per day: 1 Smoking cigarettes per day: 20.0 Years smoked: 5 Smoking pack-years: 5.00 Smoking status: Former smoker Tobacco type: cigarettes Second hand tobacco smoke exposure: No Smoking end date: 10/01/77 Additional smoking assessment comments: PT UNABLE TO REALL # OF YRS SMOKED Alcohol intake: never Substance use: never Substance use type: does not use Lack of Transportation: No Lack of Food: Never True Current Housing: I Have Housing Concerned About Future Housing: No Difficulty Paying Gas/Electric Bills: No Difficulty Paying for Meds: No Currently Unemployed: No Education: High School Diploma/GED Difficulty w/ Childcare or Family Care: No Living arrangements: alone Additional living arrangements comments: DAUGHTER YORDY TO STAY WITH PT POST OP Occupation/Education: retired Additional occupation/education comments: [employer] Gender identity (if verbalized by the patient): Female Sexual Orientation (if Verbalized by the Patient): Straight or Heterosexual Spiritual care concerns: No Agree to blood products: Yes Anes - Eval Final PreProcedure Day of Procedure 02/28/23 06:45 Patient
[2023-02-28] MEDS: LACTATED RINGERS 1,000 ML 30 ML IV CONT ×2 (07:00→10:57)
--- NOTE | 2023-02-28 07:10 | WPDHPUPDATE1 ---
History and Physical Update Update Date/Time: 02/28/23 07:10 History and Physical has been reviewed, including an updated exam of the patient. There are NO changes in the patient's condition. Risks, benefits, and alternatives have been discussed and questions answered. Patient agrees to proceed with procedure. To OR today for C3-4 laminectomies, ACDF C3-4
--- NOTE | 2023-02-28 07:11 | PM.IMHP ---
H&P: HPI History of Present Illness Date/Time: 02/28/23 07:11 Chief Complaint: Ms. Patterson is a 77-year-old female with history of previous ACDF C4-6 who was referred by Dr. Claire for evaluation myelopathy.? The patient originally had surgery in [address] Alexis at for what sounds like radicular pain to the shoulders.? Surgery went well without complications, and she had significant improvement in her symptoms following surgery.? This past July, she started noticing some difficulty with her balance for which she has mostly been using a walker and at times a cane. ? She reports pain between her shoulder and has developed numbness in her hands, primarily in her thumbs and index fingers and has noticed changes in her handwriting. She actually had a left-sided carpal tunnel release about 6 weeks ago on her left hand which made no improvement.? She feels generalized weakness in her arms and legs but denies any bowel or bladder changes.? She saw Dr. Claire last month who noticed signs of myelopathy on her physical exam and sent her for an MRI cervical spine.? Of note, she is otherwise healthy and only takes Tylenol and a prescription NSAID for pain. Review of Systems Review of Systems: All systems reviewed & are unremarkable except as noted in HPI and below PMFSH Past Medical History Medical History Arthritis Hypertension Hypothyroid Surgical History Surgical History History of left hip replacement Hx of hand surgery (~11/2022) Hx of right knee surgery (~03/2022) Family History Family History Mother Heart disease Hypertension Father Hypertension Social History Social History Social History: patient currently lives at home by herself with her dog that she has had for the last 14 years. She stated that she has 2 kids 2 daughters 4 grandchildren 1 great grandchildren. Patient stated that she was however he of kidney cancer in 2011. Patient wishes to be a full code at this time and she likes her daughter Tonia to be her surrogate Smoking packs per day: 1 Smoking cigarettes per day: 20.0 Years smoked: 5 Smoking pack-years: 5.00 Smoking status: Former smoker Tobacco type: cigarettes Second hand tobacco smoke exposure: No Smoking end date: 10/01/77 Additional smoking assessment comments: PT UNABLE TO REALL # OF YRS SMOKED Alcohol intake: never Substance use: never Substance use type: does not use Lack of Transportation: No Lack of Food: Never True Current Housing: I Have Housing Concerned About Future Housing: No Difficulty Paying Gas/Electric Bills: No Difficulty Paying for Meds: No Currently Unemployed: No Education: High School Diploma/GED Difficulty w/ Childcare or Family Care: No Living arrangements: alone Additional living arrangements comments: DAUGHTER YORDY TO STAY WITH PT POST OP Occupation/Education: retired Additional occupation/education comments: [employer] Gender identity (if verbalized by the patient): Female Sexual Orientation (if Verbalized by the Patient): Straight or Heterosexual Spiritual care concerns: No Agree to blood products: Yes Meds Home Medications and Allergies Home Medications Medication Instructions Recorded Confirmed Type diazepam 5 mg tablet (Valium) 5 mg PO TID PRN Anxiety 04/22/21 02/28/23 History omeprazole 20 mg capsule,delayed 20 mg PO QAM 04/22/21 02/28/23 History release cholecalciferol (vitamin D3) 250 250 mcg PO QAM 03/30/22 02/28/23 History mcg (10,000 unit) tablet levothyroxine 112 mcg tablet 1 tablet PO QAM 04/17/22 02/28/23 History piroxicam 10 mg capsule 10 mg PO BID #180 caps 11/22/22 02/28/23 Rx acetaminophen 500 mg tablet 1,000
[2023-02-28] MEDS: ceFAZolin 2 GM/D5W 50 ML 2 GM/50 ML BAG IVPB ×2 (07:41→16:57)
[2023-02-28] MEDS: BUPIVACAINE/EPINEPHRINE 0.5% 50 ML VIAL INFILTRATE (09:00)
--- NOTE | 2023-02-28 11:00 | PM.OP ---
Procedure Note - Brief Procedure Note - Brief Date of procedure: 02/28/23 cervical myopathy, prev fusion Post-op diagnosis: Same Procedure performed: C3, 4 laminectomies then ACDF C3-4 Surgeon: Nessa Fajardo MD Special Events Manager: Jose Anesthesia: GETA Description of procedure: First stage: laminectomies at C3 and C4. Patient was then flipped supine. Second stage: ACDF C3-4 with 6mm cage Implants: 6mm Orthofix miniconstruct cage 12mm Zavation plate 4 14mm screws 1cc I-factor Estimated blood loss (mL): 50 Urine output (mL): 250 Drains: No Packing: No Pathology: None sent Complications: None Condition: Stable Disposition: PACU
[2023-02-28] MEDS: ONDANSETRON INJ 4 MG/2 ML VIAL IV PUSH (11:36)
--- NOTE | 2023-02-28 12:21 | W.PM.PROC2 ---
Procedure Note - Detailed Date of Procedure 02/28/23 Pre-op Diagnosis 1. Cervical myelopathy 2. 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 History of previous ACDF C4-6 Post-op Diagnosis Same Procedure Performed 1. Cervical laminectomies at C3 and C4 2. Anterior cervical diskectomy and arthrodesis at C3-4 3. Placement of interbody cage at C3-4 4. Placement of anterior cervical plate at C3-4 5. Use of microscope for microsurgical techniques 6. Use of fluoroscopy Surgeon Nessa Fajardo MD Bank Operations Officer Jose Anesthesia General Indications Ms. Patterson is a 77-year-old female with history of previous ACDF C4-6 who presented with worsening numbness in the hands, fine motor dysfunction, worsening balance, difficulty with ambulation, and urinary frequency. Imaging revealed adjacent segment disease at C3-4 with significant cord compression and T2 cord-signal changes at this level. Surgery in the form of C3, 4 laminectomies and ACDF C3-4 was recommended. Risks including bleeding, pain, infection, CSF leak, weakness, paralysis, coma, stroke, and were discussed. The patient and her daughters provided informed consent to proceed. Description of Procedure The patient was taken to the operating room. General anesthesia was induced, and garcia catheter was placed. Lopez pins were placed, and the patient was turned prone onto the OR table. The shoulders were taped down to better expose the neck. Hair on the base of the skull was clipped. The incision was planned with the assistance of fluoroscopy. Perioperative antibiotics were given. The surgical site was prepped and draped in usual sterile fashion. Time out was performed. Local anesthetic was injected into the planned incision. A midline posterior cervical incision was made with a 15-blade scalpel. The soft tissue was dissected to the spinous processes with the bovie. The laminae were exposed with the bovie as well. A self-retaining retractor was placed, and the C-arm was used to verify the correct level. A high-speed drill was used to create troughs bilaterally through the laminae at C3 and C4. The spinous processes and laminae were then removed easily with the Leksell. A kerrison was used to remove further bone fragments and the posterior longitudinal ligament. The spinal cord appeared well decompressed. Hemostasis was achieved with the bipolar and Surgiflo. The surgical site was copiously irrigated. The muscles were approximated with 0 vicryl. The fascia was closed with 0 vicryl as well. The deep dermis was closed with 2-0 vicryl, and the superficial dermis was closed with 3-0 vicryl. The skin was closed with running 3-0 nylon. Sterile dressings were placed. The patient was then returned to the supine position on a new OR table. The Lopez was removed, and a gel donut was placed under the head. The shoulders were taped down. Pressure points were appropriately padded, and compression devices were placed on the patient's calves. The appropriate level was confirmed with the C-arm XR imaging. The patient was prepped and draped in usual sterile fashion. Local anesthesia was injected into the planned incision site. Incision was made with a 10-blade scalpel. The subcutaneous tissue was undermined above the platysma with the Metzenbaum scissors. The platysma was sharply opened horizontally. Bleeding was controlled with the bipolar. The avascular plane to the spine was dissected sharply. The anterior border of the spine was located and exposed with sharp and blunt dissection. A spinal needle was used to localize the C3-4 disc space; this was confirmed on fluoroscopy. The longus coli muscles were elevated bilaterally with a bovie. Once the C3-4 vertebral bodies and adjacent intervertebral disc were adequately exposed, self-retaining retractors were placed. Hopkins pins were placed in the C3 and C4 vertebral bodies and were distracted
[2023-02-28] MEDS: ACETAMINOPHEN 500 MG TABLET 1000 MG PO ×2 (13:18→23:20)
--- NOTE | 2023-02-28 13:48 | PCOTNOTE ---
Attempted to see pt. for occupational therapy evaluation. Pt. currently nauseous and vomiting, with reports of pain at surgical sites around neck, declining to participate at this time. Nursing aware.
--- NOTE | 2023-02-28 15:20 | PCPTNOTE ---
Attempted PT evaluation. Pt refused stating she is too tired. Rn aware. Will follow.
--- NOTE | 2023-02-28 15:29 | ADMGEN ---
This patient, Celia Patterson, was admitted to 3 [facility] Surg Room 310-01. Patient/family oriented to hospital policies and general routines including ID bracelet, bed and alarms, visiting hours, pain management, procedures, bathroom and other care routines, personal items, smoking policy, room service/diet, and visiting hours. Information on how to activate the Rapid Response Team has been discussed. Patient/Family are encouraged to report perceived risks to care and to ask questions if they do not understand what they are told or what they should do.
--- NOTE | 2023-02-28 17:27 | PC.NURSE ---
Patient is extremely nauseous after surgery and does not want to get up or participate in any therapy at this time. Educted patient on importance of getting out of bed and participating in therapy. At this time patient is still refusing to get up.
[2023-02-28] MEDS: PROMETHAZINE HCL 25 MG/ML AMPUL 12.5 MG IV PUSH ×2 (17:51→23:09)
--- NOTE | 2023-02-28 21:04 | PC.NURSE ---
called for exchange for Nessa Fajardo MD, neurosurgeon.
--- NOTE | 2023-02-28 21:11 | PC.NURSE ---
called exchange Nessa Fajardo MD r/t pt require for piroxicam for OA pain
--- NOTE | 2023-02-28 21:20 | PC.NURSE ---
methocarbamol qid prn for pain and spasms order per Md Herrera, jasmin Durant pt states gives she double vision
[2023-02-28] MEDS: oxyCODONE HCL (*CRX) 2.5 MG TAB IR PO (23:14)
--- NOTE | 2023-02-28 23:22 | PC.NURSE ---
pt requesting oxycodone 0.5 tablet of 2.5 mg dose, 1.25 mg given PO per pt request, states will make her loopy but needs it for 10/10 pain, informed about methcarbamol 750 mg po prn order as well, doesn't want to take at this time, keeps requesting proxicam 10 mg home medication, already discussed with Md Herrera prior in this shift, Md Fajardo doesn't want pt to take NSAIDS at this time. Pt informed MD Herrera already called prior in shift about this matter and does not want pt to take at this time.
[2023-03-01] MEDS: ceFAZolin 2 GM/D5W 50 ML 2 GM/50 ML BAG IVPB ×2 (00:01→08:41)
--- NOTE | 2023-03-01 02:36 | PC.NURSE ---
pt pulled out IV
[2023-03-01 03:15] VITALS: BP 135/76; PULSE 103; RESP 18; TEMP 36.6; O2SAT 97
[2023-03-01] MEDS: oxyCODONE HCL (*CRX) 2.5 MG TAB IR PO ×3 (05:02→20:04)
[2023-03-01] MEDS: ACETAMINOPHEN 500 MG TABLET 1000 MG PO ×4 (05:03→23:30)
--- NOTE | 2023-03-01 05:51 | PC.NURSE ---
pt doesn't want to take levothroxyine until meal comes
[2023-03-01 06:02] VITALS: BP 148/79; PULSE 109; RESP 18; TEMP 36.4; O2SAT 97
--- NOTE | 2023-03-01 07:34 | WPDANESPN ---
Anes - Prog Note Post-Op Date/Time: 03/01/23 07:34 Cardiovascular status: normal Respiratory status: normal Airway patency: baseline Mental status: baseline Post-Op hydration status: normal Vital Signs: Last Vital Signs Temp 36.6 C 03/01/23 03:15 Pulse 103 H 03/01/23 03:15 Resp 18 03/01/23 03:15 BP 135/76 03/01/23 03:15 Pulse Ox 97 03/01/23 03:15 O2 Del Method Nasal Cannula 02/28/23 22:13 O2 Flow Rate 2 02/28/23 22:13 Pain Score (VAS): 2 I/O: Intake & Output 02/28/23 02/28/23 03/01/23 15:59 23:59 07:59 Intake Total 250 200 50 Output Total 500 40 Balance -250 160 50 Post-procedural complaints: none Patient Feedback: Patient satisfied with anesthetic care.
[2023-03-01 08:00] VITALS: BP 123/75; PULSE 126; RESP 18; TEMP 35.5; O2SAT 94
[2023-03-01] MEDS: LEVOTHYROXINE SODIUM 112 MCG TABLET PO (08:30)
[2023-03-01] MEDS: CHOLECALCIFEROL 1,000 UNITS TABLET 10000 UNITS PO (08:31)
[2023-03-01] MEDS: OLMESARTAN MEDOXOMIL 10 MG TABLET PO (08:32)
[2023-03-01] MEDS: PANTOPRAZOLE 40 MG TABLET PO (08:32)
[2023-03-01 12:00] VITALS: BP 119/66; PULSE 97; RESP 18; TEMP 35.9; O2SAT 96
--- NOTE | 2023-03-01 12:07 | PCPTNOTE ---
On 03/01/23, the student, [Ksenia Harris], provided care and completed [facility] documentation on this patient. I have reviewed the student's documentation and agree with the findings.
--- NOTE | 2023-03-01 15:04 | WPDNEUROSGPN ---
Progress Note: A&P Assessment and Plan (1) Cervical spinal stenosis due to adjacent segment disease after fusion procedure: Code(s): M48.02 - Spinal stenosis, cervical region; M50.30 - Other cervical disc degeneration, unspecified cervical region Status: Acute (2) Cervical myelopathy: Code(s): G95.9 - Disease of spinal cord, unspecified Status: Acute (3) Status post cervical arthrodesis: Code(s): Z98.1 - Arthrodesis status Status: Acute Plan Ms. Patterson is a 77-year-old female with history of previous ACDF C4-6 who presented with cervical myelopathy and adjacent segment disease at C3-4 who underwent C3,4 laminectomies and ACDF C3-4 on 02/28. She is overall doing well. Plan: -Anticipate discharge home tomorrow morning -Continue to ambulate with therapy, out of bed to chair -Discussed restrictions again at the bedside Subjective Date/time seen: 03/01/23 12:30 Interval history: Complaining of pain in the back of the neck. Trying to avoid taking pain medication, although she did take an oxycodone earlier today which was helpful. Mild swallowing difficulty with chicken at lunch, otherwise swallowing well. Ambulated with physical therapy with a walker. Voiding without difficulty. Review of Systems Review of Systems: All systems reviewed & are unremarkable except as noted in HPI and below Constitutional: Comments: AOx4 Full strength in extremities Sensation intact to light touch Right anterior cervical incision with mild swelling Posterior cervical dressing with some serosanguinous drainage Objective Data Vital Signs Vital Signs: Vital Signs - 24 hr 02/28/23 15:10 02/28/23 18:30 02/28/23 19:59 Temperature 97.1 F L 96.9 F L 97.1 F L Pulse Rate 73 114 H 102 H Respiratory Rate 16 22 H 20 Blood Pressure 163/73 H 165/97 H 166/87 H Pulse Oximetry 97 92 96 Oxygen Delivery Oxygen Flow Rate 02/28/23 20:00 02/28/23 21:50 02/28/23 22:13 Temperature Pulse Rate 102 H Respiratory Rate 20 Blood Pressure Pulse Oximetry 96 88 L 94 Oxygen Delivery Nasal Cannula Room Air Nasal Cannula Oxygen Flow Rate 2 2 02/28/23 23:11 03/01/23 03:15 03/01/23 07:37 Temperature 97.0 F L 97.9 F Pulse Rate 109 H 103 H Respiratory Rate 18 18 Blood Pressure 143/76 H 135/76 Pulse Oximetry 98 97 Oxygen Delivery Room Air Oxygen Flow Rate 03/01/23 06:02 03/01/23 08:30 03/01/23 08:13 Temperature 97.6 F Pulse Rate 109 H Respiratory Rate 18 Blood Pressure 148/79 H Pulse Oximetry 97 Oxygen Delivery Room Air Room Air Oxygen Flow Rate Intake/Output Intake/Output: Intake & Output 02/26/23 02/27/23 02/28/23 03/01/23 23:59 23:59 23:59 23:59 Intake Total 450 944 Output Total 540 1000 Balance -90 -56 Meds/Results Medications: Active Medications Generic Name Dose Route Start Last Admin Trade Name Freq PRN Reason Stop Dose Admin Acetaminophen 1,000 mg 02/28/23 12:20 03/01/23 12:54 Acetaminophen 500 Mg Tablet PO 1,000 mg Q6HR TIFFANY Administration Al Hydrox/Mg Hydrox/Simethicone 20 ml 02/28/23 11:02 Mag Hydrox/Al Hydrox/Simeth 30 Ml Udc PO Q4H PRN Indigestion/Heartburn Bisacodyl 10 mg 02/28/23 11:02 Bisacodyl 10 Mg Suppository RECTAL DAILY PRN Constipation Diazepam 5 mg 02/28/23 11:07 Diazepam (*Crx) 5 Mg Tablet PO TID PRN Anxiety Docusate Sodium 100 mg 02/28/23 21:00 03/01/23 08:31 Docusate Sodium 100 Mg Capsule PO Not Given Q12HR [facility] Levothyroxine Sodium 112 mcg 03/01/23 07:30 03/01/23 08:30 Levothyroxine Sodium 112 Mcg Tablet PO 112 mcg DAILY@0730 TIFFANY Administration Methocarbamol 750 mg 02/28/23 21:20 Methocarbamol 750 Mg Tablet PO QID PRN Pain Olmesartan 10 mg 03/01/23 09:00 03/01/23 08:32 Olmesartan Medoxomil 10 Mg Tablet PO 10 mg DAILY ITFFANY Administration Ondansetron HCl 4 mg 02/28/23 11:02 02/28/23 11:36 Ondan
--- NOTE | 2023-03-01 16:47 | PC.NURSE ---
Pt has reported pain throughout the day. Pt has been treated with pain medication. Pt reports that the pain medication makes her very sleepy. Pt does not express any needs at this time. Pt has tolerated ambulation around the room and in the halls. Pt has participated in plan of care. Will continue to monitor pt.
[2023-03-01 20:00] VITALS: PULSE 97; RESP 18; O2SAT 96
[2023-03-01 22:00] VITALS: BP 128/74; PULSE 112; RESP 18; TEMP 36.5; O2SAT 95
[2023-03-02] MEDS: oxyCODONE HCL (*CRX) 2.5 MG TAB IR PO (02:05)
[2023-03-02 05:00] VITALS: BP 135/72; PULSE 106; RESP 18; TEMP 36.3; O2SAT 97
[2023-03-02] MEDS: ACETAMINOPHEN 500 MG TABLET 1000 MG PO (05:49)
[2023-03-02] MEDS: diazePAM (*CRX) 5 MG TABLET PO (06:01)
[2023-03-02] MEDS: CHOLECALCIFEROL 1,000 UNITS TABLET 10000 UNITS PO (08:28)
[2023-03-02] MEDS: OLMESARTAN MEDOXOMIL 10 MG TABLET PO (08:28)
[2023-03-02] MEDS: PANTOPRAZOLE 40 MG TABLET PO (08:28)
[2023-03-02] MEDS: LEVOTHYROXINE SODIUM 112 MCG TABLET PO (08:28)
--- NOTE | 2023-03-02 12:35 | PM.DS ---
DS: Admitting Diagnosis Discharge Date 03/02/23 Admitting Diagnosis Cervical myelopathy, history of previous ACDF C4-6 with adjacent segment disease DS: Discharge Diagnosis Discharge Diagnosis (1) Status post cervical arthrodesis: Code(s): Z98.1 - Arthrodesis status Status: Acute (2) Cervical spinal stenosis due to adjacent segment disease after fusion procedure: Code(s): M48.02 - Spinal stenosis, cervical region; M50.30 - Other cervical disc degeneration, unspecified cervical region Status: Acute (3) Cervical myelopathy: Code(s): G95.9 - Disease of spinal cord, unspecified Status: Acute DS: Summary Hospital Course Reason for hospitalization: Ms. Patterson is a 77-year-old female with history of previous ACDF C4-6 who presented with worsening numbness in the hands, fine motor dysfunction, worsening balance, difficulty with ambulation, and urinary frequency. Imaging revealed adjacent segment disease at C3-4 with significant cord compression and T2 cord-signal changes at this level. Surgery in the form of C3, 4 laminectomies and ACDF C3-4 was recommended.?She presented on 02/28 for surgery. Hospital Course: Ms. Patterson went to the operating room on February 28 for cervical laminectomies at C3 and C4 followed by ACDF C3-4. Please see the operative note for more details. The surgery was uncomplicated, and she was transferred to the floor after surgery. She had some issues with nausea and vomiting after surgery that were not controlled with Zofran, so Phenergan was started. On postoperative day 1, she noticed some dysphagia with chicken but was able to swallow liquids and softer foods without any difficulty. She ambulated with physical therapy with a walker. Her pain was manageable with medications. She was determined ready for discharge on postoperative day 2. Status at Discharge Functional status at discharge: uses cane/walker Time Spent with Patient Time attestation: Total time spent providing and/or coordinating discharge services: Exam Narrative: From 03/01: AOx4 Full strength in extremities Sensation intact to light touch Right anterior cervical incision with mild swelling Posterior cervical dressing with some serosanguinous drainage Discharge Plan Discharge Attending physician on discharge: Nessa Fajardo Discharging Clinician: Nessa Fajardo Patient Disposition: Home, Self-Care Activity: january shower Diet: as tolerated Wound Care Instructions: follow printed instructions and incision open to air Discharge Instructions: Discharge Instructions Procedure: Anterior Cervical Diskectomy and Fusion (ACDF) and cervical laminectomy Your doctor removed one or more discs from your neck, to remove pressure from the spinal cord or nerve roots, and then fused your spine using a small metal plate and a cage filled with synthetic bone. Here are some instructions to follow upon discharge from the hospital to help in your recovery: Activity: Until released by your doctor, you should not return to work. You should rest at home and let your body heal. Taking short walks is encouraged, but avoid strenuous exercise. Do not jog, run, lift weights, bicycle, or participate in any other exercises unless specifically allowed by your doctor. Most importantly, avoid lifting objects heavier than a telephone book or a carton of milk as this places a strain on your neck. If possible, avoid household activities that involve lifting such as laundry, grocery shopping, childcare. Try to arrange for help from friends and family for these activities while your neck heals. You should not drive for 7-10 days, until you are both off of narcotics and your neck has loosened up enough to safely check your blind spots. You may shower. After showering, lightly dab your wound dry. Do not take baths or sit in a hot tub or pool until approved by your doctor at your follow-up appointment. Do not apply
== END 2023-03-02 10:00 | disposition home or self-care (01) | DRG 472 ==
LOC: ANH3MEDSUR 12:12
PROVIDERS: Admitting Provider Neurological Surgery; PCP Student in an Organized Health Care Education/Training Program; Visit Provider Neurological Surgery
PROC: 0RB30ZZ Excision of Cervical Vertebral Disc, Open Approach (ICD-10-PCS; CPT 22551; principal; 2023-02-28 07:30)
DX: M48.02 Spinal stenosis, cervical region (principal); G95.9 Disease of spinal cord, unspecified; M50.30 Other cervical disc degeneration, unspecified cervical region; E03.9 Hypothyroidism, unspecified; I10 Essential (primary) hypertension; M19.90 Unspecified osteoarthritis, unspecified site; R13.10 Dysphagia, unspecified; Z98.1 Arthrodesis status; Z96.642 Presence of left artificial hip joint; Z87.891 Personal history of nicotine dependence; Z88.0 Allergy status to penicillin
CPT/HCPCS: 97161; 97165; 97530; 97535; 99199; A9270; C1713; J0131; J0330; J0690; J1100; J1170; J2250; J2405; J2550; J2704; J2710; J3010; J7120

== ENCOUNTER 2023-04-23 15:00 | Outpatient (RCR) | payer MEDICARE, SELFPAY ==
--- NOTE | 2023-04-11 16:18 | PTOPEVAL1 ---
Assessment and note entered by Marylin Butcher, PT Evaluation Information Assessment Status Evaluation Diagnosis s/p cervical fusion Onset February 28, 2023 Subjective Information history includes cervical surgery 2005; bilateral carpal tunnel release November 2022; since surgery, orders no lift over 10#; does not have a cervical collar; lives alone, prior to surgery, indep with all tasks; since surgery daughter assist with airport ramp agent, driving, grocery shopping pickler helper; use wheeled walker or cane for ambulation due to back pian, bilateral hip and knee pain; Reported Pain Level Pain Score Self Report Additional Pain Score Comments pain range in the past week: 3-5/10; both hands numb all the time, but less than it was at first; pain over R and L cervical and shoulders--sore, hurts; head feels heavy; R arm pain to mid humerus > L little sore, intermittent to mid humerus; have overall body pain from arthritis, not able to take her usual arthritis med since surgery; increase pain with using arms, doing things in kitchen and in home decrease pain with tylenol, PRN oxycodone-- not taken in the past 4 days; is not using heat/ice- instruct on PRN use; neck does not disrupt her sleeping. Assessment PT Clinical Summary Celia is s/p cervical fusion on February 28. Her medical history includes: previous neck surgery 2005; R and L rotator cuff repairs with limited motion, bilateral carpal tunnel surgery November 2022 ; Her self assessment with the Neck Disability Index score of 38% limitation in activity level. Prior to surgery, she was indep with all home and self care tasks and drove. Since surgery, daughter is assisting with shopping, driving, home tasks. With the evaluation, she has poor positioning of her shoulders and neck; weakness of shoulders and neck, with muscle spasms over cervical -thoracic musculature and tightness over scars. Skilled PT services are indicated for modalities to decrease pain and spasms, therapeutic exercises to increase strength and flexibility and education for home e
--- NOTE | 2023-04-13 08:15 | OPREHPOC ---
Outpatient Therapy Plan of Care This is a Multidisciplinary Plan of Care that may contain components documented by all disciplines (PT, OT, and ST.) PT Problem 1 PT Problem #1 Knowledge Deficit PT Goal 1 Goal 1* indep with home exercise program PT Problem 2 PT Problem #2 Pain PT Goal 1 Goal 1* pt report pain of neck at worst 3/10 2* self assessment functional score with Neck Disability Index 28% limitation PT Problem 3 PT Problem #3 Impaired Strength PT Goal 1 Goal 1* pt able to hold neck in neutral position during PT session 2* pt able to perform 20 reps of R shoulder flexion 3* pt able to perform 20 reps of L shoulder flexion PT Problem 4 PT Problem #4 Impaired Flexibility PT Goal 1 Goal 1* pt report she is able to drive short distances 2* pt have cervical active extension to neutral/0' 3* no pain increase with cervical rotation R 4* no pain increase with cervical rotation L
--- NOTE | 2023-04-26 15:44 | PTOPDC ---
Assessment and note entered by Marylin Butcher, PT Evaluation Information Assessment Status Discharge - Pt Not Present Diagnosis s/p cervical fusion Onset February 28, 2023 Subjective Information Pt called and stated dr told her not to come to therapy any more. Assessment PT Clinical Summary Celia has received 4 PT sessions. She had increased pain at last session. She called and canceled therapy, stated her dr told her she did not need PT anymore. Therefore, she will be discharged at this time. The goals were not addressed. Plan of Care PT Services Indicated No
== END 2023-04-27 07:38 | disposition home or self-care (01) ==
LOC: ANHPT 15:00
PROVIDERS: PCP Student in an Organized Health Care Education/Training Program; Visit Provider Neurological Surgery
DX: Z98.1 Arthrodesis status (principal)
CPT/HCPCS: 97110; 97140; 97162

== ENCOUNTER 2023-05-10 11:23 | Outpatient (CLI) | payer MEDICARE, SELFPAY ==
--- NOTE | ~2023-05-10 | XR_ITS ---
Cervical Spine: AP, lateral, open-mouth views Clinical History: Arthrodesis COMPARISON: 01/25/2023 Findings: Patient is status post interval anterior fusion from C3 to C4, anterior plate and screws an d interbody fusion device present. Additional fusion from C4 through C6 is stable from prior exam, wi th mature fusion at these levels. There is moderate degenerative disc narrowing at C6-C7. No preverte bral soft tissue swelling. Impression: Status post interval anterior fusion from C3 to C4, as detailed above. Stable anterior fusion from C4 to C6, as noted above. Reviewed, dictated and finalized at location . Impression: Status post interval anterior fusion from C3 to C4, as detailed above. Stable anterior fusion from C4 to C6, as noted above.
== END 2023-05-10 11:24 | disposition home or self-care (01) ==
LOC: ANHIMG 11:27
PROVIDERS: PCP Student in an Organized Health Care Education/Training Program; Visit Provider Neurological Surgery
DX: Z98.1 Arthrodesis status (principal)
CPT/HCPCS: 72040

== ENCOUNTER 2023-06-03 11:17 | Outpatient (CLI) | payer MEDICARE, SELFPAY ==
--- NOTE | ~2023-06-03 | MR_ITS ---
MRI of the cervical spine Clinical History: Arthrodesis Technique: Axial T2-weighted and gradient images, and sagittal T1-weighted, T2-weighted, and STIR eddie ges were acquired. Findings: There is no acute fracture or subluxation of the cervical spine. There is anterior fusion f rom C3 to C4, with anterior plate and screws present. There is interbody fusion across the C4-C5 and C5-C6 disc spaces. No suspicious bone marrow signal abnormality seen. There is moderate degenerative disc change at C2-C3 and C6-C7. At C2-C3, there is minimal disc bulge. No spinal canal stenosis, cord compression, or neural foramina l narrowing. At C3-C4, there is disc osteophyte complex which mildly flattens the ventral cord. There is probable bilateral neural foraminal narrowing with bilateral facet arthropathy present. At C4-C5, there is no definite canal stenosis or cord compression. Bilateral neural foramina are pres erved. At C5-C6, there is probable bilateral neural foraminal narrowing, left worse than right, with mild fa cet hypertrophy. No definite central canal stenosis or cord compression. At C6-C7, there is no definite central canal stenosis or cord compression. There is left neural marsha inal narrowing with left facet arthropathy. Right neural foramen preserved. . Mild hyperintense T2 signal in the spinal cord at the C3-C4 level. Paravertebral soft tissues are u nremarkable. Impression: Anterior and interbody fusion from C3 through C6, as detailed above. Moderate degenerative spondylosis at C3-C4 and C5-C6, as detailed above. Additional mild degenerative changes, as above. Amorphous hyperintense T2 cord signal to C3 and C4 levels. This could reflect sequela of chronic myel omalacia/cord compression. Reviewed, dictated and finalized at location . Impression: Anterior and interbody fusion from C3 through C6, as detailed above. Moderate degenerative spondylosis at C3-C4 and C5-C6, as detailed above. Additi onal mild degenerative changes, as above. Amorphous hyperintense T2 cord signal to C3 and C4 levels. This could reflect s equela of chronic myelomalacia/cord compression.
--- NOTE | ~2023-06-03 | MR_ITS ---
MRI of the brain Clinical History: Right arm paresthesia Technique: Axial and sagittal T1-weighted images were acquired. These were followed by axial T2-weigh scott, diffusion weighted, gradient, and FLAIR images. Findings: No acute infarct, intracranial hemorrhage, or mass lesion identified. There is moderate to severe chronic white matter disease in the periventricular white matter bilaterally. Ventricles and subarachnoid spaces are dilated. Orbits are unremarkable. Paranasal sinuses and mastoi d air cells are clear. Major intracranial flow voids are intact. Sagittal midline structures are intact. IMPRESSION: No acute intracranial abnormality. Moderate to severe chronic microvascular ischemic changes. Mild to moderate generalized atrophy. Reviewed, dictated and finalized at location .
== END 2023-06-03 11:18 | disposition home or self-care (01) ==
PROVIDERS: PCP Student in an Organized Health Care Education/Training Program; Visit Provider Neurological Surgery
DX: R20.0 Anesthesia of skin (principal); Z98.1 Arthrodesis status; M47.892 Other spondylosis, cervical region
CPT/HCPCS: 70551; 72141

== ENCOUNTER 2023-06-05 12:30 | Outpatient (CLI) | payer MEDICARE, SELFPAY ==
[2023-06-05 13:20] LABS: Creatinine Urine 203.7 mg/dL
[2023-06-05 13:25] LABS: Albumin Level 4.1 g/dL (3.5-5.1); Anion Gap 10 mmol/L (8-16); Blood Urea Nitrogen 28 mg/dL (7-17); Calcium 9.2 mg/dL (8.4-10.2); Carbon Dioxide 20 mmol/L (22-30); Chloride 104 mmol/L (98-107); Estimated Glomerular Filt Rate 44; Glucose 99 mg/dL (65-110); Phosphorus 4.1 mg/dL (2.5-4.5); Potassium 4.5 mmol/L (3.4-5.0); Sodium 134 mmol/L (137-145)
[2023-06-05 13:35] LABS: Parathyroid Intact 30.5 pg/mL (7.5-53.5)
[2023-06-05 14:00] LABS: Vitamin D 25 Hydroxy 48.1 ng/mL
[2023-06-05 14:06] LABS: Total Protein Urine Random < 5 mg/dL; Ur Ttl Prot Creatinine Ratio < 0.02 mg/mg (0-0.20)
== END 2023-06-05 12:31 | disposition home or self-care (01) ==
PROVIDERS: PCP Student in an Organized Health Care Education/Training Program; Visit Provider Internal Medicine Nephrology
DX: E55.9 Vitamin D deficiency, unspecified (principal); I12.9 Hypertensive chronic kidney disease with stage 1 through stage 4 chronic kidney disease, or unspecified chronic kidney disease; N18.32 Chronic kidney disease, stage 3b; N25.81 Secondary hyperparathyroidism of renal origin
CPT/HCPCS: 36415; 80069; 82306; 82570; 83970; 84156

== ENCOUNTER 2023-06-20 08:26 | Outpatient (CLI) | payer MEDICARE, SELFPAY ==
[2023-06-20 09:12] LABS: Basophils Absolute Auto 0.1 K/mm3 (0.0-0.1); Basophils Percent Auto 1.1 % (0.2-1.2); Eosinophils Absolute Auto 0.3 K/mm3 (0-0.3); Eosinophils Percent Auto 3.8 % (0-4.4); Hemoglobin 10.6 g/dL (12.0-15.0); Immature Granulocyte Absolute 0.02 K/mm3 (0.00-0.031); Immature Granulocyte Percent A 0.3 % (0-0.5); Lymphocytes Absolute Auto 2.28 K/mm3 (0.9-3.2); Mean Corpuscular HGB Conc 31.2 g/dl (32-36); Mean Corpuscular Hemoglobin 25.6 pg (26-34); Mean Corpuscular Volume 82.1 fl (80-100); Monocytes Absolute Auto 0.6 K/mm3 (0.1-0.6); Monocytes Percent Auto 8.3 % (2.6-8.5); Neutrophils Absolute Auto 4.1 K/mm3 (1.3-6.7); Neutrophils Percent Auto 55.5 % (45.5-73.1); Platelet Count Result 394 k/mm3 (150-375); Red Blood Count 4.14 M/mm3 (4.2-5.4); Red Cell Distribution Width 16.9 % (11.5-14.5); White Blood Count 7.4 K/mm3 (4.5-10.0)
[2023-06-20 09:30] LABS: Alanine Aminotransferase 19 U/L (6-35); Albumin Level 4.1 g/dL (3.5-5.1); Alkaline Phosphatase 75 U/L (38-126); Anion Gap 6 mmol/L (8-16); Aspartate Amino Transferase 27 U/L (14-36); Bilirubin,Total 1.2 mg/dL (0.2-1.3); Blood Urea Nitrogen 21 mg/dL (7-17); Calcium 9.4 mg/dL (8.4-10.2); Carbon Dioxide 26 mmol/L (22-30); Chloride 105 mmol/L (98-107); Cholesterol 179 mg/dL (0-200); Estimated Glomerular Filt Rate 44; Glucose 103 mg/dL (65-110); HDL Direct 38 mg/dL; Potassium 4.3 mmol/L (3.4-5.0); Sodium 137 mmol/L (137-145); Triglycerides 203 mg/dL (<150)
[2023-06-20 09:41] LABS: LDL Cholesterol Direct 79 mg/dL
[2023-06-20 11:34] LABS: Hepatitis C Virus Antibody Negative (Negative)
== END 2023-06-20 08:27 | disposition home or self-care (01) ==
LOC: ANHLAB 08:30
PROVIDERS: PCP Student in an Organized Health Care Education/Training Program; Visit Provider Student in an Organized Health Care Education/Training Program
DX: E03.8 Other specified hypothyroidism (principal); Z11.59 Encounter for screening for other viral diseases; Z13.220 Encounter for screening for lipoid disorders; Z13.0 Encounter for screening for diseases of the blood and blood-forming organs and certain disorders involving the immune mechanism; Z13.228 Encounter for screening for other metabolic disorders; Z13.29 Encounter for screening for other suspected endocrine disorder; N18.32 Chronic kidney disease, stage 3b
CPT/HCPCS: 36415; 80053; 80061; 84443; 85025; 86803

== ENCOUNTER 2023-07-20 07:31 | Outpatient (CLI) | payer MEDICARE, SELFPAY ==
[2023-07-20 08:23] LABS: Basophils Absolute Auto 0.1 K/mm3 (0.0-0.1); Basophils Percent Auto 1.2 % (0.2-1.2); Eosinophils Absolute Auto 0.2 K/mm3 (0-0.3); Eosinophils Percent Auto 2.9 % (0-4.4); Hematocrit 39.7 % (37.0-47.0); Hemoglobin 12.3 g/dL (12.0-15.0); Immature Granulocyte Absolute 0.02 K/mm3 (0.00-0.031); Immature Granulocyte Percent A 0.3 % (0-0.5); Lymphocytes Absolute Auto 2.01 K/mm3 (0.9-3.2); Lymphocytes Percent Auto 26.3 % (18.3-44.2); Mean Corpuscular Hemoglobin 26.6 pg (26-34); Mean Corpuscular Volume 85.9 fl (80-100); Mean Platelet Volume 9.4 fl (7.4-10.4); Monocytes Absolute Auto 0.7 K/mm3 (0.1-0.6); Monocytes Percent Auto 9.4 % (2.6-8.5); Neutrophils Absolute Auto 4.6 K/mm3 (1.3-6.7); Neutrophils Percent Auto 59.9 % (45.5-73.1); Platelet Count Result 376 k/mm3 (150-375); Red Blood Count 4.62 M/mm3 (4.2-5.4); Red Cell Distribution Width 21.2 % (11.5-14.5); White Blood Count 7.7 K/mm3 (4.5-10.0)
[2023-07-20 09:00] LABS: Appearance Urine Clear (Clear); Bacteria Urine None Seen /hpf; Bilirubin Urine Negative (Negative); Blood Urine Negative (Negative); Color Urine Yellow (Yellow); Glucose Urine UA Negative (Negative); Ketones Urine Negative (Negative); Leukocyte Esterase Ur 3+ LEU/UL (Negative); Nitrate Urine Negative (Negative); Non Pathogenic Casts 0-2; Protein Urine Negative (Negative); RBC Urine 0-2 /hpf (0-2); Specific Grav Ur 1.014 (1.001-1.035); Squamous Epithelial Cell Urine Few /hpf (Few); Urobilinogen Urine 0.2 mg/dL (<2.0); WBC Urine 51-100 /hpf
[2023-07-20 09:07] LABS: Add Urine Microscopic? YES
[2023-07-20 12:42] LABS: Lactate Dehydrogenase 185 U/L (120-246)
[2023-07-20 12:57] LABS: Transferrin 301 mg/dL (206-381)
[2023-07-20 13:24] LABS: Iron 119 ug/dL (37-170)
[2023-07-20 13:35] LABS: Percent Iron Saturation 31 % (20-50)
[2023-07-25 22:04] LABS: Haptoglobin 179 mg/dL (43-212)
== END 2023-07-20 07:32 | disposition home or self-care (01) ==
PROVIDERS: PCP Student in an Organized Health Care Education/Training Program; Visit Provider Student in an Organized Health Care Education/Training Program
DX: D64.9 Anemia, unspecified (principal); I10 Essential (primary) hypertension; Z79.899 Other long term (current) drug therapy
CPT/HCPCS: 36415; 81001; 82607; 82728; 82746; 83010; 83540; 83550; 83615; 84466; 85025; 87086; 87088

== ENCOUNTER 2023-08-29 12:42 | Outpatient (CLI) | payer MEDICARE, SELFPAY ==
--- NOTE | ~2023-08-29 | XR_ITS ---
Cervical Spine: AP, lateral, open-mouth views Clinical History: Arthrodesis COMPARISON: 05/10/2023 Findings: There is anterior and interbody fusion extending from C3 to C4. There are additional interb fatimah fusions from C4 to C5 and C5-C6. There is grade 1 retrolisthesis of C2 over C3. There is diffuse, severe facet arthropathy throughout the cervical spine. Stable degenerative disc narrowing at C2-C3. Pre-vertebral soft tissues are unremarkable. Impression: Postoperative changes, as above, stable from prior exam. Stable moderate to advanced degenerative spondylosis, as detailed above. Stable grade 1 retrolisthesis of C2 over C3. Reviewed, dictated and finalized at location M. MBOAT CAPTAIN Impression: Postoperative changes, as above, stable from prior exam. Stable moderate to advanced degenerative spondylosis, as detailed above. Stable grade 1 retrolisthesis of C2 over C3.
== END 2023-08-29 12:43 | disposition home or self-care (01) ==
PROVIDERS: PCP Student in an Organized Health Care Education/Training Program; Visit Provider Neurological Surgery
DX: Z98.1 Arthrodesis status (principal); M47.892 Other spondylosis, cervical region
CPT/HCPCS: 72040

== ENCOUNTER 2023-11-28 08:15 | Outpatient (CLI) | payer MEDICARE, SELFPAY ==
[2023-11-28 09:10] LABS: Basophils Absolute Auto 0.1 K/mm3 (0.0-0.1); Basophils Percent Auto 1.1 % (0.2-1.2); Eosinophils Absolute Auto 0.2 K/mm3 (0-0.3); Eosinophils Percent Auto 2.9 % (0-4.4); Hematocrit 36.7 % (37.0-47.0); Hemoglobin 11.7 g/dL (12.0-15.0); Immature Granulocyte Absolute 0.02 K/mm3 (0.00-0.031); Immature Granulocyte Percent A 0.3 % (0-0.5); Lymphocytes Absolute Auto 1.99 K/mm3 (0.9-3.2); Lymphocytes Percent Auto 27.4 % (18.3-44.2); Mean Corpuscular HGB Conc 31.9 g/dl (32-36); Mean Corpuscular Hemoglobin 28.5 pg (26-34); Mean Corpuscular Volume 89.5 fl (80-100); Mean Platelet Volume 9.5 fl (7.4-10.4); Monocytes Absolute Auto 0.6 K/mm3 (0.1-0.6); Monocytes Percent Auto 8.4 % (2.6-8.5); Neutrophils Absolute Auto 4.3 K/mm3 (1.3-6.7); Neutrophils Percent Auto 59.9 % (45.5-73.1); Platelet Count Result 368 k/mm3 (150-375); Red Cell Distribution Width 14.9 % (11.5-14.5); White Blood Count 7.3 K/mm3 (4.5-10.0)
[2023-11-28 09:23] LABS: Alanine Aminotransferase 18 U/L (6-35); Albumin Level 4.3 g/dL (3.5-5.1); Alkaline Phosphatase 90 U/L (38-126); Anion Gap 9 mmol/L (8-16); Aspartate Amino Transferase 29 U/L (14-36); Bilirubin,Total 1.3 mg/dL (0.2-1.3); Blood Urea Nitrogen 25 mg/dL (7-17); Calcium 9.7 mg/dL (8.4-10.2); Carbon Dioxide 22 mmol/L (22-30); Chloride 106 mmol/L (98-107); Cholesterol 184 mg/dL (0-200); Estimated Glomerular Filt Rate 44; Glucose 107 mg/dL (65-110); HDL Direct 37 mg/dL; Phosphorus 3.8 mg/dL (2.5-4.5); Potassium 4.2 mmol/L (3.4-5.0); Sodium 137 mmol/L (137-145); Triglycerides 241 mg/dL (<150)
[2023-11-28 09:24] LABS: Creatinine Urine 122.1 mg/dL; Total Protein Urine Random 8 mg/dL; Ur Ttl Prot Creatinine Ratio 0.07 mg/mg (0-0.20)
[2023-11-28 09:34] LABS: LDL Cholesterol Direct 89 mg/dL
[2023-11-28 10:25] LABS: Vitamin D 25 Hydroxy 43.7 ng/mL
== END 2023-11-28 08:16 | disposition home or self-care (01) ==
PROVIDERS: PCP Student in an Organized Health Care Education/Training Program; Referring Provider Student in an Organized Health Care Education/Training Program; Visit Provider Internal Medicine Nephrology
DX: I12.9 Hypertensive chronic kidney disease with stage 1 through stage 4 chronic kidney disease, or unspecified chronic kidney disease (principal); N18.32 Chronic kidney disease, stage 3b
CPT/HCPCS: 36415; 80053; 80061; 82306; 82570; 84100; 84156; 84443; 85025

== ENCOUNTER 2024-01-02 16:03 | Outpatient (CLI) | payer MEDICARE, SELFPAY ==
--- NOTE | 2024-01-02 | ECHO_ITS ---
Patient Info Name: Celia Patterson Age: 78 years : 1945 Gender: Female Ht: 64 in Wt: 190 lbs BSA: 2.01 m2 HR: 90 bpm BP: 159 / 94 mmHg Heart Rhythm: Sinus Rhythm Technical Quality: Fair Exam Date: 01/02/2024 4:16 PM Exam Location: Echo Lab Patient Status: Outpatient Admit Date: 01/02/2024 Staff Ordering Physician: MalVinh DO National Stormwater Leader: Jana Manzanares RDCS Attending Provider: Mal, Vinh GOFF Exam Type: CA echo doppler color flow Study Info Indications - stage 3b chronic kidney disease, htn Complete two-dimensional, color flow and Doppler transthoracic echocardiogram is performed. Summary 1. Complete two-dimensional, color flow and Doppler transthoracic echocardiogram is performed. 2. Left ventricular chamber dimension is normal. 3. Left ventricular systolic function is normal, estimated at 60-65%. 4. There is mildly increased left ventricular wall thickness. 5. The left ventricular diastolic function is grade I diastolic dysfunction. 6. Right ventricular systolic function is normal. 7. There is mild aortic valve regurgitation. 8. There is mild mitral valve regurgitation. 9. There is small anterior pericardial effusion. Left Ventricle Left ventricular chamber dimension is normal. Left ventricular systolic function is normal, estimated at 60-65%. There is mildly increased left ventricular wall thickness. The left ventricular diastolic function is grade I diastolic dysfunction. Right Ventricle Right ventricular chamber dimension is normal. Right ventricular systolic function is normal. Left Atria Left atrial chamber dimension is normal. Right Atria Right atrial chamber dimension is normal. Atrial Septum Intact interatrial septum visualized by color flow imaging. Aortic Valve The aortic valve is probable trileaflet. There is no aortic valve stenosis. There is mild aortic valve regurgitation. There is mild aortic valve calcification. Pulmonic Valve The pulmonic valve is not well visualized. There is trace pulmonic regurgitation. Mitral Valve There is mild mitral valve regurgitation. The mitral valve annulus is mildly calcified. Tricuspid Valve There is trace tricuspid valve regurgitation. Pericardium/Pleural The pericardium appears epicardial fat pad. There is small anterior pericardial effusion. Inferior Vena Cava Normal inferior vena cava with >50% collapse upon inspiration consistent with normal right atrial pressure, 3 mmHg. Aorta The aortic root size at the sinus of Valsalva is normal. Left Ventricular Outflow Tract Name Value Normal LVOT 2D LVOT Diameter 2.0 cm LVOT Doppler LVOT Peak Gradient 2 mmHg LVOT Mean Gradient 1 mmHg LVOT VTI 17 cm LVOT VTI/AV VTI Ratio 0.7 LVOT Stroke Volume 52 ml LVOT CO 4.4 l/min LVOT CI 2.2 l/min/m2 Pulmonic Valve Name Value Normal
== END 2024-01-02 16:04 | disposition home or self-care (01) ==
LOC: ANHCARD 16:07
PROVIDERS: PCP Student in an Organized Health Care Education/Training Program; Visit Provider Student in an Organized Health Care Education/Training Program
DX: I12.9 Hypertensive chronic kidney disease with stage 1 through stage 4 chronic kidney disease, or unspecified chronic kidney disease (principal); N18.32 Chronic kidney disease, stage 3b; M79.89 Other specified soft tissue disorders; R93.1 Abnormal findings on diagnostic imaging of heart and coronary circulation; I35.1 Nonrheumatic aortic (valve) insufficiency; I34.0 Nonrheumatic mitral (valve) insufficiency; I31.39 Other pericardial effusion (noninflammatory)
CPT/HCPCS: 93306

== ENCOUNTER 2024-03-17 12:22 | Outpatient (CLI) | payer MEDICARE, SELFPAY ==
--- NOTE | ~2024-03-17 | XR_ITS ---
EXAMINATION: XR_[id number]_CR DATE: 03/17/2024 12:52 INDICATION: Limited range of motion. Inability to lift chin. TECHNIQUE: 4 views of cervical spine on 5 radiographs were obtained. COMPARISON: Cervical spine radiographs 08/29/2023, MRI 06/03/2023 FINDINGS: There is 24 degrees levoscoliosis of cervicothoracic spine. There are changes of anterior f usion procedures at C3-C4, C4-C5, and C5-C6 with interbody devices. There is an anterior plate with s crews at C3-C4. There are laminectomies at C3 and C4. There is mild chronic anterior wedging of C7 ve rtebral body. There is multilevel facet joint osteoarthritis, severe in lower lumbar spine. There is mild central canal stenosis at C3-C4 with posterior decompression. No prevertebral soft tissue swelli ng. IMPRESSION: 1. Anterior fusion procedures from C3-C4 through C5-C6. 2. Cervicothoracic levoscoliosis. Reviewed, dictated and finalized at location E.
== END 2024-03-17 12:23 | disposition home or self-care (01) ==
PROVIDERS: PCP Student in an Organized Health Care Education/Training Program; Visit Provider Neurological Surgery
DX: M41.83 Other forms of scoliosis, cervicothoracic region (principal); Z98.1 Arthrodesis status
CPT/HCPCS: 72040

== ENCOUNTER 2024-06-03 08:26 | Outpatient (CLI) | payer MEDICARE, SELFPAY ==
[2024-06-03 09:25] LABS: Albumin Level 4.3 g/dL (3.5-5.1); Anion Gap 12 mmol/L (4-12); Blood Urea Nitrogen 27 mg/dL (7-17); Calcium 9.1 mg/dL (8.4-10.2); Carbon Dioxide 21 mmol/L (22-30); Chloride 104 mmol/L (98-107); Estimated Glomerular Filt Rate 40; Glucose 107 mg/dL (65-110); Phosphorus 3.5 mg/dL (2.5-4.5); Potassium 4.4 mmol/L (3.4-5.0); Sodium 137 mmol/L (137-145)
[2024-06-03 10:42] LABS: Creatinine Urine 116.8 mg/dL; Total Protein Urine Random 7 mg/dL; Ur Ttl Prot Creatinine Ratio 0.06 mg/mg (0-0.20)
[2024-06-03 11:12] LABS: Parathyroid Intact 34.2 pg/mL (14.5-75.2)
[2024-06-03 11:16] LABS: Vitamin D 25 Hydroxy 31.4 ng/mL
== END 2024-06-03 08:27 | disposition home or self-care (01) ==
PROVIDERS: PCP Student in an Organized Health Care Education/Training Program; Visit Provider Internal Medicine Nephrology
DX: I12.9 Hypertensive chronic kidney disease with stage 1 through stage 4 chronic kidney disease, or unspecified chronic kidney disease (principal); N18.32 Chronic kidney disease, stage 3b; D64.9 Anemia, unspecified; E55.9 Vitamin D deficiency, unspecified; N25.81 Secondary hyperparathyroidism of renal origin; Z79.899 Other long term (current) drug therapy
CPT/HCPCS: 36415; 80069; 82306; 82570; 83970; 84156

== ENCOUNTER 2024-06-18 08:34 | Outpatient (CLI) | payer MEDICARE, SELFPAY ==
[2024-06-18 09:23] LABS: Immature Reticulocyte Fraction 11.4 % (3.0-15.9); Reticulocyte Hemoglobin Conten 32.6 pg (28.2-36.6); Reticulocyte Percent 1.36 % (0.7-4.3); Reticulocytes Absolute 0.06 10^6/uL (0.02-0.10)
[2024-06-18 09:42] LABS: Transferrin 305 mg/dL (206-381)
== END 2024-06-18 08:35 | disposition home or self-care (01) ==
LOC: ANHLAB 08:42
PROVIDERS: PCP Student in an Organized Health Care Education/Training Program; Visit Provider Student in an Organized Health Care Education/Training Program
DX: D64.9 Anemia, unspecified (principal); I10 Essential (primary) hypertension; Z79.899 Other long term (current) drug therapy
CPT/HCPCS: 36415; 84466; 85046

== ENCOUNTER 2024-12-05 14:55 | Outpatient (CLI) | payer MEDICARE, SELFPAY ==
--- OUTSIDE RECORDS SUMMARY | 2024-12-05 15:02 | XMS_ITS | Encounter Summary ---
Author Organization [facility] Health Address [address] [place] [address] Care Team Providers Care Tipple Oiler Name Role Phone Roberto Garcia MD Primary Care Provider [phone] Encounter Details Date Type Department Care Team (Late st Contact Info) Description 01/02/2006 [facility] Outpatient Visit [facility] DEFAULT [address] [place] [address] Abner Alexis MD [address] [facility] [address] [place], [place] [id number] Social History Tobacco Use Types Packs/Day Years Used Date Smoking Tobacco: Never Assessed Sex and Gender Information Value Date Recorded Sex Assigned at Not on file Gender Identity Not on file Sexual Orientation Not on file documented as of this encounter Plan of Treatment Not on file documented as of this encounter Visit Diagnoses Not on filedocumented in this encounter Care Teams Tipple Oiler Relationship Specialty Start Date End Date Roberto Garcia MD [address] [place] [address] [address] [place] [address] PCP - General Internal Medicine 07/10/12 documented as of this encounter
--- OUTSIDE RECORDS SUMMARY | 2024-12-05 15:02 | XMS_ITS | Clinical Summary ---
Author Organization [facility] Address [address], [place] [address] Phone Care Team Providers Care Anvil Worker Name Role Phone DanielgamalielakirawillieVinh Gwen GOFF Primary Care Provider + Allergies Active Allergy Reactions Criticality Noted Date Comments Amlodipine 12/20/2021 Other reaction(s): Leg Pain Codeine Influenza Vaccines Penicillins Rash Low Procaine Quinidine Tramadol 07/04/2021 Other reaction(s): Seizure Medications Medication Sig Dispensed Refills Start Date End Date Status nizatidine (AXID) 150 MG capsule 1 tab/cap qday 4 10/19/2016 Active naproxen sodium (ALEVE) 220 MG tablet as directed 0 04/16/2016 Ac tive Ferrous Sulfate Dried ER (SLOW FE) 160 (50 Fe) MG tablet controlled-release 2 tabs/caps qday 0 04/16/2016 Active diazePAM (VALIUM) 5 MG tablet Take 5 mg by mouth 3 (three) times a day if needed 2 05/16/2019 Active levothyroxine (SYNTHROID, LEVOTHROID) 100 MCG tablet Take 100 mcg by mouth 1 (one) time each day 0 06/26/2019 Active piroxicam (FELDENE) 10 MG capsule TK 1 C PO BID 08/09/2020 Active levothyroxine (SYNTHROID) 112 MCG tablet 01/19/2021 Active omeprazole (PriLOSEC) [address] capsule Take by mouth 1 (one) time each day 01/09/2021 Active cholecalciferol (VITAMIN D-3) 25 MCG (1000 UT) tablet Take by mouth Activ e Cartia XT 120 MG 24 hr capsule Take 120 mg by mouth 1 (one) time each day 01/12/2022 Active HYDROcodone-acetaminop hen (NORCO) 5-325 MG per tablet 02/06/2022 Active olmesartan (BENICAR) 20 MG tablet 12/20/2021 Active ondansetron ODT (ZOFRAN-ODT) 4 MG dispersible tablet DISSOLVE 1 TABLET IN MOUTH EVERY 8 HOURS NEEDED FOR NAUSEA 02/09/2022 Active Active Problems Problem Noted Date Diagnosed Date Acute cystitis without hematuria 08/01/2021 Increased frequency of urination 08/01/2021 Carpal tunnel syndrome 08/12/2020 Degeneration of intervertebral disc 08/12/2020 Disorder of sacrum 08/12/2020 Disorder of shoulder 08/12/2020 Disorder of trunk 08/12/2020 Enthesopathy of hip region 08/12/2020 Implantation of joint prosthesis 08/12/2020 Localized, primary osteoarth ritis of the pelvic region and thigh 08/12/2020 Low back pain 08/12/2020 Partial thickness rotator cuff tear 08/12/2020 Postoperative follow-up visit 08/12/2020 Radiotherapy follow-up 08/12/2020 Shoulder joint pain 08/12/2020 Disease 08/12/2020 Joint finding 08/12/2020 Sacroiliac joint pain 07/01/2019 Spinal stenosis of lumbar region 07/01/2019 Chronic kidney disease, stage 3 (moderate) 10/04 Abnormal result of kidney function study 016 Essential (primary) hypertension 04/16/2016 Other specified hypothyroidism 04/16/2016 Gastro-esophageal reflux disease without esophag itis 04/16/2016 Osteoarthritis 04/16/2016 Other specified anemia 04/16/2016 Cervical spondylosis without myelopathy 07/12/20 12 Degeneration of lumbar or lumbosacral interverte bral disc 05/06/2010 Immunizations Name Administration Dates Next Due Sars-cov-2, Unspecified 01/08/2021 Family History Medical History Relation Comments Cerebrovascular accident Mother Diabetes mellitus Mother Diabetes mellitus Sibling Kidney disease Neg Hx Kidney stone Neg Hx Relation Status Comments Mother Sibling Social History Tobacco Use Types Packs/Day Years Used Date Smoking Tobacco: Never Smokeless Tobacco: Never Tobacco Cessation:Counseling Given: Not Answered Alcohol Use Standard Drinks/Week Comments No 0 (1 standard drink = 0.6 oz pur e alcohol) Sex and Gender Information Value Date Recorded Sex Assigned at Not on file Gender Identity Not on file Sexual Orientation Not on file Last Filed Vital Signs Vital Sign Reading Time Taken Comments Blood Pressure 132/76 09/13/2022 11:35 AM TERMITE CONTROL TECHNICIAN Pulse - - Temperature 36.6 C (97.9 F) 09/13/2022 11:35 AM TERMITE CONTROL TECHNICIAN Respiratory Rate 18 09/13/2022 11:35 AM TERMITE CONTROL TECHNICIAN Oxygen Saturation - - Inhaled Oxygen Concentration - - Weight 83 kg (183 lb) 09/13/2022 11:35 AM TERMITE CONTROL TECHNICIAN Height 162.6 cm (5' 4 ) 09/13/2022 11:35 AM TERMITE CONTROL TECHNICIAN Body Mass Index 31.41 09/13/2022 11:35 AM TERMITE CONTROL TECHNICIAN Plan of Treatment Health Maintenance Due Date Last Done Comments Pneumococcal PPSV23/PCV13 65 + Years / High and Highest Risk (1 of 4 - PCV) 1951 Influenza Vaccine (#1) 2024 Care Teams Anvil Worker Relationship Specialty Start Date End Date Vinh Resendez DO [address] [place] [id number] PCP - General Family Medicine 08/10/21
--- OUTSIDE RECORDS SUMMARY | 2024-12-05 15:02 | XMS_ITS | Referral Summary ---
Author Organization [facility] Address [address] [place] [place] [address] Care Team Providers Care Anvilsmith Name Role Phone Roberto Garcia MD Primary Care Provider [phone] Source Comments [facility],non-owned Affiliates and Associated Physician Practices is amultiple site organization consisting of ambulatory clinics and hospital sitesin [place], [place], [place] and [place]. This disclosure is being madepursuant to the Care Everywhere program and may not contain all information available regarding this patient. Last updated 18.[facility] Allergies Active Allergy Reactions Criticality Noted Date Comments Codeine 07/12/2012 Propoxyphene 07/12/2012 Penicillins 07/12/2012 Medications * Be aware that medications may not be up to date on this document. Alwaysverify current medications with the patient. Medication Sig Dispensed Refills Start Date End Date Status levothyroxine (SYNTHROID) 75 MCG tablet Active omeprazole (PRILOSEC) 20 MG capsule Active piroxicam (FELDENE) 10 MG capsule Take 1 Cap by mouth 2 times daily. 180 Cap 3 12/29/2013 Active diazepam (VALIUM) 5 MG tabletIndications:Musc le Spasm Take 1 Tab by mouth 3 times daily as needed. Indications: Muscle Spasm 270 Tab 1 09/10/2014 Active Active Problems Problem Noted Date Diagnosed Date Cervical spondylosis without myelopathy 07/12/20 12 Degeneration of lumbar or lumbosacral interverte bral disc 05/06/2010 Social History Tobacco Use Types Packs/Day Years Used Date Smoking Tobacco: Never Smokeless Tobacco: Never Alcohol Use Standard Drinks/Week Comments No 0 (1 standard drink = 0.6 oz pur e alcohol) Sex and Gender Information Value Date Recorded Sex Assigned at Not on file Gender Identity Not on file Sexual Orientation Not on file Last Filed Vital Signs Vital Sign Reading Time Taken Comments Blood Pressure 102/72 08/14/2012 10:53 AM MOHEL Pulse 68 08/14/2012 10:53 AM MOHEL Temperature - - Respiratory Rate - - Oxygen Saturation - - Inhaled Oxygen Concentration - - Weight 77.1 kg (170 lb) 08/14/2012 10:53 AM MOHEL Height 162.6 cm (5' 4 ) 08/14/2012 10:53 AM MOHEL Body Mass Index 29.18 08/14/2012 10:53 AM MOHEL Plan of Treatment Not on file Care Teams Anvilsmith Relationship Specialty Start Date End Date Roberto Garcia MD [address] [place], [place] [id number] [place] [address] PCP - General Internal Medicine 07/10/12
--- OUTSIDE RECORDS SUMMARY | 2024-12-05 15:02 | XMS_ITS | Clinical Summary ---
Author Organization [facility] Address [address] [place] [address] Care Team Providers Care Machine Tool Technician Instructor Name Role Phone Vinh Resendez Primary Care Provider + Allergies Active Allergy Reactions Criticality Noted Date Comments Amlodipine Leg Pain 12/20/2021 Codeine Unknown 03/10/2016 Influenza Vaccines Rash Low 12/24/2023 Penicillins Unknown 03/10/2016 Procaine Unknown 03/10/2016 Quinidine Unknown 03/10/2016 Tramadol Seizure 07/04/2021 Medications vitamin D3, cholecalciferol, 1000 UNIT Tab tablet Active methocarbamol (ROBAXIN) 500 MG tablet Take 1 tablet (500 mg total) by mouth 3 (three) times daily as needed. 09/06/20 23 Active furosemide (LASIX) 20 MG tabletIndications: Leg swelling Take 1 tablet (20 mg total) by mouth daily. 30 tablet 2 01/15/20 24 Active piroxicam (FELDENE) 10 MG capsuleIndications :Other chronic pain take 1 capsule by mouth twice daily 90 capsule 1 07/04/20 24 Active omeprazole (PRILOSEC) 20 MG capsuleIndications :Gastro-esophageal reflux disease without esophagitis Take 1 capsule by mouth once daily 90 capsule 1 07/30/20 24 Active levothyroxine (SYNTHROID) 112 MCG tabletIndications: Other specified hypothyroidism Take 1 tablet (112 mcg total) by mouth every morning. FOR 14 DAYS 90 tablet 3 10/31/19 25 Active olmesartan (BENICAR) 20 MG tabletIndications: Gastro-esophageal reflux disease without esophagitis TAKE 1/2 TABLET(10 MG) BY MOUTH DAILY 45 tablet 12/05/19 25 Active olmesartan (BENICAR) 20 MG tablet Take 0.5 tablets (10 mg total) by mouth daily. 05/01/20 24 025 Discontinued Active Problems Problem Noted Date Diagnosed Date Trochanteric bursitis of left hip 08/08/2022 Osteoarthritis of knee 02/10/2022 Arthralgia of right knee 01/13/2022 Pelvic pain 08/01/2021 Urinary frequency 08/01/2021 Acute cystitis without hematuria 08/01/2021 Hip pain 05/27/2021 Carpal tunnel syndrome 08/12/2020 Degeneration of intervertebral disc 08/12/2020 Disorder of sacrum 08/12/2020 Disorder of shoulder 08/12/2020 Enthesopathy of hip region 08/12/2020 Incomplete tear of rotator cuff 08/12/2020 Joint replaced by other means 08/12/2020 Low back pain 08/12/2020 Primary localized osteoarthritis of pelvic regio n and thigh 08/12/2020 Shoulder joint pain 08/12/2020 Spinal stenosis in cervical region 07/01/2019 Spinal stenosis of lumbar region 07/01/2019 Sacroiliac joint pain 07/01/2019 Stage 3b chronic kidney disease ([facility]/HCC HHS/HCC ) 10/04/2016 Essential (primary) hypertension 04/16/2016 Gastro-esophageal reflux disease without esophag itis 04/16/2016 Osteoarthrosis 04/16/2016 Other specified anemias 04/16/2016 Other specified hypothyroidism 04/16/2016 Renal function test abnormal 04/16/2016 Cervical spondylosis without myelopathy 07/12/20 12 Degeneration of lumbar or lumbosacral interverte bral disc 05/06/2010 Resolved Problems Problem Noted Date Diagnosed Date Resolved Date Other ill-defined condition 08/12/2020 12/20/2021 Radiotherapy follow-up 08/12/202005/30 Encounters Date Type Department Care Team Description 11/20/2024 Telephone [facility] Family & Internal Medicine [address] [phone] Vinh Resendez, DO Information 11/17/2024 Scan HEALTH INFO SRVCS Scanned, Doc [facility] 10/31/2024 Telephone [facility] Family & Internal Medicine [address] [phone] Vinh Resendez, DO Medication Problem 10/21/2024 Telephone [facility] Family & Internal Medicine [address] [phone] Vinh Resendez, DO Advice from Last 3 Months Immunizations Name Administration Dates Next Due PFIZER COVID-19 (ORIGINAL FO RMULATION, PURPLE CAP) mRNA, LNP-S, PF, 30 MCG/0.3 ML DOSE 09/05/2021,11/29/2020,11/08/2020 Family History Medical History Relation Comments Lung Disease Brother Thyroid Disease Daughter Heart Disease Father Diabetes Mother Hypertension Mother Relation Status Comments Brother Daughter Alive Father Mother Social History Tobacco Use Types Packs/Day Years Used Date Smoking Tobacco: Former Cigarettes 1 1 0 03/30/1977 - 03/30/1978 Smokeless Tobacco: Never Alcohol Use Standard Drinks/Week Comments Never 0 (1 standard drink = 0.6 oz pur e alcohol) PHQ-2 Answer Date Recorded Patient Health Questionnaire-2 Score 0 06/25/2024 Comments No Sex and Gender Information Value Date Recorded Sex Assigned at Not on file Legal Sex Female 2:53 AM CDT Gender Identity Not on file Sexual Orientation Not on file Last Filed Vital Signs Vital Sign Reading Time Taken Comments Blood Pressure 132/80 06/25/2024 12:00 PM CDT Pulse 83 06/25/2024 12:00 PM CDT Temperature 36.6 C (97.9 F) 06/25/2024 12:00 PM CDT Respiratory Rate 16 06/25/2024 12:00 PM CDT Oxygen Saturation 97% 06/25/2024 12:00 PM CDT Inhaled Oxygen Concentration - - Weight 90 kg (198 lb 8 oz) 06/25/2024 12:00 PM C DT Height 160 cm (5' 3 ) 06/25/2024 12:00 PM CDT Body Mass Index 35.16 06/25/2024 12:00 PM CDT Plan of Treatment Upcoming Encounters Date Type Department Care Team (Late st Contact Info) Description 12/23/2024 11:40 AM CDT Office Visit [facility] Family & Internal Medicine [facility] [address] [place] [address] Vinh Resendez DO [address] [place] [address] Health Maintenance Due Date Last Done Comments Annual Medicare Wellness Visit 2011 Pneumococcal Vaccine: 65+ Years (1 of 1 - PCV) 2011 COVID-19 Vaccine (4 - 2023-2 5 season) 2024 09/05/2021, 11/29/2020, 11/08/2020 Influenza Adult (#1) 2024 PHQ-2 (Physician Sheridan) 10/01/2024 06/25/2024 RSV Immunization or 60+ Years (1 - 1-dose 75+ series) 12/23/2024 Postponed from 08/06 (Patient Refused) DTaP, Tdap and Td Vaccines ( 1 - Tdap) 01/12/2099 Postponed from 08/06 (Patient Refused) Dexa Scan (General) 01/12/2099 Postpone d from 2011 (Patient Refused) Zoster Vaccines (1 of 2) 01/12/2099 Pos tponed from 1996 (Patient Refused) Hepatitis C Completed 06/20/2023 Meningococcal B Vaccine Aged Out No l onger eligible based on patient's age to complete this topic Meningococcal Vaccine Aged Out No ghassan brice eligible based on patient's age to complete this topic RSV Immunizations Under 20 Months Aged Out No longer eligible b ased on patient's age to complete this topic Procedures Procedure Name Priority Date/Time Associated Diagnosis Comments HEP C SCANNED ORDERS Routine 06/20/2023 from Last 3 Months or Most Recently Relevant to Health Maintenance Results * HEP C SCANNED ORDERS (06/20/2023) [facility] Scanned SCANNING Final Resu lt [facility] ONBASE from Last 3 Months or Most Recently Relevant to Health Maintenance Insurance MEDICARE [facility] Care Teams Machine Tool Technician Instructor Relationship Specialty Start Date End Date Vinh Resendez DO [address] [place] [id number] PCP - General FAMILY PRACTICE 05/27/21
--- OUTSIDE RECORDS SUMMARY | 2024-12-05 15:02 | XMS_ITS | Patient Health Summary ---
Author Organization [facility] Address [address] [place] [address] Care Team Providers Care Tierce Filler Name Role Phone Roberto Garcia MD Primary Care Provider [phone] Note from [facility] [place],non-owned Affiliates and Associated Physician Practices is amultiple site organization consisting of ambulatory clinics and hospital sitesin [place] and [place]. This disclosure is being madepursuant to the Care Everywhere program and may not contain all information available regarding this patient. Last updated 18.[facility] Allergies * Codeine * Propoxyphene * Penicillins Medications * Be aware that medications may not be up to date on this document. Alwaysverify current medications with the patient. * levothyroxine (SYNTHROID) 75 MCG tablet * omeprazole (PRILOSEC) 20 MG capsule * piroxicam (FELDENE) 10 MG capsule(Started 12/29/2013) Take 1 Cap by mouth 2 times daily. 3 refills left * diazepam (VALIUM) 5 MG tablet(Started 09/10/2014) Take 1 Tab by mouth 3 times daily as needed. Indications: Muscle Spasm 1 refill left Active Problems Problem Noted Date Diagnosed Date [...] Comments Blood Pressure 102/72 08/14/2012 10:53 AM MIXING PICKER TENDER Pulse 68 08/14/2012 10:53 AM MIXING PICKER TENDER Temperature - - Respiratory Rate - - Oxygen Saturation - - Inhaled Oxygen Concentration - - Weight 77.1 kg (170 lb) 08/14/2012 10:53 AM MIXING PICKER TENDER Height 162.6 cm (5' 4 ) 08/14/2012 10:53 AM MIXING PICKER TENDER Body Mass Index 29.18 08/14/2012 10:53 AM MIXING PICKER TENDER Procedures * XR CERVICAL SPINE FLEX EXT ONLY(Performed 07/22/2012) Performed for Cervical spondylosis without myelopathy * MRI LUMBAR SPINE WO CONTRAST(Performed 07/22/2012) Performed for Back pain * MRI CERVICAL SPINE WO CONTRAST(Performed 02/09/2012) Results * XR CERVICAL SPINE FLEX AND EXT 2 VIEW (07/22/2012) Anatomical Region Laterality Modality Spine Other Abner Alexis MD DIAGNOSTIC IMAGING O RDERABLES * MRI SPINE LUMBAR NON CONTRAST (07/22/2012) Anatomical Region Laterality Modality Spine Other Abner Alexis MD MR ORDERABLES * MRI SPINE CERVICAL NON CONTRAST (02/09/2012) Anatomical Region Laterality Modality Pelvis Other Abner Alexis MD MR ORDERABLES Care Teams Tierce Filler Relationship Specialty Start Date End Date Roberto Garcia MD [address] [place] [address] [address] [place] [address] PCP - General Internal Medicine 07/10/12
--- OUTSIDE RECORDS SUMMARY | 2024-12-05 15:02 | XMS_ITS | Clinical Summary ---
Author Organization [facility] Address [address] [place] [address] Care Team Providers Care Health Care Assistant Name Role Phone Roberto Garcia MD Primary Care Provider [phone] Source Comments [facility],non-owned Affiliates and Associated Physician Practices is amultiple site organization consisting of ambulatory clinics and hospital sitesin [place], [place]. This disclosure is being madepursuant to the Care Everywhere program and may not contain all information available regarding this patient. Last updated 18.[facility] Allergies Active Allergy Reactions Criticality Noted Date [...] Comments Blood Pressure 102/72 08/14/2012 10:53 AM [employer]IST[employer] Pulse 68 08/14/2012 10:53 AM [employer] ASSISTANT Temperature - - Respiratory Rate - - Oxygen Saturation - - Inhaled Oxygen Concentration - - Weight 77.1 kg (170 lb) 08/14/2012 10:53 AM [employer] ASSISTANT Height 162.6 cm (5' 4 ) 08/14/2012 10:53 AM [employer] ASSISTANT Body Mass Index 29.18 08/14/2012 10:53 AM [employer] ASSISTANT Plan of Treatment Health Maintenance Due Date Last Done Comments BONE DENSITY TESTING 1945 MEDICARE AWV 12 MONTHS 1945 HEPATITIS C SCREENING 08/01/1964 DTAP/TDAP/TD VACCINES (1 - Tdap) 1965 PNEUMOCOCCAL VACCINE 50+ (1 of 1 - PCV) 1996 ZOSTER VACCINE (1 of 2) 1996 Respiratory Syncytial Virus (RSV) Vaccine Pt: or over 60 yrs (1 - 1-dose 75+ series) 2021 COVID-19 VACCINE ( - 2023-2 5 season) 2024 INFLUENZA VACCINE (#1) 2024 DEPRESSION SCREENING 10/01/2024 HEPATITIS B VACCINE Aged Out No longe r eligible based on patient's age to complete this topic HIB VACCINE Aged Out No longer eligi ble based on patient's age to complete this topic HPV VACCINE Aged Out No longer eligi ble based on patient's age to complete this topic MENINGOCOCCAL (Group B) VACCINE Aged Out No longer eligible based on patient's age to complete this topic MENINGOCOCCAL VACCINE Aged Out No ghassan brice eligible based on patient's age to complete this topic Care Teams Health Care Assistant Relationship Specialty Start Date End Date Roberto Garcia MD [address] [place], [place] [address] [place] [address] PCP - General Internal Medicine 07/10/12
--- OUTSIDE RECORDS SUMMARY | 2024-12-05 15:02 | XMS_ITS | Continuity of Care Document ---
Author Organization [facility] Address [address] [place] [address] Phone Care Team Providers Care Space Operations Name Role Phone Rafa PT, DPT, Kip Unavailable Unavaila ble Procedures Procedure Date Neuromuscular Re-Ed Therapeutic Exercise Neuromuscular Re-Ed Therapeutic Exercise Neuromuscular Re-Ed Therapeutic Exercise Neuromuscular Re-Ed Therapeutic Exercise Manual Therapy Hot or Cold Pack Therapeutic Activities Therapeutic Exercise Neuromuscular Re-Ed Hot or Cold Pack Doc neg elder mal no plan PT Evaluation Low Complexity Neuromuscular Re-Ed Therapeutic Exercise Advance Directives Directive Yes / No Effective Date File Name No Information Encounters Encounter Description Practice Location Reason(s) For Visit Diagnoses Date Provider Providers Copied on Encounter [facility], [place], [place], [id number], tel:[phone] Carmen No Information 2 Rafa Shin. . [facility], [address], [place], [place], [id number], [place] tel:[phone] Carmen No Information 2 Rafa Shin. . Referring Provider: Rene Dutta, [facility] [address], [place], [address]. tel:[phone] [facility] [address] [place], [place] [address], [place], [place], [id number], [place] tel:[phone] Carmen No Information 2 Diegoin Chang. . Referring Provider: Rene Dutta, [facility] [address], [place], [address]. tel:[phone] [facility] [address], [place], [place], [id number], [place] tel:[phone] Carmen No Information 2 Rafa Shin. . Referring Provider: Rene Dutta, [facility] [address], [place], [address]. tel:[phone] [facility] [address] [place] [address], [id number], tel:[phone] Carmen No Information 2 Rafa Shin. . Referring Provider: Rene Dutta, [facility] [address], [place], [address]. tel:[phone] [facility] [address] [place] [address], [place], [place], [id number], [place] tel:[phone] Carmen No Information 2 Roger Azul. [address], [place], [address], . tel: [phone] Referring Provider: Rene Dutta, [facility] [address], [place], [address]. tel:[phone] [facility] [address], [id number], [place] tel:[phone] Carmen No Information 2 Rafa Shin. . Referring Provider: Rene Dutta, [facility] [address], [place], [address]. tel:[phone] Family History Family Member Type Diagnosis Age At Onset No Information Payers Payer name Insurance type Covered libertarian ID Authoriza tion(s) Medicare [place] MB [id number] [facility] [id number] Social History Type Description Quantity Date Captured Comments Sex Female Smoking Status No Information Chief Complaint And Reason For Visit No Information Reason For Referral Reason For Referral No Information History Of Present Illness Encounter Date Complaint History Of Prese nt Illness No Information Functional Status Date Functional Assessmen t No Information Instructions Date Instruction Additional Infor mation Prescribed activity/exercise edu cation Related to Overweight Dietary needs education Related to Overweight Assessments Type Assessment Date No Information Patient Care Teams Name Effective Dates (start - stop) Status Members No Information
--- OUTSIDE RECORDS SUMMARY | 2024-12-05 15:02 | XMS_ITS | Data Portability ---
Author Organization [place] [facility], Main Office Address [address] [place] [address] Care Team Providers Care Airline Hostess Name Role Phone ARIEL QUINTANILLA Primary Care Provider ARIEL QUINTANILLA Referring Provider Assessment Encounter Date Assessment Date Assessment LastModified by Organization Details LastModified Time 12/05/2022 12/05/2022 Her incision is clean sutures out it spread open just a little bit. I taped it tight and I will see her back in a week to check her wound. This should heal uneventfully hopefully the some of the numbness and tingling resolved if not the wrist is either from her neck or from neuropathy. [email or web address] Not available 12/05/2022 14:12:38 04/06/2023 04/06/2023 The patient has left hip pain likely related to scarring and trochanteric bursitis left hip. Her x-rays today of the left hip show total hip arthroplasty in good alignment without evidence of loosening or failure of the implant everything looks good here. At her request under sterile conditions I injected the patient's left hip trochanteric bursa in the office with 4 cc 0.5% ropivacaine and 20 mg of Kenalog. Patient tolerated procedure well. We will give it a month let her recover a little more from her recent neck surgery and see how the shot works she will see Dr. rPo back at that time if she continues to have discomfort or develops significant groin pain or thigh pain we will do further workup and evaluation. The patient voiced understanding agrees above plan she will call for any further problems difficulties or questions. Not available 04/06/2023 14:55:36 05/07/2023 05/07/2023 HPI: Patient returns. She is 1 year out from right total knee arthroplasty. Her knee is doing well. She is having no complaints with regard to that. She had neck surgery done in January of this year and is still recovering from this. Physical exam: 77-year-old female she is walking with a cane. She has a well-healed incision over the right knee. Range motion is from 0-130 degrees. She has excellent stability in both flexion extension. Impression: Patient is 1 year out from right total knee arthroplasty. She is having no problems with the knee and is happy with her results. We will plan on seeing her back in another 5 years for routine x-ray surveillance or sooner if she has problems. Long-term risk of infection was discussed. 20 minutes was spent in treatment patient with more than half of this in [id number] conversation marita Not available 05/07/2023 16:33:10 11/17/2024 11/17/2024 The patient has moderately severe primary osteoarthritis of the right hip joint she also has severe degenerative changes lumbar spine with pain in the right sacroiliac region and right hip trochanteric bursitis. We talked about all 3 issues today she has a pain management appointment upcoming but this is not until January of this year she wanted relief now. She will continue with piroxicam we will also give her a course of oral prednisone pills to take, she will take these then resume the piroxicam. We talked about cortisone injections she wanted to try injections in the right sacroiliac bursa and also the right hip trochanteric bursa today. She declined an order for an intra-articular injection into the right hip joint. We also talked about total hip arthroplasty in detail today she declined she would rather see how she gets by with conservative measures, states that at her age with other recent large surgical intervention she does not think she can handle another joint replacement. She has also had her right knee replaced. At her request under sterile conditions I injected the patient's right sacroiliac bursa and the patient's right hip trochanteric bursa in the office with 4 cc 0.5% bupivacaine and 20 mg of Kenalog each for a total of 2 injections. The patient tolerated the procedures well. I offered her formal physical therapy she declined with the weather and other things going on she states she would rather avoid getting out to go to therapy. She wants to see how the shots worked 1st and she will keep her upcoming pain management appointment. If her back pain continues or worsens we will get an MRI scan to look at the degree of nerve root impingement and stenosis. I will see her back in 6 weeks if her symptoms suddenly worsen or change she is instructed to call. She voiced understanding and agreed with the above plan. Not available 11/17/2024 12:31:47 Plan of Treatment Reminders Order Date Submit Date Provider Last Modified By Organization Details Last Modified Time Details Appointments Any 5 2024 02:30P TONY Abbott Not available Not available Not available Lab None recorded. Referral None recorded. Procedures injection /aspirati on joint/bur sa (PROC) 2024 025 [email or web address] In-Office Order, Internal Use Only DO Not Attach Compendium DO Not Attach Compendium, Do Not Delete/merge, [id number] 11/17/2024 12:24:28 injection /aspirati on joint/bur sa (PROC) 2024 025 [email or web address] In-Office Order, Internal Use Only DO Not Attach Compendium DO Not Attach Compendium, Do Not Delete/merge, [id number] 11/17/2024 12:24:27 injection /aspirati on joint/bur sa (PROC) - in office procedure , administe red by provider 2022 023 [email or web address] In-Office Order, Internal Use Only DO Not Attach Compendium DO Not Attach Compendium, Do Not Delete/merge, [id number] 04/06/2023 14:20:35 Surgeries None recorded. Imaging XR, lumbar spine 2024 025 [email or web address] [facility] [place], [address], [place], [address], 11/17/2024 12:33:12 XR, knee 2022 023 [email or web address] [facility] [place], [address], [place], [address], 05/08/2023 19:12:27 XR, hip + pelvis, unilatera l 2022 023 [email or web address] [facility] [place], [address], [place], [address], 04/06/2023 15:17:02 Medication Orders bupivacai ne HCl 0.5 % (5 mg/mL) injection solution [address] [facility], [address] [place], [place], [id number], 11/17/2024 12:35:08 Kenalog 10 mg/mL suspensio n for injection [address] [facility], [address] [place] [address], [id number], 11/17/2024 12:35:08 prednison e 10 mg tablets in a dose pack [address] [facility], [address] [place] [address], [id number], 11/17/2024 12:35:08 bupivacai ne HCl 0.5 % (5 mg/mL) injection solution [address] [facility]93, [address] [place] [address], [id number], 11/17/2024 12:35:08 Kenalog 10 mg/mL suspensio n for injection [address] [facility]138, [address] [place] [address], [id number], 11/17/2024 12:35:08 Kenalog 10 mg/mL suspensio n for injection 2022 023 [email or web address] [facility], [address] [place], [address], 05/07/2023 15:56:37 ropivacai ne (PF) 5 mg/mL (0.5 %) injection solution 2022 023 [email or web address] [facility], [address] [place], [address], 11/17/2024 11:52:39 Patient TargetsNo targets recorded. Patient InstructionsNo instructions recorded. Reason for Referral None Reported. Results Created Date Observation Date Name Description Value Unit Range Abnormal Flag Note LastModifiedBy Organization Detail LastModifiedTime 10/16/19 elect romyo gram + nerve condu ction study No observ ation record ed. [id number] Not Available 11/29/2022 13:54:08 10/16/19 23 XR, hand No observ ation record ed. [id number] [facility] [place] [address], [place], [address], 11/29/2022 13:54:08 10/16/19 23 08/23/2022 elect romyo gram + nerve condu ction study No observ ation record ed. [id number] Not Available 11/29/2022 13:54:08 04/06/20 23 XR, hip + pelvi s, unila teral No observ ation record ed. [email or web address] [facility] [place] [address], [place], [address], 04/06/2023 14:56:21 05/07/20 23 XR, knee No observ ation record ed. [email or web address] [facility] [place] [address], [place], [address], 05/07/2023 16:31:54 11/17/19 25 XR, lumba r spine No observ ation record ed. [email or web address] [facility] [place] [address], [place], [address], 11/17/2024 12:33:11 Result Notes None recorded. Problems Name Problem SNOMED Code Status Onset Date Resolution Date Notes Provider Name and Address Organization Details Recorded Time Disorder of shoulder 453978063 Active Not Available [facility] 3 13:52:27 Disorder of trunk 010556014 Active Not Available [facility] 3 13:52:27 Disorder of sacrum 64869912 Active Not Available [facility] 3 13:52:27 Spinal stenosis of lumbar region 92097603 Active 2018 Not Available [facility] 3 13:52:27 Radiothera py follow-up 535530150 Active Not Available [facility] 3 13:52:27 Localized, primary osteoarthr itis of the pelvic region and thigh 960199673 Active Not Available [facility] 3 13:52:27 Sacroiliac joint pain 555081398 Active 2018 Not Available [facility] 3 13:52:27 Partial thickness rotator cuff tear 178257310 Active Not Available [facility] 3 13:52:28 Osteoarthr itis of knee 479878495 Active 2021 Not Available [facility] 3 13:52:28 Shoulder joint pain 569838664 Active Not Available [facility] 3 13:52:28 Low back pain 280425770 Active Not Available [facility] 3 13:52:28 Enthesopat hy of hip region 91678362 Active Not Available [facility] 3 13:52:28 Trochanter ic bursitis of left hip 6136705434512 03 Active 2021 Not Available [facility] 3 13:52:28 Osteoarthr itis of left knee joint 3086874275328 09 Active 2021 Not Available [facility] 3 13:52:28 Osteoarthr itis 509241524 Active Not Available [facility] 3 13:52:28 Pain of right knee joint 0252273387861 00 Active 2021 Not Available [facility] 3 13:52:28 Hip pain 45574508 Active Not Available [facility] 3 13:52:28 Carpal tunnel syndrome 17012431 Active Not Available [facility] 3 13:52:28 Degenerati on of interverte bral disc 25950890 Active Not Available [facility] 3 13:52:28 Spinal stenosis in cervical region 03040108 Active 2018 Not Available [facility] 3 13:52:28 Pain in right hip joint 8671983979966 02 Active 2024 JOEY Khoury [place] [facility] 5 11:44:55 Trochanter ic bursitis of right hip 7873715149710 00 Active 2024 Marie wilde [place] [facility] 5 12:19:36 Pain in right sacroiliac joint 7736723785012 9107 Active 2024 Marie wilde, [place] [facility] 5 12:19:46 Osteoarthr itis of right hip joint 5838353940369 07 Active 2024 TONY Lara [address] [place] [address], [place] [address], [place], [address] , [place] [facility] 5 12:33:56 Problem Notes None recorded. Procedures Surgical History Date Name Laterality Status Provider Name and Address Organization Details Recorded Time Rotator cuff surgery completed Not Available [facility] 11/29/2022 13:52:02 Cholecystectomy completed Not Available [facility] 11/29/2022 13:52:02 total replacement of left hip joint completed Claire Hough CNA [place] [facility] 11/17/2024 11:53:25 Neck completed Claire Hough CNA [place] [facility] 11/17/2024 11:53:34 Knee completed Claire Hough [facility]NA [place] [facility] 11/17/2024 11:53:44 Imaging Results Imaging Date Name Status LastModified by Organization Details LastModified Time 10/16/2022 electromyogram + nerve conduction study completed [id number] Information not available 11/29/2022 13:54:08 10/16/2022 XR, hand completed [id number] [facility] [place] [address], [place], [address], 11/29/2022 13:54:08 08/23/2022 electromyogram + nerve conduction study completed [id number] Information not available 11/29/2022 13:54:08 04/06/2023 XR, hip + pelvis, unilateral completed [email or web address] [facility] [place] [address], [place], [address], 04/06/2023 14:56:21 05/07/2023 XR, knee completed [email or web address] [facility] [place] [address], [place], [address], 05/07/2023 16:31:54 11/17/2024 XR, lumbar spine completed [email or web address] [facility] [place] [address], [place], [address], 11/17/2024 12:33:11 Procedure Notes None recorded. Medical Equipment None Reported. Allergies Allergen ID Allergen Name Allergen Category Reaction Reaction Severity Criticality Documentation Date Start Date Code Code System Note Provider Name and Address Organization Details Recorded Time 76049 quinidine Not available Not available Not available Not available 11/29/2022 9068 RxNorm Not Available [facility] 13:54:04 44495 procaine medicatio n Not available Not available Not available 11/29/2022 8701 RxNorm Not Available [facility] 13:54:04 40555 Product containin g penicilli n (product) medicatio n Not available Not available Not available 11/29/2022 79810 8001 SNOMED Not Available [facility] 3 13:54:04 19573 influenza A (H5N1) virus vaccine monoval (18 yr +) Not available Not available Not available Not available 11/29/2022 47944 UNK Not Available [facility] 3 13:54:04 12176 Darvocet- N medicatio n Not available Not available Not available 11/29/2022 08772 UNK Not Available [facility] 3 13:54:04 71995 codeine medicatio n Not available Not available Not available 11/29/2022 2670 RxNorm Not Available [facility] 3 13:54:05 39933 tramadol medicatio n seizure Not available Not available 11/17/2024 16460 RxNorm JOEY Khoury[place] [facility] [place] [facility] 5 11:51:51 Medications Name Sig Start Date Stop Date Status Note LastModified by Organization Details LastModified Time losartan 50 mg tablet TAKE 1 TABLET BY MOUTH ONCE DAILY 11/17 completed Not Available Not Available Not Available methocarb melanie 500 mg tablet TAKE 1 TABLET BY MOUTH THREE TIMES DAILY NEEDED FOR MUSCLE SPASM 11/17 completed Not Available Not Available Not Available Proctosol HC 2.5 % rectal cream with applicato r 06/26 completed Not Available Not Available Not Available prednison e 10 mg tablet TAKE 1 TABLET BY MOUTH THREE TIMES DAILY FOR 3 DAYS AND THEN 1 TWICE DAILY FOR 2 DAYS AND THEN 1 ONCE DAILY FOR 1 DAY active Not Available Not Available No t Available clindamyc in HCl 300 mg capsule 06/26 completed Not Available Not Available Not Available hydrocodo ne 5 mg-acetam inophen 325 mg tablet 05/15 completed Not Available Not Available Not Available fluconazo le 200 mg tablet 09/08 completed Not Available Not Available Not Available ondansetr on HCl 4 mg tablet 06/26 completed Not Available Not Available Not Available bupivacai ne HCl 0.5 % (5 mg/mL) injection solution Take 20 mg by injectio n route. 2024 active Not Available Not Available Not Avai lable atenolol 25 mg tablet 05/02 completed Not Available Not Available Not Available amlodipin e 2.5 mg tablet 02/10 completed Not Available Not Available Not Available amlodipin e 5 mg tablet 02/17 completed Not Available Not Available Not Available ciproflox acin 500 mg tablet TAKE 1 TABLET BY MOUTH TWICE DAILY 07/11 completed Not Available Not Available Not Available sulfameth oxazole 800 mg-trimet hoprim 160 mg tablet TAKE 1 TABLET BY MOUTH EVERY 12 HOURS FOR 7 DAYS 09/08 completed Not Available Not Available Not Available tramadol 50 mg tablet 09/08 completed Not Available Not Available Not Available levothyro xine 75 mcg tablet 05/02 completed Not Available Not Available Not Available prednison e 10 mg tablets in a dose pack Take 1 tab by mouth, 3 times a day for 3 daysTake 1 tab by mouth 2 times a day for 2 daysTake 1 tab by mouth once a day for 1 day 2024 active Not Available Not Available Not Avai lable meloxicam 7.5 mg tablet TAKE 1 TABLET BY MOUTH ONCE DAILY 05/15 completed Not Available Not Available Not Available levothyro xine 100 mcg tablet TK 1 T PO QD 02/17 completed Not Available Not Available Not Available levothyro xine 88 mcg tablet 05/02 completed Not Available Not Available Not Available methocarb melanie 750 mg tablet TAKE 1 TABLET BY MOUTH THREE TIMES DAILY NEEDED FOR MUSCLE SPASM 05/07 completed Not Available Not Available Not Available Kenalog 10 mg/mL suspensio n for injection Take 20 mg by injectio n route. 2024 active [facility]: [phone] Not Available Not Available Not Available amitripty line 10 mg tablet 06/26 completed Not Available Not Available Not Available Cartia XT 120 mg capsule,e xtended release 02/10 completed Not Available Not Available Not Available hydrocodo ne 7.5 mg-acetam inophen 325 mg tablet 06/26 completed Not Available Not Available Not Available cephalexi n 500 mg capsule TAKE 1 CAPSULE BY MOUTH EVERY 12 HOURS 05/15 completed Not Available Not Available Not Available triamcino lone acetonide 0.1 % topical ointment 06/26 completed Not Available Not Available Not Available losartan 25 mg tablet TK 1 T PO QD 02/17 completed Not Available Not Available Not Available betametha sone dipropion ate 0.05 % topical cream 06/26 completed Not Available Not Available Not Available omeprazol e 20 mg capsule,d elayed release TAKE 1 CAPSULE BY MOUTH ONCE DAILY active Not Available Not Available No t Available piroxicam 10 mg capsule TAKE 1 CAPSULE BY MOUTH TWICE DAILY active Not Available Not Available No t Available lisinopri l 5 mg tablet 06/26 completed Not Available Not Available Not Available furosemid e 20 mg tablet 11/17 completed Not Available Not Available Not Available methylpre dnisolone 4 mg tablets in a dose pack FOLLOW PACKAGE DIRECTIO NS 11/17 completed Not Available Not Available Not Available ondansetr on 4 mg disintegr ating tablet 05/15 completed Not Available Not Available Not Available cefdinir 300 mg capsule 02/10 completed Not Available Not Available Not Available losartan 100 mg tablet TAKE 1/2 (ONE-MAXIMINO F) TABLET BY MOUTH ONCE DAILY 05/07 completed Not Available Not Available Not Available diazepam 5 mg tablet TAKE 1 TABLET BY MOUTH THREE TIMES DAILY NEEDED 02/10 completed Not Available Not Available Not Available levothyro xine 112 mcg tablet TAKE 1 TABLET BY MOUTH EVERY DAY IN THE MORNING active Not Available Not Available No t Available oxycodone 5 mg tablet TAKE 1 TABLET BY MOUTH EVERY 6 HOURS NEEDED FOR PAIN 05/07 completed Not Available Not Available Not Available olmesarta n 20 mg tablet TAKE ONE-HALF TABLET BY MOUTH ONCE DAILY. active Not Available Not Available No t Available cyclobenz aprine 5 mg tablet 02/17 completed Not Available Not Available Not Available Prilosec OTC 20 mg tablet,de layed release Take by oral route. 02/17 completed Not Available Not Available Not Available ORTHOVISC 30 mg/2 mL intra-art icular syringe Injectio ns given in the office by the doctor. 01/13 completed [facility]: [id number] 001 Not Available Not Available Not Available nitrofura ntoin monohydra te/macroc rystals 100 mg capsule TAKE 1 CAPSULE BY MOUTH TWICE DAILY 09/08 completed Not Available Not Available Not Available iron 02/17 completed Not Available Not Available Not Available Tylenol 2018 active Not Available Not Available Not Avai lable Vitamin D3 2020 active Not Available Not Available Not Avai lable lidocaine (PF) 10 mg/mL (1 %) injection solution In office injectio n administ ered by the provider 09/08 completed [facility]: [phone] Not Available Not Available Not Available Xarelto 10 mg tablet 06/27 completed Not Available Not Available Not Available ropivacai ne (PF) 5 mg/mL (0.5 %) injection solution in office 11/17 completed [facility] [id number] 4 Not Available Not Available Not Available Eliquis 2.5 mg tablet TAKE 1 TABLET BY MOUTH TWICE DAILY X 12 DAYS 05/15 completed Not Available Not Available Not Available Stimulant Laxative Plus 8.6 mg-50 mg tablet TAKE 1 TABLET BY MOUTH TWICE DAILY NEEDED FOR CONSTIPA TION FOR 7 DAYS 11/17 completed Not Available Not Available Not Available ID NOW COVID-19 Test Kit TEST DIRECTED TODAY 05/15 completed Not Available Not Available Not Available BinaxNOW COVID-19 Ag Self Test kit Use as Directed on the Package 05/07 completed Not Available Not Available Not Available Vitals Date Recorded Body mass index (BMI) Body height Body weight Provider Name and Address Organization Details Last Updated DateTime 10/16/2022 31.9 kg/m2 160.02 cm 58230.63 g Not Available [facility] 11/29/2022 13:52:14 Date Recorded Body height Body mass index (BMI) Body weight Provider Name and Address Organization Details Last Updated DateTime 12/05/2022 160.02 cm 30.1 kg/m2 78330.7 g BAUTISTA Tadeo [employer] 12/05/2022 14:04:08 Date Recorded Body height Body mass index (BMI) Body weight Provider Name and Address Organization Details Last Updated DateTime 04/06/2023 162.56 cm 30.9 kg/m2 71860.63 g BAUTISTA Tadeo [employer] [facility] 04/06/2023 14:18:53 Date Recorded Body height Provider Name an d Address Organization Details Last Updated DateTime 05/07/2023 162.56 cm BAUTISTA Tadeo [facility] 05/07/2023 15:56:25 Date Recorded Body height Body mass index (BMI) Body weight Provider Name and Address Organization Details Last Updated DateTime 11/17/2024 162.56 cm 30.9 kg/m2 16944.63 g Claire Hough [employer] [facility] 11/17/2024 11:50:48 Social History Question Answer Notes LastModified by Organizat ion Details LastModified Time Tobacco Smoking Status Former Smoker quit 1977 Not Available [facility] 11/29/2022 13:52:01 What Is Your Level Of Alcohol Consumption? None [id number] Information not available 11/29/2022 What Is Your Level Of Caffeine Consumption? Moderate [id number] Information not available 11/29/2022 How Much Tobacco Do You Chew? None [id number] Information not available 11/29/2022 In The 14 Days Before Symptom Onset, Have You Had Close Contact With A Laboratory-confir med COVID-19 While That Case Was Ill? No [id number] Information not available 11/29/2022 In The 14 Days Before Symptom Onset, Have You Had Close Contact With A Person Who Is Under Investigation For COVID-19 While That Person Was Ill? No [id number] Information not available 11/29/2022 Which Illicit Or Recreational Drugs Have You Used? No [id number] Information not available 11/29/2022 Do You Or Have You Ever Used E-cigarettes Or Vape? Never Used Electronic Cigarettes [id number] Information not available 11/29/2022 Do You Or Have You Ever Used Smokeless Tobacco? Never Used Smokeless Tobacco [id number] Information not available 11/29/2022 Sex: Unknown Functional Status None recorded. Mental Status None recorded. Family History Relationship Description Onset Age of this Age Resolved Age Notes LastModified by Organization Details LastModified Time Father Heart disease [id number] Not available 11/29/2022 13:52:03 Mother Family history of stroke [id number] Not available 11/29/2022 13:52:03 Mother Hypertensive disorder [id number] Not available 11/29/2022 13:52:03 Mother Diabetes mellitus [id number] Not available 11/29/2022 13:52:03 Mother Kidney disease [id number] Not available 11/29/2022 13:52:03 Medical History Condition Response ARTHRITIS Y USE OF NSAIDS Y THYROID DISEASE Y HYPERTENSION Y OSTEOPOROSIS Y URINARY/BLADDER/KIDNEY PROBLEMS Y Gynecological HistoryNo gynecological history recorded. Obstetrics History GPAL:G 0 P 0 0 0 0 Past Encounters Encounter ID Performer Location Encounter Start Date Encounter Closed Date Diagnosis/Indication Diagnosis SNOMED-CT Code Diagnosis ICD10 Code Diagnosis Note [id number] _[facility]_ DEFAULT_1 _1 , 02/17/2021 00:00:00 02/17/2021 13:19:07 [id number] _[facility] IGRATION_ DEFAULT_1 _1 , 05/12/2021 00:00:00 05/12/2021 13:34:57 [id number] [facility] [address] [place] [address] 05/16/2021 00:00:00 05/16/2021 12:50:51 [id number] [facility] [address] [place] [address] 06/27/2021 00:00:00 06/27/2021 11:15:11 [id number] [facility] [address] [place] [address] 07/05/2021 00:00:00 07/05/2021 14:44:49 [id number] [facility] [address] [place] [address] 07/11/2021 00:00:00 07/11/2021 11:04:47 [id number] [facility] [address] [place] [address] 08/22/2021 00:00:00 08/22/2021 11:24:57 [id number] _SABRINA IGRATION_ DEFAULT_1 _1 , 09/08/2021 00:00:00 09/08/2021 12:21:33 [id number] [facility] [address] [place] [address] 10/11/2021 00:00:00 10/11/2021 15:40:50 [id number] [facility] [address] [place] [address] 01/13/2022 00:00:00 01/22/2022 20:45:16 [id number] [facility] [address] [place] [address] 02/10/2022 00:00:00 02/11/2022 09:27:24 [id number] [facility] [address] [place] [address] 04/28/2022 00:00:00 04/28/2022 12:38:13 [id number] [facility] [address] [place] [address] 05/15/2022 00:00:00 05/15/2022 14:37:57 [id number] [facility] [address] [place] [address] 05/29/2022 00:00:00 05/29/2022 14:36:54 [id number] [facility] [address] [place] [address] 08/08/2022 00:00:00 08/08/2022 15:00:56 [id number] [facility] [address] [place] [address] 10/16/2022 00:00:00 10/16/2022 11:08:58 [id number] Bulmaro Pro MD [facility] [address] [place] [address] 12/05/2022 13:59:15 12/05/2022 15:41:12 Carpal tunnel syndrome 01231710 G56.03 [id number] TONY Lara [facility] [address] [place] [address] 04/06/2023 14:16:01 04/06/2023 14:48:23 Carpal tunnel syndrome [id number] G56.03 Trochanter ic bursitis of left hip [id number] 76091 M70.62 [id number] TONY Joseph [facility] [address] [place] [address] 05/07/2023 15:50:21 05/07/2023 17:41:31 History of right total knee replacement [id number] Z96.125 [id number] TONY Lara [facility] [address] [place] [address] 11/17/2024 11:30:11 11/17/2024 12:27:57 Pain in right hip joint [id number] 64480 M25.551 Low back pain 623299367 M54.50 Trochanter ic bursitis of right hip 1663311362 65220 M70.61 Pain in ri ght sacroiliac joint 5992434309 5169639 M53.3 Osteoarthr itis of right hip joint 6286283659 08444 M16.11 Health Concerns Section Related Observation LastModified by Organization Detai ls LastModified Time None Recorded Concern Status LastModified by Organization Details LastModified Time None Recorded Advance Directives Directive None Recorded Payers Encounter Date Sequence Insurance Name Policy Number Policy Diaz Covered Member ID Diaz Member ID Guarantor Name 12/05/2022 1 [place] Celia Patterson [id number] Celia Patterson 12/05/2022 2 [place] [id number] Celia Patterson [id number] Celia Patterson 04/06/2023 1 [place] Patterson [id number] Celia Patterson 04/06/2023 2 [place] [id number] Celia Dykesritt [id number] Celia Dykesritt 05/07/2023 1 [place] Celia Dykesritt [id number] Celia Dykesritt 05/07/2023 2 [place] [id number] Celia Dykesritt [id number] Celia Dykesritt 11/17/2024 1 [place] Celia Dykesritt [id number] Celia Dykesritt 11/17/2024 2 [place] [id number] Celia Dykesritt [id number] Celia Dykesritt Notes Date Note Type Note Provider Name and Address Organization Details Recorded Time 12/05/2022 text/html Patient returns status post carpal tunnel release left. The wound split open a little bit numbness and tingling she persists she has not got complete relief. She does have cervical problems as well. Bulmaro Pro MD [address] [place] [address], [phone], [facility] [employer] 12/05/2022 14:14:43 04/06/2023 text/html Patient returns complaining of left hip pain mostly over the lateral portion in the greater trochanteric region. She also reports some chronic groin and anterior thigh pain we will get new x-rays today to make sure everything looks okay she has a left total hip arthroplasty that is been in there for several years now she is not sure exactly when but states it was well before the COVID pandemic. She denies any trauma or injury she has a walker for support a lot of this though is due to the fact that she recently had C-spine fusion and is going through rehab and therapy for this. Her left hip is tender laterally over the trochanteric region she denies any fevers chills night sweats no constitutional symptoms no weakness in the hip no radicular pain down the leg no erythema heat effusion or signs of infection. She has had some chronic issues with the hip by her report and has had previous cortisone injections that gave her mild temporary relief. She comes in today requesting repeat cortisone injection left trochanteric bursa. TONY Lara [address], [place], [address], [email or web address] [facility] [employer] 04/06/2023 14:56:57 11/17/2024 text/html Patient returns with new problems today. She is having aching pain in the right trochanteric region as well as the right lower lumbar region around the sacroiliac joint. Denies any specific trauma or injury states a lot of her pain started when she bent over to lift something since that time she has had aching pain that she describes about a 10 on a scale of 1-10 at times. Sometimes she can hardly move. She had some Valium left over from another old prescription she took this which helped her sleep at least for a couple of nights. She does take piroxicam daily but lately her pain has been so significant she can not really get around. She denies any new bowel or bladder symptoms she has had some mild urinary leakage for about a year now. She she also has some neuropathy in both feet she thinks all this is due to the fact that she had multiple neck C-spine surgical interventions she walks with a very stooped forward gait has to use a cane or a walker for support. Has a hard time getting around because of these issues. Lately her back pain has been really restricting her. She denies any weakness or new neurologic deficits she also has some right groin pain. She has had a previous left total hip arthroplasty her right hip x-rays today do show pretty significant narrowing with advanced degenerative changes. She states at her age she is not interested in further major surgeries she comes in today requesting evaluation treatment of her right hip and right low back pain as described. New past medical history sheet was reviewed and signed on the intake sheet of today's date drug allergies current medications family social history previous surgical history 10 point review of systems was reviewed and discussed in detail today with the patient. TONY Lara [address], [place], [address], [employer] 11/17/2024 12:34:45 OBGyn Episode No OBEpisode recorded.
[2024-12-05 16:25] LABS: Albumin Level 4.4 g/dL (3.5-5.1); Anion Gap 13 mmol/L (4-12); Blood Urea Nitrogen 35 mg/dL (7-17); Calcium 9.1 mg/dL (8.4-10.2); Carbon Dioxide 21 mmol/L (22-30); Chloride 103 mmol/L (98-107); Estimated Glomerular Filt Rate 46; Glucose 90 mg/dL (65-110); Phosphorus 3.7 mg/dL (2.5-4.5); Potassium 4.6 mmol/L (3.4-5.0); Sodium 137 mmol/L (137-145)
[2024-12-05 16:45] LABS: Creatinine Urine 78.4 mg/dL
[2024-12-05 16:55] LABS: Total Protein Urine Random < 5 mg/dL; Ur Ttl Prot Creatinine Ratio < 0.06 mg/mg (0-0.20)
== END 2024-12-05 14:56 | disposition home or self-care (01) ==
PROVIDERS: PCP Student in an Organized Health Care Education/Training Program; Visit Provider Internal Medicine Nephrology
DX: I12.9 Hypertensive chronic kidney disease with stage 1 through stage 4 chronic kidney disease, or unspecified chronic kidney disease (principal); N18.32 Chronic kidney disease, stage 3b
CPT/HCPCS: 36415; 80069; 82570; 84156

== ENCOUNTER 2025-03-10 07:20 | Day surgery (SDC) | payer MEDICARE, SELFPAY ==
[2025-02-24 14:22] VITALS: BMI 33.5
--- NOTE | ~2025-03-10 | XR_ITS ---
XR fluoroscopy no charge Indication: Bilateral L3, L4 and L5 medial branch/dorsal nerve block TECHNIQUE: Fluoroscopy used during Bilateral L3, L4 and L5 medial branch/dorsal nerve block performe d by [Karel Lazaro MD] on 03/10/2025. 12 seconds of fluoroscopy with 12 fluoroscopic images ca ptured. FINDINGS: Correlate with procedure note. IMPRESSION: Fluoroscopy used during Bilateral L3, L4 and L5 medial branch/dorsal nerve block. Reviewed, dictated and finalized at location [] IMPRESSION: Fluoroscopy used during Bilateral L3, L4 and L5 medial branch/dorsa l nerve block.
--- NOTE | 2025-03-10 06:32 | WPDHPUPDATE1 ---
History and Physical Update Update Date/Time: 03/10/25 06:32 History and Physical has been reviewed, including an updated exam of the patient. There are NO changes in the patient's condition. Risks, benefits, and alternatives have been discussed and questions answered. Patient agrees to proceed with procedure.
--- NOTE | 2025-03-10 06:33 | W.PM.PROC2 ---
Procedure Note - Detailed Date of Procedure 03/10/25 Pre-op Diagnosis Lumbosacral Spondylosis w/o Myelopathy or Post-op Diagnosis Same Procedure Performed Diagnostic bilateral Lumbar Medial Branch/Dorsal Ramus Blocks at L3, L4, L5 Treating the bilateral L4-5, L5-S1 Facet Joints Under Fluoroscopic Guidance and with Contrast Control. ( 4 levels blocked). Surgeon Karel Lazaro MD Link Knitting Machine Operator None. Anesthesia Local Description of Procedure INFORMED CONSENT: Risks, benefits and alternatives to the procedure were discussed in detail with the patient who expressed explicit understanding and consent to proceed. Patient was informed verbally and in written form regarding the risks associated with the procedure including the low risk of serious infection, bleeding/bruising, allergic reaction, nerve or organ injury, paralysis, procedural site pain or discomfort, worsening pain and/or mobility, failure to treat and/or disfigurement. The patient expressed explicit understanding and consent to proceed. All materials required for the procedure were available prior to procedure start. Site and side were marked prior to procedure and confirmed in the presence of the patient. PROCEDURE IN DETAIL: The patient was brought to the procedural suite and placed in the prone position. Patient was made comfortable with use of pillows under the head/chest, hips and ankles. Skin overlying the injection site on the affected side(s) was prepared broadly with ChloraPrep applicator and draped in a sterile manner. Aseptic technique was used throughout. The endplates of the vertebral bodies at the site(s) of interest were aligned in the AP view. Ipsilateral oblique angulation was utilized to optimize visualization of the intersection between the superior articulating process and transverse process at each target site. Local anesthesia was established by infiltration with approximately 5 mL of 1% lidocaine via a 1-1/2 inch 27-gauge needle. A 25-gauge 3.5 inch Quincke spinal needle was advanced until the needle tip contacted periosteum at the target site, right L3. Lateral view was utilized to confirm the appropriate placement of the needle tip just anterior to the facet line and superior to the pedicle. In the Lateral view, 0.25 mL of Omnipaque 300 contrast medium was injected after negative aspiration for CSF, blood or other bodily fluid, showing appropriate extra-articular spread of contrast without evidence of intravascular, foraminal or intrathecal placement. A 0.5 mL solution of 0.5% PF bupivacaine was injected after negative repeat aspiration. Appropriate spread of the injectate was confirmed with washout of previously injected contrast. No parasthesias were elicited. Needle was removed completely intact without difficulty. The same exact procedure was repeated for all remaining levels on the ipsilateral side, right L4, L5 medial branches/dorsal ramus, modified as necessary to accommodate for the new target location with identical findings and results and no evidence of complication. The same exact procedure was repeated for all remaining levels on the contralateral side, left L3, L4, L5 medial branches/dorsal ramus, modified as necessary to accommodate for the new target location with identical findings and results and no evidence of complication. Images were saved and documented in the patient chart. Patient's skin was cleaned and sterile bandage applied. The patient tolerated the procedure well. The patient was transported to the recovery area in stable condition where they were observed for an appropriate amount of time prior to discharge, without evidence of complication. Patient was instructed on the appropriate completion of a pain diary over the next 12-24 hours. The patient was instructed to avoid excessive activity for the next 48 hours, including climbing and frequent use of stairs. Showers only for 48 hours. They were instructed not to drive or operate heavy machinery for 24 hours. They are to monitor for severe headaches, fevers, chills, night sweats, erythema/swelling at the site or any other signs of infection, bleeding/bruising, bowel or bladder changes as well as new pain, weakness or numbness in the upper or lower extremity. Should they notice these changes, they are instructed to call our office immediately or report directly to the nearest Emergency Department if no answer or if after posted office hours. COMPLICATIONS: None COMMENTS: None CONTRAST WASTED: 28.5mL Omnipaque 300. Complications No immediate complications Condition Stable Disposition Same day [facility] Billing Surgery - Charge Forward: Surgery Billing
--- OUTSIDE RECORDS SUMMARY | 2025-03-10 07:37 | XMS_ITS | Encounter Summary ---
Author Organization [facility] Health Address [address] [facility] [place] [address] Care Team Providers Care Cage Operator Name Role Phone Roberto Garcia MD Primary Care Provider [phone] Encounter Details Date Type Department Care Team (Late st Contact Info) Description 01/02/2006 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
--- OUTSIDE RECORDS SUMMARY | 2025-03-10 07:38 | XMS_ITS | Clinical Summary ---
Author Organization [facility] Address [address] [place] [address] Phone Care Team Providers Care Radio Interference Supervisor Name Role Phone DanielelizabethVinh Gwen GOFF Primary Care Provider + Allergies Active Allergy Reactions Criticality Noted Date Comments Amlodipine 12/20/2021 Other reaction(s): Leg Pain Codeine Influenza Vaccines Penicillins Rash Low Procaine Quinidine Tramadol 07/04/2021 Other reaction(s): Seizure Medications nizatidine (AXID) 150 MG capsule 1 tab/cap qday 4 7 Active naproxen sodium (ALEVE) 220 MG tablet as directed 0 6 Active Ferrous Sulfate Dried ER (SLOW FE) 160 (50 Fe) MG tablet controlled-relea se 2 tabs/caps qday 0 6 Active diazePAM (VALIUM) 5 MG tablet Take 5 mg by mouth 3 (three) times a day if needed 2 9 Active levothyroxine (SYNTHROID, LEVOTHROID) 100 MCG tablet Take 100 mcg by mouth 1 (one) time each day 0 9 Active piroxicam (FELDENE) 10 MG capsule TK 1 C PO BID 0 Active levothyroxine (SYNTHROID) 112 MCG tablet 1 Active omeprazole (PriLOSEC) [address] capsule Take by mouth 1 (one) time each day 1 Active cholecalciferol (VITAMIN D-3) 25 MCG (1000 UT) tablet Take by mouth Active Cartia XT 120 MG 24 hr capsule Take 120 mg by mouth 1 (one) time each day 2 Active HYDROcodone-acet aminophen (NORCO) 5-325 MG per tablet 2 Active olmesartan (BENICAR) 20 MG tablet 2 Active ondansetron ODT (ZOFRAN-ODT) 4 MG dispersible tablet DISSOLVE 1 TABLET IN MOUTH EVERY 8 HOURS NEEDED FOR NAUSEA 2 Active Active Problems Problem Noted Date Diagnosed [...] or lumbosacral interverte bral disc 05/06/2010 Immunizations Immunization Administration Dates Next Due Sars-cov-2, Unspecified 01/08/2021 [...] drink = 0.6 oz pur e alcohol) Comments Unknown Sex and Gender Information Value Date Recorded Sex Assigned at Not on file Legal Sex Female 8:17 AM [email or web address] Gender Identity Not on file Sexual Orientation Not on file Last Filed Vital Signs Vital Sign Reading Time Taken Comments Blood Pressure 132/76 09/13/2022 11:35 AM BUMPER STRAIGHTENER Pulse - - Temperature 36.6 C (97.9 F) 09/13/2022 11:35 AM BUMPER STRAIGHTENER Respiratory Rate 18 09/13/2022 11:35 AM BUMPER STRAIGHTENER Oxygen Saturation - - Inhaled Oxygen Concentration - - Weight 83 kg (183 lb) 09/13/2022 11:35 AM BUMPER STRAIGHTENER Height 162.6 cm (5' 4) 09/13/2022 11:35 AM BUMPER STRAIGHTENER Body Mass Index 31.41 09/13/2022 11:35 AM BUMPER STRAIGHTENER Plan of Treatment Health Maintenance Due Date Last Done Comments Pneumococcal PPSV23/PCV13 65 + Years / High and Highest Risk (1 of 5 - PCV) 1964 Influenza Vaccine (Season Ended) 2025 Insurance MEDICARE [facility] Care Teams Radio Interference Supervisor Relationship Specialty Start Date End Date Vinh Resendez DO [address] [place] [id number] PCP - General Family Medicine 08/10/21
--- OUTSIDE RECORDS SUMMARY | 2025-03-10 07:38 | XMS_ITS | Clinical Summary ---
Author Organization [facility] [employer] Address [address] [place] [address] Care Team Providers Care Merchant Seaman Name Role Phone Roberto Garcia MD Primary Care Provider [phone] Source Comments [facility],non-owned Affiliates and Associated Physician Practices is amultiple site organization consisting of ambulatory clinics and hospital sitesin [place], [place], [place] and [place]. This disclosure is being madepursuant to the Care Everywhere program and may not contain all information available regarding this patient. Last updated 18.[facility] [employer] Allergies Active Allergy Reactions Criticality Noted Date Comments Codeine 07/12/2012 Propoxyphene 07/12/2012 Penicillins 07/12/2012 Medications * Be aware that medications may not be up to date on this document. Alwaysverify current medications with the patient. levothyroxine (SYNTHROID) 75 MCG tablet Active omeprazole (PRILOSEC) 20 MG capsule Active piroxicam (FELDENE) 10 MG capsule Take 1 Cap by mouth 2 times daily. 180 Cap 3 12/29/2013 Active diazepam (VALIUM) 5 MG tabletIndication s:Muscle Spasm Take 1 Tab by mouth 3 times daily as needed. 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 Gender Identity Not on file Sexual Orientation Not on file Occupation Industry Job Start Date Job End Date RETIRED Not on file Not on file Not on file Last Filed Vital Signs Vital Sign Reading Time Taken Comments Blood Pressure 102/72 08/14/2012 10:53 AM DIRECTOR OF PRIMARY CARE Pulse 68 08/14/2012 10:53 AM DIRECTOR OF PRIMARY CARE Temperature - - Respiratory Rate - - Oxygen Saturation - - Inhaled Oxygen Concentration - - Weight 77.1 kg (170 lb) 08/14/2012 10:53 AM DIRECTOR OF PRIMARY CARE Height 162.6 cm (5' 4) 08/14/2012 10:53 AM DIRECTOR OF PRIMARY CARE Body Mass Index 29.18 08/14/2012 10:53 AM DIRECTOR OF PRIMARY CARE Plan of Treatment Health Maintenance Due Date Last Done Comments BONE DENSITY TESTING 1945 HEPATITIS C SCREENING 08/01/1964 DTAP/TDAP/TD VACCINES (1 - Tdap) 1965 PNEUMOCOCCAL VACCINE 50+ (1 of 1 - PCV) 1996 ZOSTER VACCINE (1 of 2) 1996 Respiratory Syncytial Virus (RSV) Vaccine Pt: or over 60 yrs (1 - 1-dose 75+ series) 2021 COVID-19 VACCINE ( - 2023-2 5 season) 2024 DEPRESSION SCREENING 10/01/2024 INFLUENZA VACCINE (Season Ended) 2025 HEPATITIS B VACCINE Aged Out No longe r eligible based on patient's age to complete this topic HIB VACCINE Aged Out No longer eligi ble based on patient's age to complete this topic HPV VACCINE Aged Out No longer eligi ble based on patient's age to complete this topic MENINGOCOCCAL (Group B) VACC INE SHARED DECISION-MAKING Aged Out No longer eligibl e based on patient's age to complete this topic MENINGOCOCCAL GROUPS A/C/Y/W VACCINE Aged Out No longer eligible b ased on patient's age to complete this topic Insurance MEDICARE [facility] [place] [facility] [employer] [address] [address] Care Teams Merchant Seaman Relationship Specialty Start Date End Date Roberto Garcia MD [address] [place], [place] [address] [place] [address] PCP - General Internal Medicine 07/10/12
--- OUTSIDE RECORDS SUMMARY | 2025-03-10 07:38 | XMS_ITS | Data Portability ---
Author Organization [place] - [facility] [employer], Main Office Address [address] [place] [address] Care Team Providers Care Laboratory Technical Specialist Name Role Phone ARIEL QUINTANILLA Primary Care Provider ARIEL QUINTANILLA Referring Provider [phone] Assessment Encounter Date Assessment Date Assessment LastModified [...] either from her neck or from neuropathy. [email or web address] Not available 12/05/2022 14:12:38 04/06/2023 04/06/2023 The [...] the shot works she will see Dr. Pro back at that time if she continues [...] with more than half of this in [id number] conversation marita Not available 05/07/2023 16:33:10 11/17/2024 [...] Organization Details Last Modified Time Details Appointments None recorded. Lab None recorded. Referral None recorded. Procedures injection/a spiration joint/bursa (PROC) 2024 025 [email or web address] In-Office Order, Internal Use Only DO Not Attach Compendium DO Not Attach Compendium, Do Not Delete/merge, [id number] 5 12:24:28 injection/a spiration joint/bursa (PROC) 2024 025 [email or web address] In-Office Order, Internal Use Only DO Not Attach Compendium DO Not Attach Compendium, Do Not Delete/merge, [id number] 5 12:24:27 injection/a spiration joint/bursa (PROC) - in office procedure, administere d by provider 2022 023 [email or web address] In-Office Order, Internal Use Only DO Not Attach Compendium DO Not Attach Compendium, Do Not Delete/merge, [id number] 3 14:20:35 Surgeries None recorded. Imaging XR, lumbar spine 2024 025 [email or web address] [facility] [place], [address], [place], [address], 5 12:33:12 XR, knee 2022 023 [email or web address] [facility] [place], [address], [place], [address], 3 19:12:27 XR, hip + pelvis, unilateral 2022 023 [email or web address] [facility] [place], [facility], [place], [address], 3 15:17:02 Medication Orders bupivacaine HCl 0.5 % (5 mg/mL) injection solution [address] [facility], [address] [place], [id number], 5 12:35:08 Kenalog 10 mg/mL suspension for injection [address] [facility]58491, [address] [place] [address], [id number], 5 12:35:08 prednisone 10 mg tablets in a dose pack [address] [facility]64181, [address] [place] [address], [id number], 5 12:35:08 bupivacaine HCl 0.5 % (5 mg/mL) injection solution [address] [facility]19785, [address] [place] [id number], 5 12:35:08 Kenalog 10 mg/mL suspension for injection [address] [facility]53219, [address] [place] [address], [id number], 5 12:35:08 Kenalog 10 mg/mL suspension for injection 2022 023 [email or web address] [facility], [address] [place], [address], 3 15:56:37 ropivacaine (PF) 5 mg/mL (0.5 %) injection solution 2022 023 [email or web address] [facility], [address] [facility], [place], [address], 5 11:52:39 Patient TargetsNo targets recorded. Patient InstructionsNo instructions recorded. Reason for Referral None Reported. Results Created Date Observation Date Name Description Value Unit Range Abnormal Flag Note LastModifiedBy Organization Detail LastModifiedTime 10/16/19 elect romyo gram + nerve condu ction study No observ ation record ed. [id number] Not Available 11/29/2022 13:54:08 10/16/19 23 XR, hand No observ ation record ed. [id number] [facility] [place] [address], [place], [address], 11/29/2022 13:54:08 10/16/19 23 08/23/2022 elect romyo gram + nerve condu ction study No observ ation record ed. [id number] Not Available 11/29/2022 13:54:08 04/06/20 23 XR, hip + pelvi s, unila teral No observ ation record ed. [email or web address] [facility] [place] [address], [place], [address], 04/06/2023 14:56:21 05/07/20 23 XR, knee No observ ation record ed. [email or web address] [facility] [place] [address], [place], [address], 05/07/2023 16:31:54 11/17/19 25 XR, lumba r spine No observ ation record ed. [email or web address] [facility] [place] [address], [place], [address], 11/17/2024 12:33:11 Result Notes None recorded. Problems Name Problem SNOMED Code Status Onset Date Resolution Date Notes Provider Name and Address Organization Details Recorded Time Disorder of shoulder 901582711 Active Not Available [facility] 3 13:52:27 Disorder of trunk 699093376 Active Not Available [facility] 3 13:52:27 Disorder of sacrum 12874241 Active Not Available [facility] 3 13:52:27 Spinal stenosis of lumbar region 54771034 Active 2018 Not Available [facility] 3 13:52:27 Radiothera py follow-up 620109820 Active Not Available [facility] 3 13:52:27 Localized, primary osteoarthr itis of the pelvic region and thigh 211510680 Active Not Available [facility] 3 13:52:27 Pain of sacroiliac joint 920463184 Active 2018 Not Available [facility] 3 13:52:27 Partial thickness rotator cuff tear 177010972 Active Not Available [facility] 3 13:52:28 Osteoarthr itis of knee 838200992 Active 2021 Not Available [facility] 3 13:52:28 Shoulder joint pain 934472938 Active Not Available [facility] 3 13:52:28 Low back pain 931895923 Active Not Available [facility] 3 13:52:28 Enthesopat hy of hip region 93311864 Active Not Available [facility] 3 13:52:28 Trochanter ic bursitis of left hip 9942508535876 03 Active 2021 Not Available [facility] 3 13:52:28 Osteoarthr itis of left knee joint 7677545030154 09 Active 2021 Not Available [facility] 3 13:52:28 Osteoarthr itis 590637391 Active Not Available [facility] 3 13:52:28 Pain of right knee joint 1636470325195 00 Active 2021 Not Available [facility] 3 13:52:28 Pain of hip region 16495912 Active Not Available [facility] 3 13:52:28 Carpal tunnel syndrome 95682512 Active Not Available [facility] 3 13:52:28 Degenerati on of interverte bral disc 21921657 Active Not Available [facility] 3 13:52:28 Spinal stenosis in cervical region 14906292 Active 2018 Not Available [facility] 3 13:52:28 Pain of right hip joint 2508270247133 02 Active 2024 Claire Hough SEARCH SPECIALIST null, [place] [facility] 5 11:44:55 Trochanter ic bursitis of right hip 8237450149288 00 Active 2024 Marie Littlejohns null, [place] [facility] 5 12:19:36 Pain in right sacroiliac joint 8461375656962 9107 Active 2024 Marie Littlejohns null, [place] [facility] 5 12:19:46 Osteoarthr itis of right hip joint 6875127480407 07 Active 2024 TONY Lara [address] [place] [address], [place], [address] , [place] [facility] 5 12:33:56 Problem Notes None recorded. Procedures Surgical History Date Name Laterality Status Provider Name and Address Organization Details Recorded Time Rotator cuff surgery completed Not Available [facility] 11/29/2022 13:52:02 Cholecystectomy completed Not Available [facility] 11/29/2022 13:52:02 total replacement of left hip joint completed Claire Hough SEARCH SPECIALIST [place] [facility] 11/17/2024 11:53:25 Neck completed Claire France, SEARCH SPECIALIST [place] [facility] 11/17/2024 11:53:34 Knee completed Claire France, SEARCH SPECIALIST [place] [facility] 11/17/2024 11:53:44 Imaging Results None recorded. Procedure Notes None recorded. Medical Equipment None Reported. Allergies Allergen ID Allergen Name Allergen Category Reaction Reaction Severity Criticality Documentation Date Start Date Code Code System Note Provider Name and Address Organization Details Recorded Time 13057 quinidine Not available Not available Not available Not available 11/29/2022 9068 RxNorm Not Available [facility] 3 13:54:04 56110 procaine medicatio n Not available Not available Not available 11/29/2022 8701 RxNorm Not Available [facility] 3 13:54:04 42215 Product containin g penicilli n (product) medicatio n Not available Not available Not available 11/29/2022 39488 8001 SNOMED Not Available [facility] 3 13:54:04 03986 influenza A (H5N1) virus vaccine monoval (18y up) Not available Not available Not available Not available 11/29/2022 35682 UNK Not Available [facility] 3 13:54:04 53262 Darvocet- N medicatio n Not available Not available Not available 11/29/2022 05300 UNK Not Available [facility] 3 13:54:04 54046 codeine medicatio n Not available Not available Not available 11/29/2022 2670 RxNorm Not Available [facility] 3 13:54:05 11418 tramadol medicatio n seizure Not available Not available 11/17/2024 50372 RxNorm JOEY Khoury, [place] [employer] 5 11:51:51 Medications Name Sig Start Date [...] mg by injectio n route. [address] [facility]: 0003-049 4-20 Not Available Not Available Not Available amitripty [...] the office by the doctor. 01/13 completed [facility]: 55040646 001 Not Available Not Available Not Available [...] administ ered by the provider 09/08 completed [facility]: 0409-427 6 Not Available Not Available Not Available Xarelto 10 mg tablet 06/27 completed Not Available Not Available Not Available ropivacai ne (PF) 5 mg/mL (0.5 %) injection solution in office 11/[address] [facility] 08077-72 4- Not Available Not Available Not Available Eliquis [...] Updated DateTime 10/16/2022 31.9 kg/m2 160.02 cm 98806.63 g Not Available [facility] 11/29/2022 13:52:14 Date Recorded Body height Body mass index (BMI) Body weight Provider Name and Address Organization Details Last Updated DateTime 11/17/2024 162.56 cm 30.9 kg/m2 90998.63 g Claire Hough CNA [employer] [facility] [employer] 11/17/2024 11:50:48 Date Recorded Body height Body mass index (BMI) Body weight Provider Name and Address Organization Details Last Updated DateTime 12/05/2022 160.02 cm 30.1 kg/m2 20855.7 g Yasmeen Armijo [employer] 12/05/2022 14:04:08 Date Recorded Body height Body mass index (BMI) Body weight Provider Name and Address Organization Details Last Updated DateTime 04/06/2023 162.56 cm 30.9 kg/m2 69626.63 g Yasmeen Armijo [employer] [facility] 04/06/2023 14:18:53 Date Recorded Body height Provider Name an d Address Organization Details Last Updated DateTime 05/07/2023 162.56 cm Yasmeen Armijo [employer] 05/07/2023 15:56:25 Social History Question Answer Notes LastModified by [employer] Details LastModified Time Tobacco Smoking Status Former Smoker quit 1977 Not Available [facility] 11/29/2022 13:52:01 What Is Your Level Of Caffeine Consumption? Moderate [id number] Information not available 11/29/2022 How Much Tobacco Do You Chew? None [id number].256205 2120 Information not available 11/29/2022 In The 14 Days Before Symptom Onset, Have You Had Close Contact With A Laboratory-confir med COVID-19 While That Case Was Ill? No [id number].[id number] 5493 Information not available 11/29/2022 In The 14 Days Before Symptom Onset, Have You Had Close Contact With A Person Who Is Under Investigation For COVID-19 While That Person Was Ill? No [id number] 0221 Information not available 11/29/2022 Which Illicit Or Recreational Drugs Have You Used? No [id number] 2130 Information not available 11/29/2022 Sex: Unknown Functional Status Question Answer Note LastModified by [employer] Details LastModified Time What is your level of alcohol consumption? None [id number].[id number] 026 Information not available 11/29/2022 Do you or have you ever used smokeless tobacco? Never used smokeless tobacco MIGRATION.[id number] 026 Information not available 11/29/2022 Do you or have you ever used e-cigarettes or vape? Never used electronic cigarettes MIGRATION.0221634 026 Information not available 11/29/2022 Mental Status None recorded. Family History Relationship Description Onset Age of this Age Resolved Age Notes LastModified by Organization Details LastModified Time Father Heart disease [id number].854 [id number] Not available 11/29/2022 13:52:03 Mother Family history of stroke MIGRATION.168 [id number] Not available 11/29/2022 13:52:03 Mother Hypertensive disorder MIGRATION.893 [id number] Not available 11/29/2022 13:52:03 Mother Diabetes mellitus MIGRATION.415 [id number] Not available 11/29/2022 13:52:03 Mother Kidney disease MIGRATION.405 [id number] Not available 11/29/2022 13:52:03 Medical History Condition Response ARTHRITIS Y THYROID DISEASE Y OSTEOPOROSIS Y URINARY/BLADDER/KIDNEY PROBLEMS Y USE OF NSAIDS Y HYPERTENSION Y Gynecological HistoryNo gynecological history recorded. Obstetrics History GPAL:G 0 P 0 0 0 0 Past Encounters Encounter ID Performer Location Encounter Start Date Encounter Closed Date Diagnosis/Indication Diagnosis SNOMED-CT Code Diagnosis ICD10 Code Diagnosis Note [id number] [facility] _[place]_M IGRATION_ DEFAULT_1 _1 , 02/17/2021 00:00:00 02/17/2021 13:19:07 [id number] Yessi Kenney MD _[place]_ IGRATION_ DEFAULT_1 _1 , 05/12/2021 00:00:00 05/12/2021 13:34:57 [id number] [facility] [place] [address] [place] [address] 05/16/2021 00:00:00 05/16/2021 12:50:51 [id number] TONY L[facility] [place] [address] [place] [address] 06/27/2021 00:00:00 06/27/2021 11:15:11 [id number] [facility] [place] [address] [place] [address] 07/05/2021 00:00:00 07/05/2021 14:44:49 [id number] TONY Lara [facility] [place] [address] [place] [address] 07/11/2021 00:00:00 07/11/2021 11:04:47 [id number] Bulmaro Pro MD [facility] [place] [address] [place] [address] 08/22/2021 00:00:00 08/22/2021 11:24:57 [id number] Yessi Kenney MD _[place]_M IGRATION_ DEFAULT_1 _1 , 09/08/2021 00:00:00 09/08/2021 12:21:33 [id number] Bulmaro Pro MD [facility] [place] [address] [place] [address] 10/11/2021 00:00:00 10/11/2021 15:40:50 [id number] Rene Dutta MD [facility] [place] [address] [place] [address] 01/13/2022 00:00:00 01/22/2022 20:45:16 [id number] Rene Dutta MD [facility] [place] [address] [place] [address] 02/10/2022 00:00:00 02/11/2022 09:27:24 [id number] Rene Dutta MD [facility] [place] [address] [place] [address] 04/28/2022 00:00:00 04/28/2022 12:38:13 [id number] Rene Dutta MD [facility] [place] [address] [place] [address] 05/15/2022 00:00:00 05/15/2022 14:37:57 [id number] Rene Dutta MD [facility] [place] [address] [place] [address] 05/29/2022 00:00:00 05/29/2022 14:36:54 [id number] Bulmaro Pro MD [facility] [place] [address] [place] [address] 08/08/2022 00:00:00 08/08/2022 15:00:56 [id number] Bulmaro Pro MD [facility] [place] [address] [place] [address] 10/16/2022 00:00:00 10/16/2022 11:08:58 [id number] Bulmaro Pro MD [facility] [place] [address] [place] [address] 12/05/2022 13:59:15 12/05/2022 15:41:12 Carpal tunnel syndrome 90879791 G56.03 [id number] Bulmaro Pro MD [facility] [place] [address] [place] [address] 04/06/2023 14:16:01 04/06/2023 14:48:23 Carpal tunnel syndrome 63728234 G56.03 Trochanter ic bursitis of left hip 9940976941 12850 M70.62 [id number] Rene Dutta MD [facility] [place] [address] [place] [address] 05/07/2023 15:50:21 05/07/2023 17:41:31 History of right total knee replacement 7064810651 [id number] Z96.868 [id number] Johnathan Nunez MD [facility] [place] [address] [place] [address] 11/17/2024 11:30:11 11/17/2024 12:27:57 Pain of right hip joint 7244205936 31739 M25.551 Low back pain 234185537 M54.50 Trochanter ic bursitis of right hip 6784339995 28890 M70.61 Pain in ri ght sacroiliac joint 0191459850 3987871 M53.3 Osteoarthr itis of right hip joint 6464005595 20527 M16.11 Health Concerns Section Related Observation LastModified by Organization Detai ls LastModified Time None Recorded Concern Status LastModified by Organization Details LastModified Time None Recorded Advance Directives Directive None Recorded Payers Encounter Date Sequence Insurance Name Policy Number Policy Diaz Covered Member ID Diaz Member ID Guarantor Name 12/05/2022 1 [place] Celia Gaona Patterson [id number] Celia L Patterson 12/05/2022 2 [place] [id number] Celia L Patterson [id number] Celia L Patterson 04/06/2023 1 [place] Cel[place] L Patterson [id number] Celia L Patterson 04/06/2023 2 [place] [id number] Celia L Patterson [id number] Celia L Patterson 05/07/2023 1 [place] Celia L Patterson [id number] Celia L Patterson 05/07/2023 2 [place] [id number] Celia L Patterson [id number] Celia L Patterson 11/17/2024 1 [place] Celia L Patterson [id number] Celia L Patterson 11/17/2024 2 [place] [id number] Celia L Patterson [id number] Celia L Patterson Notes Date Note Type Note Provider Name and Address Organization Details Recorded Time 12/05/2022 text/html Patient returns status post carpal tunnel release left. The wound split open a little bit numbness and tingling she persists she has not got complete relief. She does have cervical problems as well. Bulmaro Pro MD [address] [place] [address], [place] [address], [place], [address], [facility] [employer] [facility] 12/05/2022 14:14:43 04/06/2023 text/html Patient returns complaining [...] TONY Lara [address], [place], [address], [facility] [employer] [facility] 04/06/2023 14:56:57 11/17/2024 text/html Patient returns with [...] today with the patient. TONY Lara [address] [facility], [place] [address], [place], [address], [place] [facility] [employer] 11/17/2024 12:34:45 OBGyn Episode No OBEpisode recorded.
[2025-03-10 07:40] VITALS: BP 138/93; PULSE 90; RESP 18; TEMP 36.5; O2SAT 99
[2025-03-10 08:37] VITALS: BP 174/105; PULSE 104; RESP 26; O2SAT 97
[2025-03-10 08:41] VITALS: BP 177/89; PULSE 96; RESP 26; O2SAT 98
[2025-03-10] MEDS: LIDOCAINE 1% PF INJ 5 ML VIAL INFILTRATE (08:46)
[2025-03-10] MEDS: BUPivacaine HCL 0.5% 10 ML AMP 5 ML INFILTRATE (08:46)
[2025-03-10 08:50] VITALS: BP 156/79; PULSE 92; RESP 18; O2SAT 99
== END 2025-03-10 09:05 | disposition home or self-care (01) ==
LOC: ASC 07:35
PROVIDERS: PCP Student in an Organized Health Care Education/Training Program; Visit Provider Anesthesiology Pain Medicine
PROC: (CPT 64493; principal; 2025-03-10 08:30)
DX: M47.817 Spondylosis without myelopathy or radiculopathy, lumbosacral region (principal); G89.29 Other chronic pain
CPT/HCPCS: 64493 ×2; 64494 ×2; 64495 ×2; 99199

== ENCOUNTER 2025-03-24 11:03 | Outpatient (CLI) | payer MEDICARE, SELFPAY ==
--- NOTE | ~2025-03-24 | MR_ITS ---
MRI of the lumbar spine Clinical History: Spinal stenosis Technique: Axial T2-weighted images, and sagittal T1-weighted, T2-weighted, and T2 fat-sat images wer e acquired. Findings: No fracture seen in the lumbar spine. There is 6 mm retrolisthesis of L1 over L2. No suspic ious bone marrow signal abnormality seen. At L1-L2, there is advanced degenerative disc narrowing. There is mild disc bulge with moderate facet arthropathy. No central canal stenosis. There is severe bilateral neural foraminal narrowing. At L2-L3, there is minimal disc bulge with moderate facet arthropathy. No central canal stenosis. The re is severe right neural foraminal narrowing, and mild left neural foraminal narrowing. At L3-L4, there is mild disc bulge with advanced facet arthropathy. No central canal stenosis. There is moderate right neural foraminal narrowing. Left neural foramen preserved. At L4-L5, there is minimal disc bulge. There is severe facet arthropathy. No central canal stenosis o r neural foraminal narrowing. At L5-S1, there is mild disc bulge and severe facet arthropathy. No central canal stenosis or definit e neural foraminal narrowing. Paravertebral soft tissues are unremarkable. Impression: 6 mm retrolisthesis of L1 over L2. Multilevel neural foraminal narrowing, as detailed above, worst at L1-L2. Reviewed, dictated and finalized at [facility]. Impression: 6 mm retrolisthesis of L1 over L2. Multilevel neural foraminal narrowing, as detailed above, worst at L1-L2.
== END 2025-03-24 11:04 | disposition home or self-care (01) ==
PROVIDERS: PCP Student in an Organized Health Care Education/Training Program; Visit Provider Anesthesiology Pain Medicine
DX: M48.062 Spinal stenosis, lumbar region with neurogenic claudication (principal); M43.16 Spondylolisthesis, lumbar region; M47.816 Spondylosis without myelopathy or radiculopathy, lumbar region
CPT/HCPCS: 72148

== ENCOUNTER 2025-04-07 08:32 | Day surgery (SDC) | payer MEDICARE, SELFPAY ==
[2025-03-31 10:17] VITALS: BMI 32.9
--- NOTE | ~2025-04-07 | XR_ITS ---
INTRAOPERATIVE FLUOROSCOPY: CLINICAL HISTORY: 79 years old Female; DIAG/PROG GRACIELA L3,L4,L5 NERVE BLK PROCEDURE COMMENTS: Limited intraoperative fluoroscopy of the lumbar spine was performed. CUMULATIVE DOSE: 34.5 mGy FLUOROSCOPY TIME: 72.1 seconds FINDINGS/IMPRESSION: Please refer to operative note for further details. Reviewed, dictated and finalized at location A.
--- OUTSIDE RECORDS SUMMARY | 2025-04-07 08:41 | XMS_ITS | Encounter Summary ---
Author Organization [facility] Health Address [address] [place] [address] Care Team Providers Care Dye Range Operator Cloth Name Role Phone Roberto Garcia MD Primary Care Provider [phone] Encounter Details Date Type Department Care Team (Late st Contact Info) Description 01/02/2006 [facility] Outpatient Visit [facility] DEFAULT [address] [place] [address] Abner Alexis MD [address] [facility] [address] [place], [place] [id number] Social History Tobacco Use Types Packs/Day Years Used Date Smoking Tobacco: Never Assessed Comments Unknown Sex and Gender Information Value Date Recorded Sex Assigned at Not on file 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
--- OUTSIDE RECORDS SUMMARY | 2025-04-07 08:41 | XMS_ITS | Clinical Summary ---
Author Organization [facility] Address [address] [place] [address] Care Team Providers Care Laundry Worker Name Role Phone Roberto Garcia MD Primary Care Provider [phone] Source Comments [facility],non-owned Affiliates and Associated Physician Practices is amultiple site organization consisting of ambulatory clinics and hospital sitesin [place], [place], [place] and [place]. This disclosure is being madepursuant to the Care Everywhere program and may not contain all information available regarding this patient. 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 Gender Identity Not on file Sexual Orientation Not on file Occupation Industry Job Start Date Job End Date RETIRED Not on file Not on file Not on file Last Filed Vital Signs Vital Sign Reading Time Taken Comments Blood Pressure 102/72 08/14/2012 10:53 AM AUTO CRANE DRIVER Pulse 68 08/14/2012 10:53 AM AUTO CRANE DRIVER Temperature - - Respiratory Rate - - Oxygen Saturation - - Inhaled Oxygen Concentration - - Weight 77.1 kg (170 lb) 08/14/2012 10:53 AM AUTO CRANE DRIVER Height 162.6 cm (5' 4) 08/14/2012 10:53 AM AUTO CRANE DRIVER Body Mass Index 29.18 08/14/2012 10:53 AM AUTO CRANE DRIVER Plan of Treatment Health Maintenance Due Date [...] age to complete this topic Insurance MEDICARE [facility] [place] [facility] [address] Care Teams Laundry Worker Relationship Specialty Start Date End Date Roberto Garcia MD [address] [place], [place] [address] [place] [address] PCP - General Internal Medicine 07/10/12
--- OUTSIDE RECORDS SUMMARY | 2025-04-07 08:41 | XMS_ITS | Clinical Summary ---
Author Organization [facility] Address [address] [place] [address] Care Team Providers Care Photo Stylist Name Role Phone Vinh Resendez Primary Care Provider + Allergies Active Allergy Reactions Criticality Noted Date Comments Amlodipine Leg Pain 12/20/2021 Codeine Unknown 03/10/2016 Influenza Vaccines Rash Low 12/24/2023 Penicillins Unknown 03/10/2016 Procaine Unknown 03/10/2016 Quinidine Unknown 03/10/2016 Tramadol Seizure 07/04/2021 Medications vitamin D3, cholecalciferol, 1000 UNIT Tab tablet Active levothyroxine (SYNTHROID) 112 MCG tabletIndications:O ther specified hypothyroidism Take 1 tablet (112 mcg total) by mouth every morning. FOR 14 DAYS 90 tablet 3 5 Active piroxicam (FELDENE) 10 MG capsuleIndications: Other chronic pain TAKE 1 CAPSULE BY MOUTH TWICE DAILY 90 capsule 5 Active methocarbamol (ROBAXIN) 500 MG tabletIndications:O ther chronic pain Take 1 tablet (500 mg total) by mouth 3 (three) times daily as needed. 90 tablet 2 5 Active fluticasone propionate (FLONASE) 50 MCG/ACT nasal sprayIndications:Dy sfunction of right eustachian tube SHAKE LIQUID AND USE 2 SPRAYS IN EACH NOSTRIL DAILY 48 g 5 Active omeprazole (PRILOSEC) 20 MG capsuleIndications: Gastro-esophageal reflux disease without esophagitis Take 1 capsule by mouth once daily 90 capsule 1 5 Active olmesartan (BENICAR) 20 MG tabletIndications:G severo-esophageal reflux disease without esophagitis TAKE 1/2 TABLET(10 MG) BY MOUTH DAILY 45 tablet 5 Active Active Problems Problem Noted Date Diagnosed Date Benign hypertension with stage 3b chronic kidney disease 12/23/2024 Trochanteric bursitis of left hip 08/08/2022 Osteoarthritis [...] pain 07/01/2019 Stage 3b chronic kidney disease 10/04/2016 Essential (primary) hypertension 04/16/2016 Gastro-esophageal reflux [...] Encounters Date Type Department Care Team Description 03/25/2025 Scan [facility] Scanned, [facility] 03/24/2025 Scan [facility] Scanned, [facility] MRI (SCAN) 03/10/2025 Scan [facility] Scanned, [facility] Procedure (SCAN) 02/09/2025 Scan [facility] Scanned, [facility] from Last 3 Months Immunizations Immunization Administration Dates Next Due PFIZER COVID-19 (ORIGINAL FO RMULATION, PURPLE CAP) mRNA, LNP-S, PF, 30 MCG/0.3 ML DOSE 09/05/2021,11/29/2020,11/08/2020 Family History Medical History Relation Comments Lung Disease Brother Thyroid Disease Daughter Heart Disease Father Arthritis Mother Diabetes Mother Hypertension Mother Kidney Disease Mother Stroke Mother Relation Status Comments Brother Daughter Alive Father Mother Social History Tobacco Use Types Packs/Day Years Used Date Smoking Tobacco: Former Cigarettes 1 1 0 03/30/1977 - 03/30/1978 Smokeless Tobacco: Never Tobacco Cessation:Counseling Given: Not Answered Alcohol Use Standard Drinks/Week Comments Never 0 (1 standard drink = 0.6 oz pur e alcohol) PHQ-2 Answer Date Recorded Patient Health Questionnaire-2 Score 0 12/23/2024 Comments No Sex and Gender Information Value Date Recorded Sex Assigned at Female 12/23/2024 12:17 PM CDT Legal Sex Female 2:53 AM CDT Gender Identity Female 12/23/2024 12:17 PM CDT Sexual Orientation Not on file Last Filed Vital Signs Vital Sign Reading Time Taken Comments Blood Pressure 138/86 12/23/2024 12:18 PM CDT Pulse 96 12/23/2024 12:18 PM CDT Temperature 36.2 C (97.2 F) 12/23/2024 12:18 PM CDT Respiratory Rate 16 12/23/2024 12:18 PM CDT Oxygen Saturation 97% 12/23/2024 12:18 PM CDT Inhaled Oxygen Concentration - - Weight 88.5 kg (195 lb) 12/23/2024 12:18 PM CDT Height 160 cm (5' 3) 12/23/2024 12:18 PM CDT Body Mass Index 34.54 12/23/2024 12:18 PM CDT Plan of Treatment Upcoming Encounters Date Type Department Care Team (Late st Contact Info) Description 06/25/2025 11:20 AM CDT Office Visit [facility] Family & Internal Medicine [address] [address] Vinh Resendez, [address] [place] [id number] Health Maintenance Due Date Last Done Comments Annual Medicare Wellness Visit 2011 RSV Immunization or 60+ Years (1 - 1-dose 75+ series) 2021 Pneumococcal Vaccine: 50+ Years (1 of 1 - PCV) 12/10/2025 Postponed from 03/1996 (Patient Refused) COVID-19 Vaccine (4 - 2023-2 5 season) 2025 09/05/2021, 11/29/2020, 11/08/2020 Postponed from 06/01/2024 (Patient Refused) DTaP, Tdap and Td Vaccines ( 1 - Tdap) 01/12/2099 Postponed from 08/06 (Patient Refused) Dexa Scan (General) 01/12/2099 Postpone d from 2011 (Patient Refused) Zoster Vaccines (1 of 2) 01/12/2099 Pos tponed from 1996 (Patient Refused) Hepatitis C Completed 06/20/2023 PHQ-2 (Physician [place]) Completed 12/23/2024 Meningococcal B Vaccine Aged Out No l onger eligible based on patient's age to complete this topic Meningococcal Vaccine Aged Out No ghassan brice eligible based on patient's age to complete this topic RSV Immunizations Under 20 Months Aged Out No longer eligible b ased on patient's age to complete this topic Procedures Procedure Name Priority Date/Time Associated Diagnosis Comments MRI GENERIC 03/24/2025 PROCEDURE GENERIC (SCAN ORDER) 03/10/2025 PROCEDURE GENERIC (SCAN ORDER) 03/10/2025 HEP C SCANNED ORDERS Routine 06/20/2023 from Last 3 Months or Most Recently Relevant to Health Maintenance Results * MRI GENERIC (03/24/2025) Anatomical Region Laterality Modality Other 03/24/2025 [facility] Scanned SCANNING Final Resu lt * PROCEDURE GENERIC (SCAN ORDER) (03/10/2025) 03/10/2025 [facility] Scanned SCANNING Final Resu lt * PROCEDURE GENERIC (SCAN ORDER) (03/10/2025) 03/10/2025 [facility] Group Scanned SCANNING Final Resu lt * HEP C SCANNED ORDERS (06/20/2023) [facility] Group Scanned SCANNING Final Resu lt [facility] from Last 3 Months or Most Recently Relevant to Health Maintenance Insurance MEDICARE [facility] Care Teams Photo Stylist Relationship Specialty Start Date End Date Vinh Resendez DO [address] [place] [phone] PCP - General FAMILY PRACTICE 05/27/21
--- OUTSIDE RECORDS SUMMARY | 2025-04-07 08:41 | XMS_ITS | Data Portability ---
Author Organization [facility] Main Office Address [address] [place] [address] Care Team Providers Care Automatic Nailing Machine Operator Name Role Phone ARIEL QUINTANILLA Primary Care [...] either from her neck or from neuropathy. [email or web address] Not available 12/05/2022 14:12:38 04/06/2023 04/06/2023 The [...] with more than half of this in [id number] conversation marita Not available 05/07/2023 16:33:10 11/17/2024 [...] DO Not Attach Compendium, Do Not Delete/merge, [id number] 5 12:24:28 injection/a spiration joint/bursa (PROC) 2024 025 [email or web address] In-Office Order, Internal Use Only DO Not Attach Compendium DO Not Attach Compendium, Do Not Delete/merge, [id number] 5 12:24:27 injection/a spiration joint/bursa (PROC) - in office procedure, administere d by provider 2022 023 [email or web address] In-Office Order, Internal Use Only DO Not Attach Compendium DO Not Attach Compendium, Do Not Delete/merge, [id number] 3 14:20:35 Surgeries None recorded. Imaging XR, lumbar spine 2024 025 [email or web address] [facility] [place], [address], [place], [address], 5 12:33:12 XR, knee 2022 023 [email or web address] [facility] [place], [address], [place], [address], 3 19:12:27 XR, hip + pelvis, unilateral 2022 023 [email or web address] [facility] [place], [facility] [facility] [address], [place], [address], 3 15:17:02 Medication Orders bupivacaine HCl 0.5 % (5 mg/mL) injection solution [address] [facility], [address] [place] [address], [id number], 5 12:35:08 Kenalog 10 mg/mL suspension for injection [address] [facility], [address] [place] [address], [id number], 5 12:35:08 prednisone 10 mg tablets in a dose pack [address] [facility], [address] [place] [address], [id number], 5 12:35:08 bupivacaine HCl 0.5 % (5 mg/mL) injection solution [address] [facility]323, [address] [place] [address], [id number], 5 12:35:08 Kenalog 10 mg/mL suspension for injection [address] [facility]017, [address] [place] [address], [id number], 5 12:35:08 Kenalog 10 mg/mL suspension for injection 2022 023 [email or web address] [facility], [address] [place], [address], 3 15:56:37 ropivacaine (PF) 5 mg/mL (0.5 %) injection solution 2022 023 [email or web address] [facility], [address] [facility], [place], [address], 5 11:52:39 Patient TargetsNo targets recorded. Patient InstructionsNo instructions recorded. Reason for Referral None Reported. Results Created Date Observation Date Name Description Value Unit Range Abnormal Flag Note LastModifiedBy Organization Detail LastModifiedTime 10/16/19 elect romyo gram + nerve condu ction study No observ ation record ed. [id number] Not Available 11/29/2022 13:54:08 10/16/19 23 XR, hand No observ ation record ed. [id number] [facility] [place] [address], [place], [address], 11/29/2022 13:54:08 10/16/19 23 08/23/2022 elect romyo gram + nerve condu ction study No observ ation record ed. [id number] Not Available 11/29/2022 13:54:08 04/06/20 23 XR, hip + pelvi s, unila teral No observ ation record ed. [email or web address] [facility] [place] [address], [place], [address], 04/06/2023 14:56:21 05/07/20 23 XR, knee No observ ation record ed. [email or web address] [facility] [place] [address], [place], [address], 05/07/2023 16:31:54 11/17/19 25 XR, lumba r spine No observ ation record ed. [email or web address] [facility] [place] [address], [place], [address], 11/17/2024 12:33:11 Result Notes None recorded. Problems Name Problem SNOMED Code Status Onset Date Resolution Date Notes Provider Name and Address Organization Details Recorded Time Disorder of shoulder 764070298 Active Not Available [facility] 3 13:52:27 Disorder of trunk 922834448 Active Not Available [facility] 3 13:52:27 Disorder of sacrum 43231790 Active Not Available [facility] 3 13:52:27 Spinal stenosis of lumbar region 74767662 Active 2018 Not Available [facility] 3 13:52:27 Radiothera py follow-up 013666259 Active Not Available [facility] 3 13:52:27 Localized, primary osteoarthr itis of the pelvic region and thigh 998070894 Active Not Available [facility] 3 13:52:27 Pain of sacroiliac joint 981630331 Active 2018 Not Available [facility] 3 13:52:27 Partial thickness rotator cuff tear 322698404 Active Not Available [facility] 3 13:52:28 Osteoarthr itis of knee 709067840 Active 2021 Not Available [facility] 3 13:52:28 Shoulder joint pain 969763023 Active Not Available [facility] 3 13:52:28 Low back pain 868497097 Active Not Available [facility] 3 13:52:28 Enthesopat hy of hip region 37162739 Active Not Available [facility] 3 13:52:28 Trochanter ic bursitis of left hip 5196215402353 03 Active 2021 Not Available [facility] 3 13:52:28 Osteoarthr itis of left knee joint 7574804457563 09 Active 2021 Not Available [facility] 3 13:52:28 Osteoarthr itis 214058529 Active Not Available [facility] 3 13:52:28 Pain of right knee joint 2253545156938 00 Active 2021 Not Available [facility] 3 13:52:28 Pain of hip region 92478245 Active Not Available [facility] 3 13:52:28 Carpal tunnel syndrome 88874518 Active Not Available [facility] 3 13:52:28 Degenerati on of interverte bral disc 95984667 Active Not Available [facility] 3 13:52:28 Spinal stenosis in cervical region 56792922 Active 2018 Not Available [facility] 3 13:52:28 Pain of right hip joint 0376791059277 02 Active 2024 Claire Bookers SCREENING UNIT REGISTERED NURSE null, [place] [facility] 5 11:44:55 Trochanter ic bursitis of right hip 5284049352947 00 Active 2024 Marie Olga null, [place] [facility] 5 12:19:36 Pain in right sacroiliac joint 3035703450719 9107 Active 2024 Marie Littlejohns null, [place] [facility] 5 12:19:46 Osteoarthr itis of right hip joint 6183081048738 07 Active 2024 TONY Lara [address] [place] [address], [address] , [place] [facility] 5 12:33:56 Problem Notes None recorded. Procedures Surgical History Date Name Laterality Status Provider Name and Address Organization Details Recorded Time Rotator cuff surgery completed Not Available [facility] 11/29/2022 13:52:02 Cholecystectomy completed Not Available [facility] 11/29/2022 13:52:02 total replacement of left hip joint completed Claire France SCREENING UNIT REGISTERED NURSE [place] [facility] 11/17/2024 11:53:25 Neck completed Claire France, SCREENING UNIT REGISTERED NURSE [place] [facility] 11/17/2024 11:53:34 Knee completed Claire France, SCREENING UNIT REGISTERED NURSE [place] [facility] 11/17/2024 11:53:44 Imaging Results None recorded. Procedure Notes None recorded. Medical Equipment None Reported. Allergies Allergen ID Allergen Name Allergen Category Reaction Reaction Severity Criticality Documentation Date Start Date Code Code System Note Provider Name and Address Organization Details Recorded Time 32005 quinidine Not available Not available Not available Not available 11/29/2022 9068 RxNorm Not Available [facility] 3 13:54:04 44663 procaine medicatio n Not available Not available Not available 11/29/2022 8701 RxNorm Not Available [facility] 3 13:54:04 71701 Product containin g penicilli n (product) medicatio n Not available Not available Not available 11/29/2022 32373 8001 SNOMED Not Available [facility] 3 13:54:04 43265 influenza A (H5N1) virus vaccine monoval (18y up) Not available Not available Not available Not available 11/29/2022 22248 UNK Not Available [facility] 3 13:54:04 17039 Darvocet- N medicatio n Not available Not available Not available 11/29/2022 11483 UNK Not Available [facility] 3 13:54:04 55329 codeine medicatio n Not available Not available Not available 11/29/2022 2670 RxNorm Not Available [facility] 3 13:54:05 32318 tramadol medicatio n seizure Not available Not available 11/17/2024 54993 RxNorm JOEY Khoury, [facility] 5 11:51:51 Medications Name Sig Start Date [...] mg by injectio n route. 2024 active ND: 0003-049 4-20 Not Available Not Available Not [...] office by the doctor. 01/13 completed NDC: [id number] 001 Not Available Not Available Not Available [...] %) injection solution in office 11/[address] [facility] 56771-93 4- Not Available Not Available Not Available [...] Updated DateTime 10/16/2022 31.9 kg/m2 160.02 cm 23653.63 g Not Available [facility] 11/29/2022 13:52:14 Date Recorded Body height Body mass index (BMI) Body weight Provider Name and Address Organization Details Last Updated DateTime 11/17/2024 162.56 cm 30.9 kg/m2 72290.63 g Claire Hough CNA [facility] 11/17/2024 11:50:48 Date Recorded Body height Body mass index (BMI) Body weight Provider Name and Address Organization Details Last Updated DateTime 12/05/2022 160.02 cm 30.1 kg/m2 39879.7 g Yasmeen Armijo [facility] [employer] [facility] 12/05/2022 14:04:08 Date Recorded Body height Body mass index (BMI) Body weight Provider Name and Address Organization Details Last Updated DateTime 04/06/2023 162.56 cm 30.9 kg/m2 48759.63 g Yasmeen Armijo Jolie [facility] 04/06/2023 14:18:53 Date Recorded Body height Provider Name an d Address Organization Details Last Updated DateTime 05/07/2023 162.56 cm Yasmeen Armijo [facility] [employer] [facility] 05/07/2023 15:56:25 Social History Question Answer Notes LastModified by [employer] Details LastModified Time Tobacco Smoking Status Former Smoker quit 1978 Not Available [facility] 11/29/2022 13:52:01 What Is Your Level Of Caffeine Consumption? Moderate [id number] Information not available 11/29/2022 How Much Tobacco Do You Chew? None [id number] Information not available 11/29/2022 In The 14 Days Before Symptom Onset, Have You Had Close Contact With A Laboratory-confir med COVID-19 While That Case Was Ill? No [id number] Information not available 11/29/2022 In The 14 Days Before Symptom Onset, Have You Had Close Contact With A Person Who Is Under Investigation For COVID-19 While That Person Was Ill? No [id number] Information not available 11/29/2022 Which Illicit Or Recreational Drugs Have You Used? No [id number] Information not available 11/29/2022 Sex: Unknown Functional Status Question Answer Note LastModified by [employer] Details LastModified Time What is your level of alcohol consumption? None [id number] Information not available 11/29/2022 Do you or have you ever used smokeless tobacco? Never used smokeless tobacco [id number] 026 Information not available 11/29/2022 Do you or have you ever used e-cigarettes or vape? Never used electronic cigarettes [id number] 026 Information not available 11/29/2022 Mental Status None recorded. Family History Relationship Description Onset Age of this Age Resolved Age Notes LastModified by Organization Details LastModified Time Father Heart disease [id number] [id number] Not available 11/29/2022 13:52:03 Mother Family history of stroke [id number] Not available 11/29/2022 13:52:03 Mother Hypertensive disorder [id number] [id number] Not available 11/29/2022 13:52:03 Mother Diabetes mellitus [id number] [id number] Not available 11/29/2022 13:52:03 Mother Kidney disease [id number] [id number] Not available 11/29/2022 13:52:03 Medical History Condition Response ARTHRITIS Y THYROID DISEASE Y OSTEOPOROSIS Y USE OF NSAIDS Y URINARY/BLADDER/KIDNEY PROBLEMS Y HYPERTENSION Y Gynecological HistoryNo gynecological history recorded. Obstetrics History GPAL:G 0 P 0 0 0 0 Past Encounters Encounter ID Performer Location Encounter Start Date Encounter Closed Date Diagnosis/Indication Diagnosis SNOMED-CT Code Diagnosis ICD10 Code Diagnosis Note [id number] S[facility] _[facility]_M IGRATION_ DEFAULT_1 _1 , 02/17/2021 00:00:00 02/17/2021 13:19:07 [id number] Yessi Kenney [facility] DEFAULT_1 _1 , 05/12/2021 00:00:00 05/12/2021 13:34:57 [id number] TONY L[facility] [place] [address] [place] [address] 05/16/2021 00:00:00 05/16/2021 12:50:51 [id number] TONY Lara [facility] [place] [address] [facility] [address] [place] [address] 06/27/2021 00:00:00 06/27/2021 11:15:11 [id number] TON[facility] L[facility] [place] [address] [place] [address] 07/05/2021 00:00:00 07/05/2021 14:44:49 [id number] TONY Lara [facility] [place] [address] [place] [address] 07/11/2021 00:00:00 07/11/2021 11:04:47 [id number] Bulmaro Pro MD [facility] [place] [address] [place] [address] 08/22/2021 00:00:00 08/22/2021 11:24:57 [id number] Yessi Kenney MD _[facility]_M IGRATION_ DEFAULT_1 _1 , 09/08/2021 00:00:00 09/08/2021 12:21:33 [id number] Bulmaro Pro MD [facility] [place] [address] [place] [address] 10/11/2021 00:00:00 10/11/2021 15:40:50 [id number] Rene Dutta MD [facility] [place] [address] [place] [address] 01/13/2022 00:00:00 01/22/2022 20:45:16 [id number] Rene Dutta MD [facility] [place] [address] [place] [address] 02/10/2022 00:00:00 02/11/2022 09:27:24 [id number] Rene Dutta MD [facility] [place] [address] [place] [address] 04/28/2022 00:00:00 04/28/2022 12:38:13 [id number] Rene Dutta MD [facility] [place] [address] [place] [address] 05/15/2022 00:00:00 05/15/2022 14:37:57 [id number] MD ROSANNA [facility] [place] [address] [place] [address] 05/29/2022 00:00:00 05/29/2022 14:36:54 [id number] Bulmaro Pro MD [facility] [place] [address] [place] [address] 08/08/2022 00:00:00 08/08/2022 15:00:56 [id number] Bulmaro Pro MD [facility] [place] [address] [place] [address] 10/16/2022 00:00:00 10/16/2022 11:08:58 [id number] Bulmaro Pro MD [facility] [place] [address] [place] [address] 12/05/2022 13:59:15 12/05/2022 15:41:12 Carpal tunnel syndrome 96994284 G56.03 [id number] Bulmaro Pro MD [facility] [place] [address] [place] [address] 04/06/2023 14:16:01 04/06/2023 14:48:23 Carpal tunnel syndrome 68878595 G56.03 Trochanter ic bursitis of left hip 4601461126 95317 M70.62 [id number] Rene Dutta MD [facility] [place] [address] [place] [address] 05/07/2023 15:50:21 05/07/2023 17:41:31 History of right total knee replacement 3364165742 680472 Z96.850 [id number] Johnathan Nunez MD [facility] [place] [address] [place] [address] 11/17/2024 11:30:11 11/17/2024 12:27:57 Pain of right hip joint 3286370023 86795 M25.551 Low back pain 076233627 M54.50 Trochanter ic bursitis of right hip 1326385603 35046 M70.61 Pain in ri ght sacroiliac joint 5876468980 4460081 M53.3 Osteoarthr itis of right hip joint 8575497349 61347 M16.11 Health Concerns Section Related Observation LastModified by Organization Detai ls LastModified Time None Recorded Concern Status LastModified by Organization Details LastModified Time None Recorded Advance Directives Directive None Recorded Payers Insurance Date Sequence Insurance Name Policy Number Policy Diaz Covered Member ID Diaz Member ID Guarantor Name 12/29/2024 1 [place] Celia [place] [id number] Celia Dykesritt 12/29/2024 2 [place] [id number] Celia Patterson [id number] Celia [place] Notes Date Note Type Note Provider Name and Address Organization Details Recorded Time 12/05/2022 text/html Patient returns status post carpal tunnel release left. The wound split open a little bit numbness and tingling she persists she has not got complete relief. She does have cervical problems as well. Bulmaro Pro MD [address], [place], [address], [facility] 12/05/2022 14:14:43 04/06/2023 text/html Patient returns complaining [...] left trochanteric bursa. TONY Lara [address], [place], [address], [employer] 04/06/2023 14:56:57 11/17/2024 text/html Patient returns with [...] with the patient. TONY Lara [address], [place], [address], [employer] 11/17/2024 12:34:45 OBGyn Episode No OBEpisode recorded.
--- OUTSIDE RECORDS SUMMARY | 2025-04-07 08:41 | XMS_ITS | Clinical Summary ---
Author Organization [facility] Address [address] [place] [id number] Phone Care Team Providers Care Auto Parts Clerk Name Role Phone MalVinh Gwen GOFF Primary Care Provider + Allergies [...] on file Legal Sex Female 8:17 AM [facility] Gender Identity Not on file Sexual Orientation Not on file Last Filed Vital Signs Vital Sign Reading Time Taken Comments Blood Pressure 132/76 09/13/2022 11:35 AM SLITTING AND SHIPPING SUPERVISOR Pulse - - Temperature 36.6 C (97.9 F) 09/13/2022 11:35 AM SLITTING AND SHIPPING SUPERVISOR Respiratory Rate 18 09/13/2022 11:35 AM SLITTING AND SHIPPING SUPERVISOR Oxygen Saturation - - Inhaled Oxygen Concentration - - Weight 83 kg (183 lb) 09/13/2022 11:35 AM SLITTING AND SHIPPING SUPERVISOR Height 162.6 cm (5' 4) 09/13/2022 11:35 AM SLITTING AND SHIPPING SUPERVISOR Body Mass Index 31.41 09/13/2022 11:35 AM SLITTING AND SHIPPING SUPERVISOR Plan of Treatment Health Maintenance Due Date Last Done Comments Pneumococcal PPSV23/PCV13 65 + Years / Low and Medium Risk (1 of 2 - PCV) 1996 Influenza Vaccine (#1) 2025 Insurance MEDICARE [facility] Care Teams Auto Parts Clerk Relationship Specialty Start Date End Date Vinh Resendez DO [address] [place] [id number] PCP - General Family Medicine 08/10/21
--- NOTE | 2025-04-07 09:10 | WPDHPUPDATE1 ---
History and Physical Update Update Date/Time: 04/07/25 09:10 History and Physical has been reviewed, including an updated exam of the patient. There are NO changes in the patient's condition. Risks, benefits, and alternatives have been discussed and questions answered. Patient agrees to proceed with procedure.
--- NOTE | 2025-04-07 09:12 | W.PM.PROC2 ---
Procedure Note - Detailed Date of Procedure 04/07/25 Pre-op Diagnosis Lumbar Spondylosis Post-op Diagnosis Same Procedure Performed Diagnostic Bilateral Lumbar Medial Branch/Dorsal Ramus Blocks at L3, L4, L5 Treating the Bialteral L4-5, L5-S1 Facet Joints Under Fluoroscopic Guidance and with Contrast Control. (4 levels blocked). Surgeon Karel Lazaro MD Named Account Executive None. Anesthesia Local Description of Procedure INFORMED CONSENT: Risks, benefits and alternatives to the procedure were discussed in detail with the patient who expressed explicit understanding and consent to proceed. Patient was informed verbally and in written form regarding the risks associated with the procedure including the low risk of serious infection, bleeding/bruising, allergic reaction, nerve or organ injury, paralysis, procedural site pain or discomfort, worsening pain and/or mobility, failure to treat and/or disfigurement. The patient expressed explicit understanding and consent to proceed. All materials required for the procedure were available prior to procedure start. Site and side were marked prior to procedure and confirmed in the presence of the patient. PROCEDURE IN DETAIL: The patient was brought to the procedural suite and placed in the prone position. Patient was made comfortable with use of pillows under the head/chest, hips and ankles. Skin overlying the injection site on the affected side(s) was prepared broadly with ChloraPrep applicator and draped in a sterile manner. Aseptic technique was used throughout. The endplates of the vertebral bodies at the site(s) of interest were aligned in the AP view. Ipsilateral oblique angulation was utilized to optimize visualization of the intersection between the superior articulating process and transverse process at each target site. Local anesthesia was established by infiltration with approximately 5 mL of 1% lidocaine via a 1-1/2 inch 27-gauge needle. A 25-gauge 3.5 inch Quincke spinal needle was advanced until the needle tip contacted periosteum at the target site, right L3. Lateral view was utilized to confirm the appropriate placement of the needle tip just anterior to the facet line and superior to the pedicle. In the Lateral view, 0.25 mL of Omnipaque 300 contrast medium was injected after negative aspiration for CSF, blood or other bodily fluid, showing appropriate extra-articular spread of contrast without evidence of intravascular, foraminal or intrathecal placement. A 0.5 mL solution of 2.0% lidocainewas injected after negative repeat aspiration. Appropriate spread of the injectate was confirmed with washout of previously injected contrast. No parasthesias were elicited. Needle was removed completely intact without difficulty. The same exact procedure was repeated for all remaining levels on the ipsilateral side, right L4, L5 medial branches/dorsal ramus, modified as necessary to accommodate for the new target location with identical findings and results and no evidence of complication. The same exact procedure was repeated for all remaining levels on the contralateral side, left L3, L4, L5 medial branches/dorsal ramus, modified as necessary to accommodate for the new target location with identical findings and results and no evidence of complication. Images were saved and documented in the patient chart. Patient's skin was cleaned and sterile bandage applied. The patient tolerated the procedure well. The patient was transported to the recovery area in stable condition where they were observed for an appropriate amount of time prior to discharge, without evidence of complication. Patient was instructed on the appropriate completion of a pain diary over the next 12-24 hours. The patient was instructed to avoid excessive activity for the next 48 hours, including climbing and frequent use of stairs. Showers only for 48 hours. They were instructed not to drive or operate heavy machinery for 24 hours. They are to monitor for severe headaches, fevers, chills, night sweats, erythema/swelling at the site or any other signs of infection, bleeding/bruising, bowel or bladder changes as well as new pain, weakness or numbness in the upper or lower extremity. Should they notice these changes, they are instructed to call our office immediately or report directly to the nearest Emergency Department if no answer or if after posted office hours. COMPLICATIONS: None COMMENTS: None CONTRAST WASTED: 28.5mL Omnipaque 300. Complications No immediate complications Condition Stable Disposition Same day [facility] Billing Surgery - Charge Forward: Surgery Billing
[2025-04-07 09:16] VITALS: BP 142/87; PULSE 91; RESP 15; TEMP 37; O2SAT 96
[2025-04-07 09:39] VITALS: BP 149/80; PULSE 106; RESP 22; O2SAT 98
[2025-04-07 09:44] VITALS: BP 158/97; PULSE 100; RESP 20; O2SAT 98
[2025-04-07] MEDS: LIDOCAINE 1% PF INJ 5 ML VIAL INFILTRATE (09:47)
[2025-04-07 09:50] VITALS: BP 155/70; PULSE 98; RESP 20; O2SAT 98
[2025-04-07 09:57] VITALS: BP 139/82; PULSE 94; RESP 14; O2SAT 98
== END 2025-04-07 10:09 | disposition home or self-care (01) ==
PROVIDERS: PCP Student in an Organized Health Care Education/Training Program; Visit Provider Anesthesiology Pain Medicine
PROC: (CPT 64493; principal; 2025-04-07 09:10)
DX: M47.816 Spondylosis without myelopathy or radiculopathy, lumbar region (principal)
CPT/HCPCS: 64493 ×2; 64495 ×2; 64494 ×2; 99199

== ENCOUNTER 2025-05-18 10:23 | Day surgery (SDC) | payer MEDICARE, SELFPAY ==
[2025-05-07 10:50] VITALS: BMI 33.3
[2025-05-07 13:23] VITALS: BMI 33.3
--- NOTE | ~2025-05-18 | XR_ITS ---
EXAM: XR fluoroscopy no charge - 05/18/2025 11:55 CDT History: 79 years old Female with THERMAL RADIOFREQUENCY ABLATION GRACIELA L3,L4,L5 MEDIAL BRANCH/D Fluoroscopy time: 35.9 seconds FINDINGS/ IMPRESSION: Multiple fluoroscopic images of ablation. Reviewed, dictated and finalized at location A.
--- NOTE | 2025-05-18 10:43 | P.HP_ITS ---
History of Present Illness History of Present Illness Consent: Risks, benefits, and alternatives have been discussed and questions answered. Patient agrees to proceed with procedure. Chief complaint: Lumbosacral Spondylosis w/o Myelopathy or Radicul. Narrative: Celia Patterson is a 79 year old female with chronic, recalcitrant and disabling bilateral lumbosacral back pain secondary to degenerative spondylosis with failure to respond to aggressive conservative measures including PT, oral and topical analgesics, opioid and nonopioid analgesics, rest, time and activity/behavioral modification over the past 1-2 years who presents for thermal radiofrequency ablation of the bilateral L3, L4, L5 medial branches/dorsal ramus addressing the bilateral L4-5, L5-S1 facet joints under fluoroscopic guidance. Review of Systems Review of Systems: All systems reviewed & are unremarkable except as noted in HPI and below PMFSH Past Medical History Medical History DJD (degenerative joint disease) CKD (chronic kidney disease) Arthritis Hypothyroid Hypertension Surgical History Surgical History H/O neck surgery Hx of right knee surgery (~03/2022) Hx of hand surgery (~11/2022) History of left hip replacement Family History Family History Mother Heart disease Hypertension Father Hypertension Social History Social History Social History: patient currently lives at home by herself with her dog that she has had for the last 14 years. She stated that she has 2 kids 2 daughters 4 grandchildren 1 great grandchildren. Patient stated that she was however he of kidney cancer in 2011. Patient wishes to be a full code at this time and she likes her daughter Tonia to be her surrogate Smoking packs per day: 1 Smoking cigarettes per day: 20.0 Years smoked: 5 Smoking pack-years: 5.00 Smoking status: Former smoker Tobacco type: cigarettes Second hand tobacco smoke exposure: Yes Smoking end date: 10/01/77 Additional smoking assessment comments: PT UNABLE TO REALL # OF YRS SMOKED Alcohol intake: never Substance use: never Substance use type: does not use Do You Feel Safe in your Home?: Yes Lack of Transportation: No Lack of Food: Never True Current Housing: Decline to Answer Concerned About Future Housing: Decline to Answer Difficulty Paying Gas/Electric Bills: Decline to Answer Difficulty Paying for Meds: Decline to Answer Currently Unemployed: Decline to Answer Education: High School Diploma/GED Difficulty w/ Childcare or Family Care: Decline to Answer Living arrangements: alone Additional living arrangements comments: DAUGHTER YORDY TO STAY WITH PT POST OP Occupation/Education: retired Additional occupation/education comments: [employer] Gender identity (if verbalized by the patient): Female Sexual Orientation (if Verbalized by the Patient): Straight or Heterosexual Spiritual care concerns: No Agree to blood products: Yes Meds Home Medications and Allergies Home Medications ?Medication ?Instructions ?Recorded ?Confirmed ?Type omeprazole 20 mg capsule,delayed 20 mg PO QAM 04/22/21 05/07/25 History release cholecalciferol (vitamin D3) 250 250 mcg PO QAM 03/30/22 05/07/25 History mcg (10,000 unit) tablet levothyroxine 112 mcg tablet 1 tablet PO QAM 04/17/22 05/07/25 History olmesartan 20 mg tablet 10 mg PO DAILY 02/16/23 05/07/25 History methocarbamol 500 mg tablet 500 mg PO TID PRN muscle spasm #30 09/06/23 05/07/25 Rx tabs acetaminophen 500 mg tablet 500 mg PO Q6H PRN pain 10/13/24 05/07/25 History (Tylenol Extra Strength) piroxicam 10 mg capsule 10 mg PO BID 10/13/24 05/07/25 History Allergies Allergy/AdvReac Type Severity Reaction Status Date / Time Influenza Virus Vaccines Allergy Intermediate RASH Verified 05/07/25 13:20 Penicillins Allergy Mild RASH ON Verified 05/07/25 13:20 CHEST tramadol Allergy Seizure Verified 05/07/25 13:20 quinidine AdvReac Severe ??REACTION--ADVISED Verified 05/07/25 13:[address] SMITH NEVER TO TAKE codeine AdvReac Intermediate N/V Verified 05/07/25 13:20 procaine AdvReac Intermediate DIAPHORETIC Verified 05/07/25 13:20 /N/V propoxyphene AdvReac Mild N/V Verified 05/07/25 13:20 Exam Narrative: The patient's physical exam is essentially unchanged from prior examination on 04/15/2025. Specifically, patient demonstrates normal lung capacity, tidal volume and respiratory rate without wheezes, crackles, rales or rubs. Heart rate and rhythm are regular without murmurs, gallops or rubs. No JVD. Pulses 2+ globally without increasing peripheral edema. AAOx3 with no evidence of confusion, intoxication or altered mental state, NC/AT without acute distress or altered consciousness. Speech, cognition, mood, insight and judgment at baseline and within normal limits. Assessment and Plan Assessment and plan (1) Lumbosacral spondylosis: Code(s): M47.817 - Spondylosis without myelopathy or radiculopathy, lumbosacral region Status: Acute Assessment and Plan: Proceed as planned with thermal radiofrequency ablation of the bilateral L3, L4, L5 medial branches/dorsal ramus addressing the bilateral L4-5, L5-S1 fac et joints under fluoroscopic guidance. (2) Chronic low back pain: Code(s): M54.50 - Low back pain, unspecified; G89.29 - Other chronic pain Status: Acute
--- NOTE | 2025-05-18 10:45 | P.OP_ITS ---
Procedure Note - Detailed Date of Procedure 05/18/25 Pre-op Diagnosis Lumbosacral Spondylosis w/o Myelopathy or Radicul. Post-op Diagnosis Same Procedure Performed Thermal Radiofrequency Ablation of the bilateral Lumbar Medial Branches/Dorsal Ramus at the L3, L4, L5 Levels Treating the bilateral L4-5, L5-S1 Facet Joints Under Fluoroscopic Guidance (4 Levels Treated). Surgeon Karel Lazaro MD Customs Inspector None. Anesthesia Local (w/ MAC) Description of Procedure INFORMED CONSENT: Risks, benefits and alternatives to the procedure were discussed in detail with the patient who expressed explicit understanding and consent to proceed. Patient was informed verbally and in written form regarding the risks associated with the procedure including the low risk of serious infection, bleeding/bruising, allergic reaction, nerve or organ injury, paralysis, procedural site pain or discomfort, worsening pain and/or mobility, failure to treat and/or disfigurement. The patient expressed explicit understanding and consent to proceed. All materials required for the procedure were available prior to procedure start. Site and side were marked prior to procedure and confirmed in the presence of the patient. PROCEDURE IN DETAIL: The patient was brought to the procedural suite and placed in the prone position. Patient was made comfortable with use of pillows under the head/chest, hips and ankles. ASA standard monitors were applied and used throughout the procedure. Skin overlying the injection site on the affected side(s) was prepared broadly with ChloraPrep applicator and draped in a sterile manner. Aseptic technique was used throughout. The endplates of the vertebral bodies at the site(s) of interest were aligned in the AP view. Ipsilateral oblique angulation was utilized to optimize visualization of the intersection between the superior articulating process and transverse process at each target site. Local anesthesia was established by infiltration with approximately 5 mL of 1% lidocaine via a 1-1/2 inch 27-gauge needle divided over each site treated. A 16-gauge 150 mm [employer] RF needle with curved 10mm active tip was advanced in the AP view until the needle tip contacted the periosteum at the target site, the right L3 medial branch. Lateral view was utilized to adjust and confirm the appropriate placement of the needle tip just anterior to the facet line, superior to the pedicle and posterior to the foramen. Grounding electrode was in place and functioning. The appropriately-sized RF cannula was inserted into the RF needle and motor stimulation was performed with no subjective or objective evidence of recruited muscle activity with stimulation up to 2.0 volts at a frequency of 2Hz. 1.5 mL of 2.0% PF lidocaine was injected after negative aspiration. After a 90s pause, lesioning was performed to 90 degrees centigrade for 90s ensuring lack of symptoms in the extremity throughout. Needle was rotated 180 degrees and lesioning repeated in a similar manner. Patient tolerated this well. No paresthesias were elicited. Needle was removed completely intact without difficulty. The same procedure was repeated for all intended levels/ structures on the ipsilateral side, right L4, L5 medial branch/dorsal ramus with identical methodology, modified to compensate for new location, with similar results and no evidence of complication. The same exact procedure was repeated for all remaining levels on the contralat eral side, left L3, L4, L5 medial branches/dorsal ramus, modified as necessary to accommodate for the new target location with identical findings/results and no evidence of complication. Images were saved and documented in the patient chart. Patient's skin was cleansed and sterile bandage applied. The patient tolerated the procedure well. The patient was transported to the recovery area in stable condition where they were observed for an appropriate amount of time prior to discharge, without evidence of complication. The patient was instructed to avoid excessive activity for the next 48 hours, including climbing and frequent use of stairs. Showers only for 48 hours. They were instructed not to drive or operate heavy machinery for 24 hours. They are to monitor for severe headaches, fevers, chills, night sweats, erythema/swelling at the site or any other signs of infection, bleeding/bruising, bowel or bladder changes as well as new pain, weakness or numbness in the upper or lower extre mity. Should they notice these changes, they are instructed to call our office immediately or report directly to the nearest Emergency Department if no answer or if after posted office hours. COMPLICATIONS: None COMMENTS: None Complications No immediate complications Condition Stable Disposition PACU [facility] Billing Surgery - Charge Forward: Surgery Billing
--- NOTE | 2025-05-18 10:45 | WPDHPUPDATE1 ---
History and Physical Update Update Date/Time: 05/18/25 10:45 History and Physical has been reviewed, including an updated exam of the patient. There are NO changes in the patient's condition. Risks, benefits, and alternatives have been discussed and questions answered. Patient agrees to proceed with procedure.
--- NOTE | 2025-05-18 10:53 | P.PNAN_ITS ---
Anes - Initial Pre Proc Eval Procedure: Operation Date: 05/18/25 12:15 Proposed Procedures p Thermal Radiofrequency Ablation Bilateral L3, L4, L5 Medial Branch/Dorsal Ramus Addressing Bilateral L4-5, L5-S1 Facet Joints under Fluoroscopic Guidance with Contrast Control - Karel Lazaro MD Date/Time: 05/18/25 10:53 Surgeon: Karel Lazaro MD Pre Op Diagnosis: Lumbosacral Spondylosis w/o Myelopathy or Radicul. Patient Data Age: 79 Gender: F Height: 1.63 m Weight: 88 kg Allergies Allergy/AdvReac Type Severity Reaction Status Date / Time Influenza Virus Vaccines Allergy Intermediate RASH Verified 05/07/25 13:20 Penicillins Allergy Mild RASH ON Verified 05/07/25 13:20 CHEST tramadol Allergy Seizure Verified 05/07/25 13:20 quinidine AdvReac Severe ??REACTION--ADVISED Verified 05/07/25 13:[address] SMITH NEVER TO TAKE codeine AdvReac Intermediate N/V Verified 05/07/25 13:20 procaine AdvReac Intermediate DIAPHORETIC Verified 05/07/25 13:20 /N/V propoxyphene AdvReac Mild N/V Verified 05/07/25 13:20 Home Medications ?Medication ?Instructions ?Recorded ?Confirmed ?Type omeprazole 20 mg capsule,delayed 20 mg PO QAM 04/22/21 05/07/25 History release cholecalciferol (vitamin D3) 250 250 mcg PO QAM 03/30/22 05/07/25 History mcg (10,000 unit) tablet levothyroxine 112 mcg tablet 1 tablet PO QAM 04/17/22 05/07/25 History olmesartan 20 mg tablet 10 mg PO DAILY 02/16/23 05/07/25 History methocarbamol 500 mg tablet 500 mg PO TID PRN muscle spasm #30 09/06/23 05/07/25 Rx tabs acetaminophen 500 mg tablet 500 mg PO Q6H PRN pain 10/13/24 05/07/25 History (Tylenol Extra Strength) piroxicam 10 mg capsule 10 mg PO BID 10/13/24 05/07/25 History Patient hx anesthesia problems: none Family hx anesthesia problems: none Results Review: All pre-operative results and documents have been reviewed as part of the pre- operative evaluation. [facility] Past Medical History Medical History DJD (degenerative joint disease) CKD (chronic kidney disease) Arthritis Hypothyroid Hypertension Surgical History Surgical History H/O neck surgery Hx of right knee surgery (~03/2022) Hx of hand surgery (~11/2022) History of left hip replacement Family History Family History Mother Heart disease Hypertension Father Hypertension Social History Social History Social History: patient currently lives at home by herself with her dog that christina post has had for the last 14 years. She stated that she has 2 kids 2 daughters 4 grandchildren 1 great grandchildren. Patient stated that she was however he of kidney cancer in 2011. Patient wishes to be a full code at this time and she likes her daughter Tonia to be her surrogate Smoking packs per day: 1 Smoking cigarettes per day: 20.0 Years smoked: 5 Smoking pack-years: 5.00 Smoking status: Former smoker Tobacco type: cigarettes Second hand tobacco smoke exposure: Yes Smoking end date: 10/01/77 Additional smoking assessment comments: PT UNABLE TO REALL # OF YRS SMOKED Alcohol intake: never Substance use: never Substance use type: does not use Do You Feel Safe in your Home?: Yes Lack of Transportation: No Lack of Food: Never True Current Housing: Decline to Answer Concerned About Future Housing: Decline to Answer Difficulty Paying Gas/Electric Bills: Decline to Answer Difficulty Paying for Meds: Decline to Answer Currently Unemployed: Decline to Answer Education: High School Diploma/GED Difficulty w/ Childcare or Family Care: Decline to Answer Living arrangements: alone Additional living arrangements comments: DAUGHTER YORDY TO STAY WITH PT POST OP Occupation/Education: retired Additional occupation/education comments: [employer] Gender identity (if verbalized by the patient): Female Sexual Orientation (if Verbalized by the Patient): Straight or Heterosexual Spiritual care concerns: No Agree to blood products: Yes Anes - Eval Final PreProcedure Day of Procedure 05/18/25 10:53 Heart: regular rate and rhythm Lungs: clear to auscultation Airway: Mallampati scale class II Neurological: alert and oriented Last oral intake: >/= 8 hours ASA classification: II Anesthetic plan: proceed Anesthesia type and monitoring: monitored anesthesia care Results Review: All pre-operative results and documents have been reviewed as part of the pre- operative evaluation. Informed Consent: The patient's anesthetic plan and its attendant risks and benefits were discussed with the patient/family/POA. Questions were solicited and answers provided to the satisfaction of the patient/family/POA.
[2025-05-18] MEDS: LACTATED RINGERS 1,000 ML 30 ML IV CONT (11:21)
--- OUTSIDE RECORDS SUMMARY | 2025-05-18 11:27 | XMS_ITS | Encounter Summary ---
Author Organization [facility] Address [address] [place] [address] Care Team Providers Care Meteorologist Liaison Name Role Phone Roberto Garcia MD Primary Care Provider [phone] Encounter Details Date Type Department Care Team (Late st Contact Info) Description 01/02/[address] [facility] Outpatient Visit 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
--- OUTSIDE RECORDS SUMMARY | 2025-05-18 11:27 | XMS_ITS | Clinical Summary ---
Author Organization [facility] Address [address] [address] Care Team Providers Care Hide Trimmer Name Role Phone Roberto Garcia MD Primary Care Provider [phone] Source Comments [facility],non-owned Affiliates and Associated Physician Practices is amultiple site organization consisting of ambulatory clinics and hospital sitesin [place], [place], [place] and [place]. This disclosure is being madepursuant to the Care Everywhere program and may not contain all information available regarding this patient. 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.] season) 2024 DEPRESSION SCREENING 10/01/2024 INFLUENZA VACCINE (#1) 2025 HEPATITIS B VACCINE Aged Out No [...] age to complete this topic Insurance MEDICARE [facility] [place] [facility] [address] Care Teams Hide Trimmer Relationship Specialty Start Date End Date Roberto Garcia MD [address] [place], [place] [id number] [place] [address] PCP - General Internal Medicine 07/10/12
--- OUTSIDE RECORDS SUMMARY | 2025-05-18 11:27 | XMS_ITS | Clinical Summary ---
Author Organization [facility] Address [address] [place] [address] Phone Care Team Providers Care Silk Worker Name Role Phone DanielelizabethVinh Gwen GOFF Primary [...] on file Legal Sex Female 8:17 AM [facility] Gender Identity Not on file Sexual Orientation Not on file Last Filed Vital Signs Vital Sign Reading Time Taken Comments Blood Pressure 132/76 09/13/2022 11:35 AM YARDER BOSS Pulse - - Temperature 36.6 C (97.9 F) 09/13/2022 11:35 AM YARDER BOSS Respiratory Rate 18 09/13/2022 11:35 AM YARDER BOSS Oxygen Saturation - - Inhaled Oxygen Concentration - - Weight 83 kg (183 lb) 09/13/2022 11:35 AM YARDER BOSS Height 162.6 cm (5' 4) 09/13/2022 11:35 AM YARDER BOSS Body Mass Index 31.41 09/13/2022 11:35 AM YARDER BOSS Plan of Treatment Health Maintenance Due Date Last Done Comments Pneumococcal PPSV23/PCV13 65 + Years / Low and Medium Risk (1 of 2 - PCV) 1996 Influenza Vaccine (#1) 2025 Insurance MEDICARE [facility] Care Teams Silk Worker Relationship Specialty Start Date End Date Vinh Resendez DO [address] [place] [id number] PCP - General Family Medicine 08/10/21
[2025-05-18 11:36] VITALS: BP 134/92; PULSE 100; RESP 18; TEMP 37.1; O2SAT 97
[2025-05-18] MEDS: LIDOCAINE 1% PF INJ 5 ML VIAL INFILTRATE (12:12)
[2025-05-18] MEDS: BUPivacaine HCL 0.5% 10 ML AMP INFILTRATE (12:13)
[2025-05-18] MEDS: LIDOCAINE 2% PF LOCAL INJ 5 ML VIAL 10 ML INFILTRATE (12:14)
[2025-05-18 12:32] VITALS: BP 118/68; PULSE 73; RESP 14; O2SAT 94
[2025-05-18 13:00] VITALS: BP 123/71; PULSE 72; RESP 16; O2SAT 96
[2025-05-18 13:15] VITALS: BP 128/72; PULSE 67; RESP 16; O2SAT 92
--- NOTE | 2025-05-18 13:41 | SUR.PHASEII ---
pt with heavy legs, difficult to move legs. Pt in post-op >1hr. 2 RNs to help pt to wheelchair, bathroom, and car.
--- NOTE | 2025-05-18 14:06 | SUR.PHASEII ---
martin chance RN asked me to document her IVF for her.
== END 2025-05-18 13:36 | disposition home or self-care (01) ==
PROVIDERS: PCP Student in an Organized Health Care Education/Training Program; Visit Provider Anesthesiology Pain Medicine
PROC: (CPT 64635; principal; 2025-05-18 12:15)
DX: M47.817 Spondylosis without myelopathy or radiculopathy, lumbosacral region (principal); M54.50 Low back pain, unspecified; G89.29 Other chronic pain
CPT/HCPCS: 64635; 64636 ×6; 99199

== ENCOUNTER 2025-05-18 14:10 | Emergency (ER) | payer MEDICARE, SELFPAY ==
--- OUTSIDE RECORDS SUMMARY | 2025-05-18 15:13 | XMS_ITS | Encounter Summary ---
Author Organization [facility] Health Address [address] [place] [address] Care Team Providers Care Civil Manager Name Role Phone Roberto Garcia MD Primary Care Provider [phone] Encounter Details Date Type Department Care Team (Late st Contact Info) Description 01/02/2006 [facility] Outpatient Visit [facility] DEFAULT [address] [place] [address] Abner Alexis MD [address] [facility] [address] [place], [place] [id number] Social History Tobacco Use Types Packs/Day Years Used Date Smoking Tobacco: Never Assessed Comments Unknown Sex and Gender Information Value Date Recorded Sex Assigned at Not on file Legal Sex Female 6:30 AM 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
--- OUTSIDE RECORDS SUMMARY | 2025-05-18 15:13 | XMS_ITS | Clinical Summary ---
Author Organization [facility] Address [address] [place] [address] Phone Care Team Providers Care Disaster Recovery Specialist Name Role Phone DanielelizabethVinh Gwen GOFF Primary [...] on file Legal Sex Female 8:17 AM [facility] Gender Identity Not on file Sexual Orientation Not on file Last Filed Vital Signs Vital Sign Reading Time Taken Comments Blood Pressure 132/76 09/13/2022 11:35 AM SPIKE DRIVER Pulse - - Temperature 36.6 C (97.9 F) 09/13/2022 11:35 AM SPIKE DRIVER Respiratory Rate 18 09/13/2022 11:35 AM SPIKE DRIVER Oxygen Saturation - - Inhaled Oxygen Concentration - - Weight 83 kg (183 lb) 09/13/2022 11:35 AM SPIKE DRIVER Height 162.6 cm (5' 4) 09/13/2022 11:35 AM SPIKE DRIVER Body Mass Index 31.41 09/13/2022 11:35 AM SPIKE DRIVER Plan of Treatment Health Maintenance Due Date Last Done Comments Pneumococcal PPSV23/PCV13 65 + Years / Low and Medium Risk (1 of 2 - PCV) 1996 Influenza Vaccine (#1) 2025 Insurance MEDICARE [facility] Care Teams Disaster Recovery Specialist Relationship Specialty Start Date End Date Vinh Resendez DO [address] [place] [address] PCP - General Family Medicine 08/10/21
--- OUTSIDE RECORDS SUMMARY | 2025-05-18 15:14 | XMS_ITS | Clinical Summary ---
Author Organization [facility] [employer] Address [address] [place] [address] Care Team Providers Care And Rescue Fire Fighter Crash Fire Name Role Phone Roberto Garica MD Primary Care Provider [phone] Source Comments [facility],non-owned Affiliates and Associated Physician Practices is amultiple site organization consisting of ambulatory clinics and hospital sitesin [place], [place] and [place]. This disclosure is being madepursuant to the Care Everywhere program and may not contain all information available regarding this patient. Last updated 18.[facility] [employer] Allergies Active Allergy Reactions Criticality Noted Date [...] on file Legal Sex Female 6:30 AM CAT DOG OR OTHER PET GROOMER Gender Identity Not on file Sexual Orientation Not on file Occupation Industry Job Start Date Job End Date RETIRED Not on file Not on file Not on file Last Filed Vital Signs Vital Sign Reading Time Taken Comments Blood Pressure 102/72 08/14/2012 10:53 AM CAT DOG OR OTHER PET GROOMER Pulse 68 08/14/2012 10:53 AM CAT DOG OR OTHER PET GROOMER Temperature - - Respiratory Rate - - Oxygen Saturation - - Inhaled Oxygen Concentration - - Weight 77.1 kg (170 lb) 08/14/2012 10:53 AM CAT DOG OR OTHER PET GROOMER Height 162.6 cm (5' 4) 08/14/2012 10:53 AM CAT DOG OR OTHER PET GROOMER Body Mass Index 29.18 08/14/2012 10:53 AM CAT DOG OR OTHER PET GROOMER Plan of Treatment Health Maintenance Due Date [...] age to complete this topic Insurance MEDICARE [facility] [place] [facility] [address] [address] Care Teams And Rescue Fire Fighter Crash Fire Relationship Specialty Start Date End Date Roberto Garcia MD [address] [place], [place] [address] [place] [address] PCP - General Internal Medicine 07/10/12
--- OUTSIDE RECORDS SUMMARY | 2025-05-18 15:14 | XMS_ITS | Clinical Summary ---
Author Organization [facility] Address [address] [place] [address] Care Team Providers Care Medicinal Chemist Name Role Phone Vinh Resendez Primary Care [...] Encounters Date Type Department Care Team Description 05/14/[address] [facility] Family & Internal Medicine [address] [address] Vinh Resendez, Lab Order 05/12/2025 Results Follow-Up [facility] [address] [address] Vinh Resendez, DO VITAMIN D, 25 OH, LIPID PANEL, TSH W/REFLEX, Additional followed-up results: 4 05/11/2025 10:40 AM CDT Office Visit [facility] [address] [address] Vinh Resendez, DO Surgical Clearance (Lumbar ablation scheduled 05/18/2025 w/ Dr. Lazaro) 05/11/2025 Travel 04/14/2025 Scan [facility] Scanned, [facility] 04/07/2025 Scan [facility] Scanned, [facility] Image (SCAN); Procedure (SCAN) 03/25/2025 Scan [facility] Scanned, [facility] 03/24/2025 Scan [facility] Scanned, [facility] MRI (SCAN) 03/10/2025 Scan [facility] Scanned, [facility] Procedure (SCAN) from Last 3 Months Immunizations Immunization Administration [...] 03/30/1978 Smokeless Tobacco: Never Tobacco Cessation:Counseling Given: No Alcohol Use Standard Drinks/Week Comments Never 0 [...] Sign Reading Time Taken Comments Blood Pressure 124/72 05/11/2025 10:43 AM CDT Pulse 95 05/11/2025 10:43 AM CDT Temperature 36.6 C (97.9 F) 05/11/2025 10:43 AM CDT Respiratory Rate 16 12/23/2024 12:18 PM CDT Oxygen Saturation 96% 05/11/2025 10:43 AM CDT Inhaled Oxygen Concentration - - Weight 88.1 kg (194 lb 4.8 oz) 05/11/2025 10:43 AM CDT Height 160 cm (5' 3) 05/11/2025 10:43 AM CDT Body Mass Index 34.42 05/11/2025 10:43 AM CDT Plan of Treatment Upcoming Encounters Date Type Department Care Team (Late st Contact Info) Description 05/25/2025 10:40 AM CDT Laboratory Only [facility] [address] [address] Vinh Resendez, DO [address] [place] [address] 11/11/2025 11:40 AM POSTAL MAIL CARRIER Office Visit [facility] [address] [address] Vinh Resendez, DO [address] [place] [address] Health Maintenance Due Date Last Done Comments Annual Medicare Wellness Visit 2011 RSV Immunization or 60+ Years (1 - 1-dose 75+ series) 2021 Pneumococcal Vaccine: 50+ Years (1 of 1 - PCV) 12/10/2025 Postponed from 03/1996 (Patient Refused) COVID-19 Vaccine ( - 2023-2 5 season) 2025 09/05/2021, 11/29/2020, 11/08/2020 Postponed from 06/01/2024 (Patient Refused) DTaP, Tdap and Td Vaccines ( 1 - Tdap) 01/12/2099 Postponed from 08/06 (Patient Refused) Dexa Scan (General) 01/12/2099 Postpone d from 2011 (Patient Refused) Zoster Vaccines (1 of 2) 01/12/2099 Pos tponed from 1996 (Patient Refused) Hepatitis C Completed 06/20/2023 PHQ-2 (Physician Ute) Completed 12/23/2024 Meningococcal B Vaccine Aged Out No l onger eligible based on patient's age to complete this topic Meningococcal Vaccine Aged Out No ghassan brice eligible based on patient's age to complete this topic RSV Immunizations Under 20 Months Aged Out No longer eligible b ased on patient's age to complete this topic Procedures Procedure Name Priority Date/Time Associated Diagnosis Comments FERRITIN Routine 05/11/2025 1:20 PM CDT Anemia IRON SAT PANEL (IRON,IBC,%SAT) Routine 05/11/2025 1:20 PM CDT Anemia CBC W/DIFF AUTOMATED Routine 05/11/2025 1:20 PM CDT 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) Stage 3b chronic kidney disease (CMS/HCC) COMPREHENSIVE METABOLIC PANEL Routine 05/11/2025 1:20 PM CDT 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) Stage 3b chronic kidney disease (CMS/HCC) TSH W/REFLEX Routine 05/11/2025 1:20 PM CDT 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) Stage 3b chronic kidney disease (CMS/HCC) LIPID PANEL Routine 05/11/2025 1:20 PM CDT 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) Stage 3b chronic kidney disease (CMS/HCC) VITAMIN D, 25 OH Routine 05/11/2025 1:20 PM CDT 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) Stage 3b chronic kidney disease (CMS/HCC) COLLECTION VENOUS BLOOD VENIPUNCTURE Routine 05/11/2025 11:25 AM CDT 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 05/11/2025 1:20 PM CDT Vinh Resendez DO LABORATORY Final Re sult Performing Organization Address [facility] Co de Phone Number [facility] [address] [place] [address], [place] [phone] * (ABNORMAL) IRON SAT PANEL (IRON,IBC,%SAT) (05/11/2025 1:20 PM CDT) Pathologist [facility] IRON 41(L) 50 - 170 MCG/DL 05/12/2025 11:39 AM CDT [facility] IRON BINDING CAPACITY 416 250 - 450 MCG/DL 05/12/2025 11:39 AM CDT [facility] IRON SATURATION 10 % 11:39 AM CDT [facility] Comment:REFERENCE RANGE NOT ESTABLISHED 05/11/2025 1:20 PM CDT Vinh Resendez DO LABORATORY Final Re sult Performing Organization Address [facility]/ZIP Co de Phone Number [facility] [address] [place] [address], * (ABNORMAL) COMPREHENSIVE METABOLIC PANEL (05/11/2025 1:20 PM CDT) [facility] SODIUM S/P/B 137 136 - 145 MMOL/L 05/11/2025 7:50 PM CDT -[facility] POTASSIUM S/P/B 5.3(H) 3.5 - 5.1 MMOL/L 05/11/2025 7:50 PM CD[address] [facility] Comment:NO VISIBLE HEMOLYSIS CHLORIDE S/P/B 105 98 - 107 MMOL/L 05/11/2025 7:[address] [facility] CO2 25.9 21 - 32 MMOL/L 05/11/2025 7:50 PM T [facility] GLUCOSE 104(H) 70 - 99 MG/DL 05/11/2025 7:50 PM T [facility] BUN 35(H) 7 - 18 MG/DL 05/11/2025 7:50 PM T [facility] CREATININE S/P/B 1.47(H) 0.55 - 1.02 MG/DL 05/11/2025 7:[address] PM [address] [facility] CALCIUM S/P/B 9.4 8.4 - 10.5 MG/DL 05/11/2025 7:50 PM CD[address] [facility] BILIRUBIN TOTAL S/P/B 0.8 0.2 - 1.0 MG/DL 05/11/2025 7:50 PM CD[address] [facility] ALKALINE PHOSPHATASE S/P/B 87 55 - 142 U/L 05/11/2025 7:50 PM CDT [facility] AST 17 15 - 37 U/L 05/11/2025 7:50 PM CDT [facility] ALT 20 14 - 59 U/L 05/11/2025 7:50 PM [address] [facility] TOTAL PROTEIN S/P/B 6.6 6.4 - 8.2 G/DL 05/11/2025 7:50 PM [address] [facility] ALBUMIN S/P/B 3.3(L) 3.4 - 5.0 G/DL 05/11/2025 7:50 [address] [facility] ANION GAP 6.1 5 - 15 MMOL/L 05/11/2025 7:50 PM CDT [facility] Comment:REFERENCE RANGE NOT ESTABLISHED OSMOLALITY (CALC) 292 MOSM/KG 025 7:50 PM CD[address] [facility] Comment:REFERENCE RANGE NOT ESTABLISHED GFR ESTIMATE 36(L) >90 ML/MIN/1. 73 M2 05/11/2025 7:50 PM CD[address] [facility] GFR NOTES GFR REFERENCE S: 05/11/2025 7:50 PM CD[address] [facility] Comment: THE ESTIMATED GFR IS CALCULATED USING THE 2020 CKD-EPI EQUATION. THE FOLLOWING CATEGORIES FOR GRADING RENAL FUNCTION ARE RECOMMENDED BY THE INTERNATIONAL SOCIETY OF NEPHROLOGY (KDIGO 2012 CLINICAL PRACTICE GUIDELINE). G1,NORMAL OR HIGH: >89 ml/min/1.73 m2 G2,MILDLY DECREASED: 60-89 ml/min/1.73 m2 G3A,MILDLY TO MODERATELY DECREASED: 45-59 ml/min/1.73 m2 G3B,MODERATELY TO SEVERELY DECREASED: 30-44 ml/min/1.73 m2 G4,SEVERELY DECREASED: 15-29 ml/min/1.73 m2 G5,KIDNEY FAILURE: <15 ml/min/1.73 m2 05/11/2025 1:20 PM CDT us Vinh Resendez DO LABORATORY Final Re sult [facility] AMALIA [facility] [address] [place] [address], [place] [phone] * (ABNORMAL) LIPID PANEL (05/11/2025 1:20 PM CDT) CHOLESTEROL 178 <200 MG/DL 05/11/2025 7:50 PM [address] [facility] TRIGLYCERIDES 164(H) <150 MG/DL 05/11/2025 7:50 PM CDT [facility] HDL 39(L) >40 MG/DL 05/11/2025 7:50 PM CDT [facility] LDL-C 106(H) <100 MG/DL 05/11/2025 7:50 PM CDT [facility] VLDL CALCULATION 33(H) 5 - 28 MG/DL 05/11/2025 7:50 PM CD[address] [facility] CHOL/HDL RATIO 4.6(H) 0.0 - 4.0 05/11/2025 7:50 PM [address] [facility] LDL/HDL 2.7(H) 0.41 - 2.13 05/11/2025 7:50 PM CDT [facility] NON HDL CHOLESTEROL 139 <140 MG/DL 05/11/2025 7:50 PM CD[address] [facility] 05/11/2025 1:2 0 PM CDT Vinh Resendez DO LABORATORY Final Re sult [facility] [address] [place] [address], * (ABNORMAL) CBC W/DIFF AUTOMATED (05/11/2025 1:20 PM CDT) WBC 8.86 4.00 - 10.80 x10'3/uL 05/11/2025 8:[address] [facility] RBC 4.13 4.10 - 5.40 x10'6/uL 05/11/2025 8:15 [address] [facility] HGB 11.7(L) 12.0 - 16.0 G/DL 05/11/2025 8:[address] [facility] HCT 35.9(L) 36.0 - 47.0 % 05/11/2025 8:15 [address] [facility] MCV 86.9 78.0 - 100.0 FL 05/11/2025 8:15 PM [address] [facility] MCH 28.3 27.0 - 31.0 PG 05/11/2025 8:15 PM CDT [facility] MCHC 32.6(L) 33.0 - 36.0 G/DL 05/11/2025 8:15 [address] [facility] RDW 15.2(H) 11.5 - 14.5 % 05/11/2025 8:15 [address] [facility] PLT 357(H) 150 - 350 x10'3/uL 05/11/2025 8:15 PM [address] [facility] MPV 10.4 7.4 - 10.4 FL 05/11/2025 8:15 [address] [facility] DIFFERENTIAL TYPE AUTOMATED DIFFERENTIAL 05/11/2025 8:15 [address] [facility] NEUTROPHILS % 62.6 % 05/11/2025 8:[address] [facility] LYMPHOCYTES % 25.8 % 05/11/2025 8:[address] [facility] MONOCYTES % 8.7 % 05/11/2025 8:[address] [facility] EOSINOPHILS % 2.0 % 05/11/2025 8:15 [address] [facility] BASOPHILS % 0.8 % 05/11/2025 8:[address] [facility] IMMATURE GRANS % 0.1 % 05/11/2025 8:[address] [facility] ABS. NEUTROPHILS 5.54 1.60 - 8.30 x10'3/uL 05/11/2025 8:15 PM CDT [facility] ABS. LYMPHOCYTES 2.29 0.80 - 4.70 x10'3/uL 05/11/2025 8:15 PM CDT -[facility] ABS. MONOCYTES 0.77 0.00 - 1.50 x10'3/uL 05/11/2025 8:[address] [facility] ABS. EOSINOPHILS 0.18 0.00 - 0.40 x10'3/uL 05/11/2025 8:15 PM CDT -[facility] ABS. BASOPHILS 0.07 0.00 - 0.20 x10'3/uL 05/11/2025 8:15 [address] [facility] ABS. IMMATURE GRANULOCYTES 0.01 0.00 - 0.03 x10'3/uL 05/11/2025 8:[address] [facility] 05/11/2025 1:20 PM CDT Vinh Resendez DO LABORATORY Final Re sult Performing Organization Address City/[facility]/ZIP Co de Phone Number [facility] [address] [place] [address], * VITAMIN D, 25 OH (05/11/2025 1:20 PM CDT) VITAMIN D 25 HYDROXY TOTAL S/P/B 38.8 30 - 100 NG/ML 05/11/2025 7:[address] [facility] Comment: DEFICIENT <20 INSUFFICIENT 20-30 SUFFICIENT 30-100 05/11/2025 1:20 PM CDT Vinh Resendez LABORATORY Final Re sult Performing Organization Address City/[facility]/ZIP Co de Phone Number [facility] [address] [place] [address], [place] [phone] * FERRITIN (05/11/2025 1:20 PM CDT) FERRITIN 16.0 8 - 252 NG/ML 05/12/2025 11:39 AM CDT [facility] 05/11/2025 1:20 PM CDT Vinh Resendez DO LABORATORY Final Re sult [facility] [address] [place] [address], [place] [phone] * IMAGE GENERIC (04/07/2025) Anatomical Region Laterality Modality Other 04/07/2025 [facility] Scanned SCANNING Final Resu lt * PROCEDURE GENERIC (SCAN ORDER) (04/07/2025) 04/07/2025 [facility] Scanned SCANNING Final Resu lt * MRI GENERIC (03/24/2025) Anatomical Region Laterality Modality Other 03/24/2025 [facility] Scanned SCANNING Final Resu lt * PROCEDURE GENERIC (SCAN ORDER) (03/10/2025) 03/10/2025 [facility] Scanned SCANNING Final Resu lt * PROCEDURE GENERIC (SCAN ORDER) (03/10/2025) 03/10/2025 [facility] Scanned SCANNING Final Resu lt * HEP C SCANNED ORDERS (06/20/2023) [facility] Scanned SCANNING Final Resu lt [facility] ONBASE from Last 3 Months or Most Recently Relevant to Health Maintenance Insurance MEDICARE [facility] Care Teams Medicinal Chemist Relationship Specialty Start Date End Date Vinh Resendez DO [address] [place] [address] PCP - General FAMILY PRACTICE 05/27/21
--- OUTSIDE RECORDS SUMMARY | 2025-05-18 15:37 | XMS_ITS | Encounter Summary ---
Author Organization [facility] Health Address [address] [facility] [place] [address] Care Team Providers Care Washer Meat Name Role Phone Roberto Garcia MD Primary Care Provider [phone] Encounter Details Date Type Department Care Team (Late st Contact Info) Description 01/02/2006 [facility] Outpatient Visit [facility] [address] [place] [address] Abner Alexis MD [address] [facility] [address] [place], [place] [id number] Social History Tobacco Use Types Packs/Day Years Used Date Smoking Tobacco: Never Assessed Comments Unknown Sex and Gender Information Value Date Recorded Sex Assigned at Not on file Legal Sex Female 6:30 AM GOLF COURSE EQUIPMENT OPERATOR Gender Identity Not on file Sexual Orientation Not on file documented as of this encounter Plan of Treatment Not on file documented as of this encounter Visit Diagnoses Not on filedocumented in this encounter Care Teams Washer Meat Relationship Specialty Start Date End Date Roberto Garcia MD [address] [place], [place] [address] [place] [address] PCP - General Internal Medicine 07/10/12 documented as of this encounter
--- OUTSIDE RECORDS SUMMARY | 2025-05-18 15:37 | XMS_ITS | Clinical Summary ---
Author Organization [facility] [employer] Address [address] [place] [address] Care Team Providers Care Surface Hydrologist Name Role Phone Roberto Garcia MD Primary Care Provider [phone] Source Comments [facility],non-owned Affiliates and Associated Physician Practices is amultiple site organization consisting of ambulatory clinics and hospital sitesin [place], [place], [place] and [place]. This disclosure is being madepursuant to the Care Everywhere program and may not contain all information available regarding this patient. Last updated 18.[facility] [employer] Allergies Active Allergy Reactions Criticality Noted Date [...] on file Legal Sex Female 6:30 AM CAREER SERVICES COORDINATOR Gender Identity Not on file Sexual Orientation Not on file Occupation Industry Job Start Date Job End Date RETIRED Not on file Not on file Not on file Last Filed Vital Signs Vital Sign Reading Time Taken Comments Blood Pressure 102/72 08/14/2012 10:53 AM CAREER SERVICES COORDINATOR Pulse 68 08/14/2012 10:53 AM CAREER SERVICES COORDINATOR Temperature - - Respiratory Rate - - Oxygen Saturation - - Inhaled Oxygen Concentration - - Weight 77.1 kg (170 lb) 08/14/2012 10:53 AM CAREER SERVICES COORDINATOR Height 162.6 cm (5' 4) 08/14/2012 10:53 AM CAREER SERVICES COORDINATOR Body Mass Index 29.18 08/14/2012 10:53 AM CAREER SERVICES COORDINATOR Plan of Treatment Health Maintenance Due Date [...] age to complete this topic Insurance MEDICARE [facility] [place] [facility] [address] Care Teams Surface Hydrologist Relationship Specialty Start Date End Date Roberto Garcia MD [address] [place], [place] [address] [place] [address] PCP - General Internal Medicine 07/10/12
--- OUTSIDE RECORDS SUMMARY | 2025-05-18 15:37 | XMS_ITS | Clinical Summary ---
Author Organization [facility] [employer] Address [address] [place] [phone] Phone Care Team Providers Care Principal Systems Engineer Name Role Phone DanielelizabethVinh Gwen GOFF Primary [...] on file Legal Sex Female 8:17 AM [facility] Gender Identity Not on file Sexual Orientation Not on file Last Filed Vital Signs Vital Sign Reading Time Taken Comments Blood Pressure 132/76 09/13/2022 11:35 AM OPERATIONAL TEST MECHANIC Pulse - - Temperature 36.6 C (97.9 F) 09/13/2022 11:35 AM OPERATIONAL TEST MECHANIC Respiratory Rate 18 09/13/2022 11:35 AM OPERATIONAL TEST MECHANIC Oxygen Saturation - - Inhaled Oxygen Concentration - - Weight 83 kg (183 lb) 09/13/2022 11:35 AM OPERATIONAL TEST MECHANIC Height 162.6 cm (5' 4) 09/13/2022 11:35 AM OPERATIONAL TEST MECHANIC Body Mass Index 31.41 09/13/2022 11:35 AM OPERATIONAL TEST MECHANIC Plan of Treatment Health Maintenance Due Date Last Done Comments Pneumococcal PPSV23/PCV13 65 + Years / Low and Medium Risk (1 of 2 - PCV) 1996 Influenza Vaccine (#1) 2025 Insurance MEDICARE [facility] Care Teams Principal Systems Engineer Relationship Specialty Start Date End Date Vinh Resendez DO [address] [place] [id number] PCP - General Family Medicine 08/10/21
== END 2025-05-18 14:57 | disposition left against medical advice (07) ==
PROVIDERS: PCP Student in an Organized Health Care Education/Training Program
DX: Z53.21 Procedure and treatment not carried out due to patient leaving prior to being seen by health care provider (principal)
CPT/HCPCS: 99199

== ENCOUNTER 2025-06-08 08:28 | Outpatient (CLI) | payer MEDICARE, SELFPAY ==
--- OUTSIDE RECORDS SUMMARY | 2025-06-08 08:42 | XMS_ITS | Clinical Summary ---
Author Organization [facility] Address [address] [place] [id number] Phone Care Team Providers Care Polisher Balance Screwhead Name Role Phone MalVinh Gwen GOFF Primary [...] on file Legal Sex Female 8:17 AM [facility] Gender Identity Not on file Sexual Orientation Not on file Last Filed Vital Signs Vital Sign Reading Time Taken Comments Blood Pressure 132/76 09/13/2022 11:35 AM FRYER OPERATOR Pulse - - Temperature 36.6 C (97.9 F) 09/13/2022 11:35 AM FRYER OPERATOR Respiratory Rate 18 09/13/2022 11:35 AM FRYER OPERATOR Oxygen Saturation - - Inhaled Oxygen Concentration - - Weight 83 kg (183 lb) 09/13/2022 11:35 AM FRYER OPERATOR Height 162.6 cm (5' 4) 09/13/2022 11:35 AM FRYER OPERATOR Body Mass Index 31.41 09/13/2022 11:35 AM FRYER OPERATOR Plan of Treatment Health Maintenance Due Date Last Done Comments Pneumococcal PPSV23/PCV13 65 + Years / Low and Medium Risk (1 of 2 - PCV) 1996 Influenza Vaccine (#1) 2025 Insurance MEDICARE [facility] Care Teams Polisher Balance Screwhead Relationship Specialty Start Date End Date Vinh Resendez DO [address] [place] [id number] PCP - General Family Medicine 08/10/21
--- OUTSIDE RECORDS SUMMARY | 2025-06-08 08:42 | XMS_ITS | Clinical Summary ---
Author Organization [facility] [employer] Address [address] [place] [address] Care Team Providers Care Preforming Machine Operator Name Role Phone Roberto Garcia MD Primary Care Provider [phone] Source Comments [facility],non-owned Affiliates and Associated Physician Practices is amultiple site organization consisting of ambulatory clinics and hospital sitesin [place], [place], [place] and [place]. This disclosure is being madepursuant to the Care Everywhere program and may not contain all information available regarding this patient. Last updated 18.[facility] Allergies Active Allergy Reactions Criticality Noted Date [...] on file Legal Sex Female 6:30 AM RETAIL PLANNER Gender Identity Not on file Sexual Orientation Not on file Occupation Industry Job Start Date Job End Date RETIRED Not on file Not on file Not on file Last Filed Vital Signs Vital Sign Reading Time Taken Comments Blood Pressure 102/72 08/14/2012 10:53 AM RETAIL PLANNER Pulse 68 08/14/2012 10:53 AM RETAIL PLANNER Temperature - - Respiratory Rate - - Oxygen Saturation - - Inhaled Oxygen Concentration - - Weight 77.1 kg (170 lb) 08/14/2012 10:53 AM RETAIL PLANNER Height 162.6 cm (5' 4) 08/14/2012 10:53 AM RETAIL PLANNER Body Mass Index 29.18 08/14/2012 10:53 AM RETAIL PLANNER Plan of Treatment Health Maintenance Due Date Last Done Comments BONE DENSITY TESTING 1945 HEPATITIS C SCREENING 08/01/1964 DTAP/TDAP/TD VACCINES (1 - Tdap) 1965 PNEUMOCOCCAL VACCINE 50+ (1 of 1 - PCV) 1996 ZOSTER VACCINE (1 of 2) 1996 Respiratory Syncytial Virus (RSV) Vaccine Pt: or over 60 yrs (1 - 1-dose 75+ series) 2021 DEPRESSION SCREENING 10/01/2024 COVID-19 VACCINE (1 - 2023-2 5 season) 2025 INFLUENZA VACCINE (#1) 2025 HEPATITIS B VACCINE [...] age to complete this topic Insurance MEDICARE [facility] [place] [facility] Address: [address] [place] [address] [facility] [address] Care Teams Preforming Machine Operator Relationship Specialty Start Date End Date Roberto Garcia MD [address] [place], [place] [address] [place] [address] PCP - General Internal Medicine 07/10/12
--- OUTSIDE RECORDS SUMMARY | 2025-06-08 08:42 | XMS_ITS | Encounter Summary ---
Author Organization [facility] Address [address] [place] [address] Care Team Providers Care Expanded Duty Dental Assistant Name Role Phone Roberto Garcia MD Primary Care Provider [phone] Encounter Details Date Type Department Care Team (Late st Contact Info) Description 01/02/2006 [facility] Outpatient Visit [facility] DEFAULT [address] [place] [address] Abner Alexis MD [address] 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
[2025-06-08 09:36] LABS: Albumin Level 4.1 g/dL (3.5-5.1); Anion Gap 9 mmol/L (4-12); Blood Urea Nitrogen 23 mg/dL (7-17); Calcium 9.5 mg/dL (8.4-10.2); Carbon Dioxide 23 mmol/L (22-30); Chloride 105 mmol/L (98-107); Estimated Glomerular Filt Rate 40; Glucose 101 mg/dL (65-110); Potassium 4.4 mmol/L (3.4-5.0); Sodium 137 mmol/L (137-145)
[2025-06-08 09:40] LABS: Total Protein Urine Random 8 mg/dL; Ur Ttl Prot Creatinine Ratio 0.07 mg/mg (0-0.20)
[2025-06-08 09:57] LABS: Parathyroid Intact 36.3 pg/mL (14.5-75.2)
== END 2025-06-08 08:29 | disposition home or self-care (01) ==
PROVIDERS: PCP Student in an Organized Health Care Education/Training Program; Visit Provider Internal Medicine Nephrology
DX: E55.9 Vitamin D deficiency, unspecified (principal); I12.9 Hypertensive chronic kidney disease with stage 1 through stage 4 chronic kidney disease, or unspecified chronic kidney disease; N18.31 Chronic kidney disease, stage 3a; N25.81 Secondary hyperparathyroidism of renal origin
CPT/HCPCS: 36415; 80069; 82306; 82570; 83970; 84156

== ENCOUNTER 2025-07-18 12:47 | Outpatient (CLI) | payer MEDICARE, SELFPAY ==
--- NOTE | ~2025-07-18 | MR_ITS ---
EXAMINATION: MR cervical spine wo con DATE: 07/18/2025 13:37 INDICATION: Spondylosis without myelopathy or radiculopathy. TECHNIQUE: Magnetic resonance imaging (MRI) of the cervical spine was performed without intravenous contrast. COMPARISON: Cervical spine MRI 06/03/2023 FINDINGS: There is kyphosis of cervical spine. There are changes of anterior fusion procedures from C3 to C6 with healed interbody bone graft. There is a chronic compression fracture of C7 with 1/5 loss of height. Intervertebral disc heights are normal in cervical spine. There is chronic increased T2-weighted signal intensity in the spinal cord at C3-C4, consistent with myelomalacia. The following disc levels are specifically discussed: C2-C3: There is a central protrusion. There is mild left uncovertebral joint hypertrophy. There is mild right facet joint osteoarthritis. There is ankylosis of left facet joint with mild hypertrophy. There is mild left neural foraminal stenosis. There is mild central canal stenosis. C3-C4: There is moderate bilateral uncovertebral joint hypertrophy. There is mild bilateral facet joint hypertrophy. There is mild right and moderate left neural foraminal stenosis. There is mild central canal stenosis. There is posterior decompression. C4-C5: There is no uncovertebral joint hypertrophy. There is mild bilateral facet joint hypertrophy. There is no neural foraminal stenosis. There is no central canal stenosis. C5-C6: There is mild right and severe left uncovertebral joint hypertrophy. There is mild bilateral facet joint hypertrophy. There is moderate left neural foraminal stenosis. There is no central canal stenosis. C6-C7: There is mild bilateral uncovertebral joint hypertrophy. There is severe right facet joint osteoarthritis. There is ankylosis of the left facet joint with mild hypertrophy. There is mild left neural foraminal stenosis. There is no central canal stenosis. C7-T1: There is a central extrusion. There is no uncovertebral joint osteoarthritis. There is severe bilateral facet joint osteoarthritis. There is mild bilateral neural foraminal stenosis. There is no central canal stenosis. IMPRESSION: 1. Anterior fusion procedures from C3 to C6. 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 2. Moderate left neural foraminal stenosis at C5-C6. Otherwise mild cervical spondylosis. 3. Chronic myelomalacia at C3-C4. Reviewed, dictated and finalized at location E. IMPRESSION: 1. Anterior fusion procedures from C3 to C6. 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 2. Moderate left neural foraminal stenosis at C5-C6. Otherwise mild cervical sp ondylosis. 3. Chronic myelomalacia at C3-C4.
== END 2025-07-18 12:48 | disposition home or self-care (01) ==
PROVIDERS: PCP Student in an Organized Health Care Education/Training Program; Visit Provider Neurological Surgery
DX: M47.812 Spondylosis without myelopathy or radiculopathy, cervical region (principal); G95.9 Disease of spinal cord, unspecified; Z98.1 Arthrodesis status; M48.02 Spinal stenosis, cervical region
CPT/HCPCS: 72141